=== PATIENT | female | born 1960 | race Asian ===

== ENCOUNTER → 2017-03-06 | Outpatient (CLI) | payer OTHER | END | disposition home or self-care (01) | LOC: C.PAPS 08:42 | PROVIDERS: ATTEND Obstetrics & Gynecology | DX: Z12.4 Encounter for screening for malignant neoplasm of cervix (principal) ==

== ENCOUNTER → 2017-07-27 | Outpatient (CLI) | payer OTHER ==
--- NOTE | 2017-07-27 08:54 | DIAGNOSTIC IMAGING REPORT ---
L-SPINE MIN 4 VIEWS ROUTINE HISTORY: 57 years-old Female J06.9 Acute upper respiratory [id number] acute low back pain on the left side with tingling of the left lower extremity for 2 weeks. COMPARISON: None available TECHNIQUE: 5 views of the lumbar spine FINDINGS: 5 lumbar type vertebral segments are present. Minimal multilevel spondylitic changes. Mild facet arthropathy at L4-L5 and L5-S1. Intervertebral disc spaces are generally well maintained. No acute fracture or subluxation. Mild degenerative changes of the bilateral hips. IMPRESSION: 1. No acute fracture or subluxation. 2. Minimal spondylitic changes of the lumbar spine with mild facet arthropathy at L4-L5 and L5-S1. The above report was generated using voice recognition software. It may contain grammatical, syntax or spelling errors. Electronically signed by: Osmani Perales M.D. 07/27/2017 8:53 AM Dictated Date/Time: 07/27/2017 8:51 AM
== END | disposition home or self-care (01) ==
LOC: C.RAD1850 08:32
PROVIDERS: ATTEND Internal Medicine
DX: J06.9 Acute upper respiratory infection, unspecified (principal)

== ENCOUNTER → 2017-10-16 | Outpatient (CLI) | payer OTHER ==
[2017-10-16 12:15] LABS: BASO % 0.5 %; BASO ABS # 0.04 K/uL (0-0.2); EOS % 1.1 %; EOS ABS # 0.08 K/uL (0-0.5); HEMATOCRIT 41.9 % (37-47); HEMOGLOBIN 14.3 g/dL (12.0-16.0); IG# 0.01 K/uL (0.00-0.02); LYMPH % 40.9 %; LYMPH ABS # 3.09 K/uL (1.2-3.4); MEAN CELL VOLUME 86.2 fL (80-100); MEAN CORPUSCULAR HEMOGLOBIN 29.4 pg (25-34); MEAN CORPUSCULAR HGB CONC 34.1 g/dl (32-36); MONO % 4.5 %; MONO ABS # 0.34 K/uL (0.11-0.59); NEUT % 52.9 %; NEUT ABS # 3.99 K/uL (1.4-6.5); PLATELET COUNT 339 K/uL (130-400); RED CELL DISTRIBUTION WIDTH CV 13.1 % (11.5-14.5); RED CELL DISTRIBUTION WIDTH SD 41.4 fL (36.4-46.3); WHITE BLOOD COUNT 7.55 K/uL (4.8-10.8)
[2017-10-16 12:27] LABS: ALBUMIN 4.2 gm/dl (3.4-5.0); ALT/SGPT 35 U/L (12-78); AST/SGOT 15 U/L (15-37); BLOOD UREA NITROGEN 15 mg/dl (7-18); CALCIUM 9.3 mg/dl (8.5-10.1); CARBON DIOXIDE 25 mmol/L (21-32); CREATININE 0.63 mg/dl (0.60-1.20); GLUCOSE 102 mg/dl (70-99); POTASSIUM 3.7 mmol/L (3.5-5.1); SODIUM 136 mmol/L (136-145)
[2017-10-16 12:30] LABS: ALKALINE PHOSPHATASE 110 U/L (45-117); CHOLESTEROL 251 mg/dl (0-200); LDL CHOLESTEROL CALCULATED 146 mg/dl; TOTAL PROTEIN 7.7 gm/dl (6.4-8.2)
== END | disposition home or self-care (01) ==
LOC: C.LAB1850 10:59
PROVIDERS: ATTEND Internal Medicine
DX: R10.13 Epigastric pain (principal); E78.5 Hyperlipidemia, unspecified; I10 Essential (primary) hypertension

== ENCOUNTER → 2018-01-21 | Outpatient (CLI) | payer OTHER ==
--- NOTE | 2018-01-21 10:10 | DIAGNOSTIC IMAGING REPORT ---
ABDOMINAL ULTRASOUND, RIGHT UPPER QUADRANT HISTORY: EPIGASTRIC PAIN. COMPARISON: None. FINDINGS: Pancreas: The pancreatic tail is obscured by overlying bowel gas. The remaining portions of the pancreas are within normal limits. Liver: The liver is echogenic consistent with fatty change. Gallbladder: No gallbladder wall thickening. No gallstones. CBD: 6 Right kidney: No hydronephrosis. IMPRESSION: 1. Mild hepatic steatosis. 2. Normal gallbladder. No gallstones. Electronically signed by: Steve Sánchez M.D. 01/21/2018 10:08 AM Dictated Date/Time: 01/21/2018 10:07 AM
== END | disposition home or self-care (01) ==
LOC: C.ULTR 09:24
PROVIDERS: ATTEND Internal Medicine
DX: R10.13 Epigastric pain (principal)

== ENCOUNTER → 2018-04-27 | Outpatient (CLI) | payer OTHER | END | disposition home or self-care (01) | LOC: C.LAB1850 11:41 | PROVIDERS: ATTEND Internal Medicine | DX: R39.9 Unspecified symptoms and signs involving the genitourinary system (principal) ==

== ENCOUNTER 2022-10-04 08:41 | Inpatient (IN) ==
[2022-10-04] MEDS ORDERED: NITROGLYCERIN SL 0.4 MG/TAB TAB SL PRN ×2 (08:46→11:18)
[2022-10-04] MEDS ORDERED: ONDANSETRON INJ 2 MG/ML 2 ML VIAL IV STA (08:46)
[2022-10-04] MEDS ORDERED: TICAGRELOR 90 MG TAB PO ONE (08:46)
[2022-10-04] MEDS ORDERED: SODIUM CHLORIDE 0.9% 500 ML IV STA (08:46)
[2022-10-04] MEDS ORDERED: MoRPHine SULFATE 2 MG/ML CARP IV STA (08:46)
--- NOTE | 2022-10-04 08:56 | Emergency Department Note ---
History of Present Illness General Chief complaint: Heart Alert Time Seen by Provider: 10/04/22 08:46 History of Present Illness 62-year-old female presents to the ED with a chief complaint of chest pain. The symptoms started when the patient was shopping at [employer]. She had apparently just arrived there less than an hour ago. EMS was there picking up a fall patient when they were called to evaluate this patient in the lobby. The patient describes pressure in the central area of her chest and retrosternal area. She has associated shortness of breath and some nausea. EMS provided ASA and transported the patient here. The patient has a history of hypertension. She is chronically on amlodipine. She does take a baby aspirin as well as some atorvastatin daily. No other complaints at this time. Home Medications Medication Instructions Recorded Confirmed Type aspirin 81 mg chewable tablet 81 mg PO QAM 11/30/18 10/04/22 History cartilage 40 mg-collagen II 10 1 tab PO QAM 11/30/18 10/04/22 History mg-boron 5 mg-hyaluronate 3.3 mg tablet ([employer]) loratadine 10 mg tablet (Claritin) 10 mg PO DAILY PRN ALLERGY RELIEF 01/29/21 10/04/22 Rx #90 tabs ascorbate calcium (vitamin C) 500 500 mg PO QAM 01/13/22 10/04/22 History mg tablet cholecalciferol (vitamin D3) 50 50 mcg PO QAM 01/14/22 10/04/22 History mcg (2,000 unit) capsule (Vitamin D3) lutein 10 mg tablet 10 mg PO QAM 01/14/22 10/04/22 History amlodipine 5 mg tablet 5 mg PO BID #180 tabs 03/05/22 10/04/22 Rx atorvastatin 10 mg tablet 10 mg PO DAILY #30 tabs 09/05/22 10/04/22 Rx Allergies Allergy/AdvReac Type Severity Reaction Status Date / Time No Known Drug Allergies Allergy Verified 10/04/22 08:50 Past Med/Surg History Medical History Hyperlipidemia Hypertension Kidney stones Seasonal allergies Surgical History H/O colonoscopy with polypectomy History of cataract surgery RT/LEFT History of section x 2 Family History Father Cardiac disorder Myocardial infarction Mother Hypertension Sister Hypertension Brother Skin cancer Grandmother (Paternal) Stomach cancer Other No family history of adverse response to anesthesia Denies family history of Ovarian cancer Prostate cancer Breast cancer Colorectal cancer Social History Smoking Status: Unknown if ever smoked Second Hand Exposure: No; Hx Alcohol Use: No Hx Substance Use: No Preferred Language: Frisian Communication Ability: Effective Visual Impairment: No Limitations Hearing Ability: Normal Piano Player Required: No Beliefs That Will Affect Care: None marital status: Current Living Situation: Spouse current occupational status: employed current occupation: Self-employed Feels Safe at Home: Yes Seatbelt Use: always Assistive Devices: Glasses Review of Systems A total of 10 systems reviewed and were otherwise negative Physical Exam Vital Signs Vital Signs - 24 hr 10/04/22 08:48 10/04/22 08:48 10/04/22 08:54 Temperature 36.7 C Temperature Source Oral Oral Pulse Rate 56 L 76 Pulse Rate from SpO2 Sensor Respiratory Rate 20 Respiratory Effort / Characteristics Non-Labored Spontaneous Respiratory Depth Normal Respiratory Pattern Regular Blood Pressure 120/73 Blood Pressure Mean 88 Blood Pressure Position Lying Pulse Oximetry 98 Oxygen Delivery Method Room Air Room Air Sepsis Recent Fever Within 48 Hours No Sepsis New/Unexplained Change in Mental Status No Sepsis Action Taken by Nursing No Action Required 10/04/22 08:55 10/04/22 08:55 10/04/22 09:00 Temperature Temperature Source Pulse Rate 66 Pulse Rate from SpO2 Sensor Respiratory Rate 23 Respiratory Effort / Characteristics Respiratory Depth Respiratory Pattern Blood Pressure 130/79 147/73 H Blood Pressure Mean 96 97 Blood Pressure Position Pulse Oximetry Oxygen Delivery Method Room Air Room Air Room Air Sepsis Recent Fever Within 48 Hours Sepsis New/Unexplained Change in Mental Status Sepsis Action Taken by Nursing 10/04/22 09:00 Temperature Temperature Source Pulse Rate 57 L Pulse Rate from SpO2 Sensor 58 L Respiratory Rate 15 Respiratory Effort / Characteristics Respiratory Depth Respiratory Pattern Blood Pressure Blood Pressure Mean Blood Pressure Position Pulse Oximetry 100 Oxygen Delivery Method Room Air Sepsis Recent Fever Within 48 Hours Sepsis New/Unexplained Change in Mental Status Sepsis Action Taken by Nursing CONSTITUTIONAL/VITAL SIGNS: Reviewed / noted above. GENERAL: Non-toxic in appearance. INTEGUMENTARY: Warm, dry, and [place]. HEAD: Normocephalic. EYES: without scleral icterus or trauma. ENT/OROPHARYNX: clear and moist. LYMPHADENOPATHY/NECK: Is supple without lymphadenopathy or meningismus. RESPIRATORY: Clear to auscultation bilaterally. No increased work of breathing. CARDIOVASCULAR: Regular rate and rhythm. GI/ABDOMEN: Soft and nontender. No organomegaly or pulsatile mass. EXTREMITIES: Warm and well perfused. BACK: No CVA tenderness. NEUROLOGICAL: Intact without focal deficits. PSYCHIATRIC: normal affect. MUSCULOSKELETAL: Normally developed with good muscle tone. TRIAGE NURSING DOCUMENTATION REVIEWED. Course Administered Medications Nitroglycerin (Nitroglycerin Sl 0.4 Mg/Tab Tab) 0.4 mg SL UD PRN PRN Reason: Chest Pain Stop: 11/03/22 08:45 Last Admin: 10/04/22 09:06 Dose: 0.4 mg Documented By: CHERI Discontinued Medications Heparin Sodium (Porcine) (Heparin Sod (Porcine) 1000 Unit/Ml) 4,000 units IV NOW ONE Stop: 10/04/22 09:05 Last Admin: 10/04/22 09:07 Dose: 4,000 units Documented By: CHERI Co-signed By: BRYAN Sodium Chloride (Nss) 500 mls @ 999 mls/hr IV .Q31M STA Stop: 10/04/22 09:16 Last Admin: 10/04/22 08:59 Dose: 999 mls/hr Documented By: CHERI Morphine Sulfate (Morphine Sulfate 2 Mg/Ml Carp) 2 mg IV NOW STA Stop: 10/04/22 08:47 Last Admin: 10/04/22 08:58 Dose: 2 mg Documented By: CHERI Ondansetron HCl (Ondansetron Inj 2 Mg/Ml 2 Ml Vial) 4 mg IV NOW STA Stop: 10/04/22 08:47 Last Admin: 10/04/22 08:58 Dose: 4 mg Documented By: CHERI Ticagrelor (Ticagrelor 90 Mg Tab) 180 mg PO ONE ONE Stop: 10/04/22 08:47 Last Admin: 10/04/22 08:59 Dose: 180 mg Documented By: CHERI Critical Care Time Critical Care Time: Yes Total Critical Care Time: 30 I have personally spent 30 minutes of critical care time in the direct management of this patient. This includes bedside care, interpretation of diagnostic studies, and testing, discussion with consultants, patient, and family members, and other required patient management activities. This 30 m inutes is in excess of all separately billable procedures. Medical Decision Making Differential Diagnosis The differential that was considered includes acute myocardial infarction, acute coronary syndrome, myocarditis, pericarditis, pericardial effusions /tamponade, esophageal perforation, thoracic aortic dissection, pulmonary embolism, pneumonia, pneumothorax, pancreatitis, shingles, acute cholecystitis, perforated abdominal viscus. Medical Records Attestation: I reviewed the patient's medical records. Home Medications Current Medication List: was personally reviewed by me Laboratory Data Attestation: I reviewed the patient's lab results. Result diagrams: 10/04/22 08:52 10/04/22 08:52 Lab Results 10/04/22 10/04/22 10/04/22 Range/Units 08:52 08:52 08:52 WBC 11.61 H (4.8-10.8) K/ul RBC 4.57 (3.93-5.22) M/uL Hgb 13.3 (12.0-16.0) g/dl POC Hgb (12.0-16.0) g/dl Hct 39.0 (34.1-44.9) % POC Hct (37-47) % MCV 85.3 (80.0-100.0) fL MCH 29.1 (25.0-34.0) pg MCHC 34.1 (32.0-36.0) g/dL RDW Std Deviation 39.3 (36.4-46.3) fL RDW Coeff of Bg 12.7 (11.5-14.5) % Plt Count 412 H (130-400) K/uL MPV 8.8 L (9.4-12.3) fL PT 9.7 (9.0-12.0) Seconds INR 0.9 (0.9-1.1) APTT 21.3 (21.0-31.0) Seconds PTT Ratio 0.8 POC Sodium (135-144) mmol/L Sodium 141 (136-145) mmol/L POC Potassium (3.3-5.0) mmol/L Potassium 3.0 L (3.5-5.1) mmol/L POC Chloride (101-112) mmol/L Chloride 106 (98-107) mmol/L Carbon Dioxide 20 L (21-32) mmol/L POC Total CO2 (24-31) mmol/L Anion Gap 15 H (3-11) POC Anion Gap (16-25) mmol/L POC BUN (7-18) mg/dl BUN 17 (6-23) mg/dl Creatinine 0.68 (0.6-1.2) mg/dl POC Creatinine (0.6-1.3) mg/dl Est Cr Clr Drug Dosing 71.5 ml/min Est GFR ( Amer) 107.1 ml/min Est GFR (Non-Af Amer) 92.4 ml/min BUN/Creatinine Ratio 25.0 H (10-20) Glucose 215 H (70-99(Fasting)) mg/dl POC Glucose (other) (70-99) mg/dl Calcium 9.2 (8.5-10.1) mg/dl POC Ioniz Calcium Guilherme (1.12-1.32) mmol/l Total Bilirubin 0.6 (0.2-1.0) mg/dl AST 21 (13-39) U/L ALT 36 (7-52) U/L Alkaline Phosphatase 108 H (34-104) U/L Troponin I High Sens 4.0 (0-14) pg/ml Total Protein 7.1 (6.0-8.3) gm/dl Albumin 4.5 (3.4-5.0) gm/dl Globulin 2.6 (2.5-4.0) gm/dl Albumin/Globulin Ratio 1.7 (0.9-2) Lipase 19 (11-82) U/L SARS-CoV-2, RNA, NAAT (NEGATIVE) 10/04/22 10/04/22 Range/Units 08:55 08:55 WBC (4.8-10.8) K/ul RBC (3.93-5.22) M/uL Hgb (12.0-16.0) g/dl POC Hgb 13.6 (12.0-16.0) g/dl Hct (34.1-44.9) % POC Hct 40 (37-47) % MCV (80.0-100.0) fL MCH (25.0-34.0) pg MCHC (32.0-36.0) g/dL RDW Std Deviation (36.4-46.3) fL RDW Coeff of Bg (11.5-14.5) % Plt Count (130-400) K/uL MPV (9.4-12.3) fL PT (9.0-12.0) Seconds INR (0.9-1.1) APTT (21.0-31.0) Seconds PTT Ratio POC Sodium 141 (135-144) mmol/L Sodium (136-145) mmol/L POC Potassium 2.9 L (3.3-5.0) mmol/L Potassium (3.5-5.1) mmol/L POC Chloride 105 (101-112) mmol/L Chloride (98-107) mmol/L Carbon Dioxide (21-32) mmol/L POC Total CO2 19 L (24-31) mmol/L Anion Gap (3-11) POC Anion Gap 20.0 (16-25) mmol/L POC BUN 15 (7-18) mg/dl BUN (6-23) mg/dl Creatinine (0.6-1.2) mg/dl POC Creatinine 0.7 (0.6-1.3) mg/dl Est Cr Clr Drug Dosing ml/min Est GFR ( Amer) ml/min Est GFR (Non-Af Amer) ml/min BUN/Creatinine Ratio (10-20) Glucose (70-99(Fasting)) mg/dl POC Glucose (other) 212 H (70-99) mg/dl Calcium (8.5-10.1) mg/dl POC Ioniz Calcium Guilherme 1.08 L (1.12-1.32) mmol/l Total Bilirubin (0.2-1.0) mg/dl AST (13-39) U/L ALT (7-52) U/L Alkaline Phosphatase (34-104) U/L Troponin I High Sens (0-14) pg/ml Total Protein (6.0-8.3) gm/dl Albumin (3.4-5.0) gm/dl Globulin (2.5-4.0) gm/dl Albumin/Globulin Ratio (0.9-2) Lipase (11-82) U/L SARS-CoV-2, RNA, NAAT NEGATIVE (NEGATIVE) Imaging Data My Impression: Chest x-ray: Per my interpretation does not show any acute disease. No pneumonia or pneumothorax. No obvious congestive heart failure. Radiologist's Impression: Chest X-Ray 10/04/22 08:47 XR chest 1V portable CLINICAL HISTORY: Chest pain, nonspecific COMPARISON STUDY: Chest radiograph January 24, 2022. FINDINGS: Lung volumes are normal. Lungs are clear. There is no pneumothorax or pleural effusion. Cardiac size is normal. Mediastinal contours are normal. There is no evidence for pulmonary edema. IMPRESSION: No acute cardiopulmonary findings. ACT 112: Negative or not required by law. Electronically signed by: Scotty Michel M.D. 10/04/2022 9:04 AM ECG Data Attestation: I personally reviewed and interpreted this ECG as follows: Additional Comments: Twelve-lead EKG: Per my interpretation shows a sinus rhythm at a rate of 67 with a first-degree AV block. ST elevations in the inferior leads suggesting acute inferior wall ID. Reciprocal changes anteriorly. MDM Narrative 62-year-old female presents with chest pressure and ST elevations in the inferior leads suggestive of an acute inferior wall ID. The EMS provider called prior to the patient's arrival and a heart alert was called prior to the patient's arrival. She was treated with aspirin p.o. by EMS. 324 mg was given. She was also given a nitroglycerin sublingual which did not seem to help much take your pain from a 10 to a 9. In the emergency department she was treated with some IV fluids 500 cc normal saline bolus. She was also given Brilinta 180 mg p.o., Zofran 4 mg IV and morphine 2 mg IV. She was also given nitroglycerin sublingual here. The patient CBC and chemistry panel was unremarkable. Troponin was negative. Glucose is 215. COVID test was negative. The patient was taken to the [facility] by cardiology services. Impression & Plan Acute ID, inferior wall Discharge Plan Visit Data Chief Complaint: Heart Alert ED Provider: Baljit Tang Discharge Problem: Acute ID, inferior wall Patient Disposition: Admitted As Inpatient Discharge Instructions Interventions: ED Discharge Assessment Last Done: 10/04/22 09:11
[2022-10-04] MEDS ORDERED: niCARdipine HCL INJ 2.5 MG/ML 10 ML AMP ONE (08:57)
[2022-10-04] MEDS ORDERED: HEPARIN (PORCINE) 1000 UNIT/ML 10 ML (CATH LAB USE ONLY) ONE ×2 (08:57→10:30)
[2022-10-04] MEDS ORDERED: MIDAZOLAM HCL 1 MG/ML 2ML VIAL ONE ×2 (08:57→10:09)
[2022-10-04] MEDS ORDERED: fentaNYL citrate 100 MCG/2 ML VIAL ONE ×2 (08:57→10:09)
[2022-10-04] MEDS ORDERED: NITROGLYCERIN/D5W 100MCG/ML 20ML SYR ONE ×2 (08:58→10:11)
[2022-10-04 09:00] LABS: Hemoglobin 13.3 g/dl (12.0-16.0); Mean Corpuscular Hemoglobin 29.1 pg (25.0-34.0); Mean Corpuscular Hgb Conc 34.1 g/dL (32.0-36.0); Mean Corpuscular Volume 85.3 fL (80.0-100.0); Mean Platelet Volume 8.8 fL (9.4-12.3); Platelet Count 412 K/uL (130-400); RDW Coefficient of Variation 12.7 % (11.5-14.5); RDW Standard Deviation 39.3 fL (36.4-46.3); Red Blood Count 4.57 M/uL (3.93-5.22); White Blood Count 11.61 K/ul (4.8-10.8)
[2022-10-04] MEDS ORDERED: LIDOCAINE 1% LOCAL 20 ML VIAL ONE (09:03)
[2022-10-04] MEDS ORDERED: HEPARIN SOD (PORCINE) 1000 UNIT/ML IV ONE (09:04)
--- NOTE | 2022-10-04 09:06 | XRay Report ---
XR chest 1V portable CLINICAL HISTORY: Chest pain, nonspecific COMPARISON STUDY: Chest radiograph January 24, 2022. FINDINGS: Lung volumes are normal. Lungs are clear. There is no pneumothorax or pleural effusion. Car diac size is normal. Mediastinal contours are normal. There is no evidence for pulmonary edema. IMPRESSION: No acute cardiopulmonary findings. ACT 112: Negative or not required by law. Electronically signed by: Scotty Michel M.D. 10/04/2022 9:04 AM
[2022-10-04 09:07] LABS: iSTAT Creatinine 0.7 mg/dl (0.6-1.3); iSTAT Hemoglobin 13.6 g/dl (12.0-16.0); iSTAT Ionized Calcium 1.08 mmol/l (1.12-1.32); iSTAT Potassium 2.9 mmol/L (3.3-5.0)
[2022-10-04 09:18] LABS: INR 0.9 (0.9-1.1); Partial Thromboplastin Ratio 0.8; Partial Thromboplastin Time 21.3 Seconds (21.0-31.0); Prothrombin Time 9.7 Seconds (9.0-12.0)
[2022-10-04 09:36] LABS: Albumin Globulin Ratio 1.7 (0.9-2); Albumin Level 4.5 gm/dl (3.4-5.0); Bilirubin,Total 0.6 mg/dl (0.2-1.0); Calcium 9.2 mg/dl (8.5-10.1); Creatinine Clr Calc Pharmacy 71.5 ml/min; Est GFR (African American) 107.1 ml/min; Est GFR (Non-African American) 92.4 ml/min; Globulin 2.6 gm/dl (2.5-4.0); Total Protein 7.1 gm/dl (6.0-8.3)
[2022-10-04 09:44] LABS: ALC (manual) 6.27 K/uL (1.2-3.4); ANC (manual) 4.88 K/uL (1.4-6.5); Eosinophils # (manual) 0.12 K/uL (0-0.50); Eosinophils % (manual) 1 %; Large Granular Lymph # (manua 3.13 K/uL; Large Granular Lymph % (manual) 27 %; Lymphocytes # (manual) 3.13 K/uL (1.2-3.4); Lymphocytes % (manual) 27 %; Metamyelocytes # (manual) 0.12 K/uL (0-0); Metamyelocytes % (manual) 1 %; Monocytes # (manual) 0.35 K/uL (0.24-0.82); Monocytes % (manual) 3 %; Neutrophils # (manual) 4.88 K/uL (1.4-6.5); Neutrophils % (manual) 42 %
[2022-10-04] MEDS ORDERED: EPTIFIBATIDE 0.75 MG/ML 75MG VIAL (CATH LAB USE ONLY) IV ONE (10:29)
[2022-10-04] MEDS ORDERED: EPTIFIBATIDE 2 MG/ML 10 ML VIAL (CATH LAB USE ONLY) IV ONE ×2 (10:30)
[2022-10-04] MEDS ORDERED: SODIUM CHLORIDE 0.9% 1000ML 1,000 ML IV SCH (11:30)
--- NOTE | 2022-10-04 11:38 | Pre Anesthesia Assessment ---
Date of Service October 04, 2022 Pre Sedation Assessment Vital Signs Temp Pulse Resp BP Pulse Ox O2 Del Method 10/04/22 09:00 57 L 15 100 Room Air 10/04/22 09:00 147/73 H Room Air 10/04/22 08:55 130/79 Room Air 10/04/22 08:55 66 23 Room Air 10/04/22 08:54 76 Room Air 10/04/22 08:48 36.7 C 10/04/22 08:48 56 L 20 120/73 98 Room Air Cardiovascular RRR, no murmur, no edema Respiratory normal respiratory effort, lungs clear to auscultation Pre-Sedation Airway Assessment Smoking Status: Unknown if ever smoked Mallampati 2 ASA for Notes The planned sedation has been discussed with the patient. Informed Consent was obtained. I have identified the patient, determined the appropriateness of sedation and have assessed the patient immediately prior to the procedure. All medicine(s) and interventions are by my order.
--- NOTE | 2022-10-04 11:40 | Post Anesthesia Assessment ---
Date of Service October 04, 2022 Post Sedation Assessment Vital Signs Temp Pulse Resp BP Pulse Ox O2 Del Method 10/04/22 09:00 57 L 15 100 Room Air 10/04/22 09:00 147/73 H Room Air 10/04/22 08:55 130/79 Room Air 10/04/22 08:55 66 23 Room Air 10/04/22 08:54 76 Room Air 10/04/22 08:48 36.7 C 10/04/22 08:48 56 L 20 120/73 98 Room Air Recovery Score Activity: Moves 4 extremities Respiration: Deep Breath/Cough Circulation: +/-20% PreAnes Value Consciousness: Fully Awake Oxygen Saturation: > 92% On Room Air Discharge Sedation Level of Care: Phase I Post Sedation Plan On clinical assessment, the patient appears to have tolerated the sedation without complications. Patient is recovering as anticipated. Patient will continue to be monitored by nursing and may be discharged when sedation discharge criteria are met per below protocol. Upon Completions of procedure up to 15 minutes continue every 5 minute vital signs and the P.A.R. score; then discharge to a Phase I or Fast Track to Phase II per the following guidelines: * Discharge Patient to appropriate Phase II area if PAR is 8 or greater or return to pre- procedure baseline. The post - procedure orders will be as directed. * If PAR score is less than 8 or not return to pre-procedure baseline then patient will follow Phase I monitoring till PAR is reached for Phase II. The Phase I may be done in procedure room or may call to secure a Phase I area. * If naloxone or flumazenil are used for reversal, hold in Phase I for continued monitoring from when last reversal dose was given for a minimum of 60 minutes or longer pending the nurse and/or physician discretion of patient condition before discharge to Phase II. Please call the Sedation Physician to re-evaluate and complete post-note for discharge to Phase II area. Do NOT discharge from procedure sedation or Phase 1 until post- sedation evaluation note is complete by procedure /sedation MD Sedation Discharge Instructions to be given to the patient at discharge to home. [facility] [place]odes (Charges) Indication for Procedure Indication for procedure: Inferior STEMI Sedation/Anesthesia Procedure 1: Sedation/Anesthesia: 85555 Mod Sedation by the same physician;Init15 Min Child Age 5 & Up Total Sedation Time (minutes): 100 Procedure 2: Sedation/Anesthesia: 20299 Mod Sedation by the same physician; Ea [id number] Minutes (Additional 85 minutes) Total Sedation Time (minutes): 100
--- NOTE | 2022-10-04 11:55 | Critical Care Consultation ---
Date of Consultation October 04, 2022 Assessment & Plan (1) Acute [place], inferior wall: Impression: 62-year-old female patient presents to the ICU status post heart catheterization. Neuro - [facility] ICU: Negative Cardiac - S/P Cardiac Cath -Nursing staff reported 2 drug-eluting stents -Dual antiplatelet therapy -Reported requires Integrilin to finish infusing Respiratory - - Continuous monitoring pulse ox GI - Heart healthy diet -Hypertriglyceridemia and hypercholesterolemia -High intensity statin RENAL/LYTES - Monitor routine BMPs -Hypokalemia -40 M EQ twice daily - Strict I's and O's ENDO - - hemoglobin A1c pending HEME - H&H stable, monitor routine CBC ID - No negation for infectious process at this time LINES/IV ACCESS - Peripheral IVs DVT PROPHYLAXIS - SCDs, on heparin drip History of Present Illness Reason for Consultation: Status post PCI for ST elevation [place] Attending Physician: Hardy Muller MD History of Present Illness Patient is a 62-year-old female with crushing retrosternal chest pain that she experienced while shopping at [employer]. She was brought by EMS to the emergency department and was diagnosed with an ST elevation [place]. She went emergently to the [facility] and received what was reported to me as 2 drug-eluting stents, currently documentation confirming this is not in the EMR. She was reported to have significant improvement and then had return of 9 out of 10 chest pain which prompted repeat evaluation and the patient was found to have thrombus performed in the recently placed drug-eluting stents. This was evacuated. Currently the patient has 1 out of 10 chest pain and is significantly improved. Allergies Allergy/AdvReac Type Severity Reaction Status Date / Time No Known Drug Allergies Allergy Verified 10/04/22 08:50 Home Medications Medication Instructions Recorded Confirmed Type aspirin 81 mg chewable tablet 81 mg PO QAM 11/30/18 10/04/22 History cartilage 40 mg-collagen II 10 1 tab PO QAM 11/30/18 10/04/22 History mg-boron 5 mg-hyaluronate 3.3 mg tablet (Trunkbow) loratadine 10 mg tablet (Claritin) 10 mg PO DAILY PRN ALLERGY RELIEF 01/29/21 1 Rx #90 tabs ascorbate calcium (vitamin C) 500 500 mg PO QAM 01/13/22 10/04/22 History mg tablet cholecalciferol (vitamin D3) 50 50 mcg PO QAM 01/14/22 10/04/22 History mcg (2,000 unit) capsule (Vitamin D3) lutein 10 mg tablet 10 mg PO QAM 01/14/22 10/04/22 History amlodipine 5 mg tablet 5 mg PO BID #180 tabs 03/05/22 10/04/22 Rx atorvastatin 10 mg tablet 10 mg PO DAILY #30 tabs 09/05/22 10/04/22 Rx Patient History Medical History Hyperlipidemia Hypertension Kidney stones Seasonal allergies Surgical History H/O colonoscopy with polypectomy History of cataract surgery RT/LEFT History of section x 2 Family History Father Cardiac disorder Myocardial infarction Mother Hypertension Sister Hypertension Brother Skin cancer Grandmother (Paternal) Stomach cancer Other No family history of adverse response to anesthesia Denies family history of Ovarian cancer Prostate cancer Breast cancer Colorectal cancer Social History Smoking Status: Unknown if ever smoked Second Hand Exposure: No; Hx Alcohol Use: No Hx Substance Use: No Preferred Language: Arabic Communication Ability: Effective Visual Impairment: No Limitations Hearing Ability: Normal Solution Director Required: No Beliefs That Will Affect Care: None marital status: Current Living Situation: Spouse current occupational status: employed current occupation: Self-employed Feels Safe at Home: Yes Seatbelt Use: always Assistive Devices: Glasses Review of Systems Review of Systems: 1 out of 10 retrosternal chest pain. Physical Exam Physical Exam: General: Alert. nontoxic. Skin: Warm, dry, Head: Atraumatic Ears, nose, mouth and throat: airway patent Cardiovascular: Normal peripheral perfusion Respiratory: no respiratory distress Gastrointestinal: Non distended Musculoskeletal: No deformity Results & Data Results & Data ([facility]) Vital Signs (Past 12 Hours) Vital Signs Temp Pulse Pulse Resp BP BP Pulse Ox 10/04/22 11:15 36.1 C L 88 20 150/98 H 94 10/04/22 09:00 57 L 15 100 10/04/22 09:00 147/73 H 10/04/22 08:55 130/79 10/04/22 08:55 66 23 10/04/22 08:54 76 10/04/22 08:48 36.7 C 10/04/22 08:48 56 L 20 120/73 98 O2 Del Method 10/04/22 11:15 Room Air 10/04/22 09:00 Room Air 10/04/22 09:00 Room Air 10/04/22 08:55 Room Air 10/04/22 08:55 Room Air 10/04/22 08:54 Room Air 10/04/22 08:48 10/04/22 08:48 Room Air Critical Care Results & Data Vital Signs (Past 12 Hours) Vital Signs Temp Pulse Pulse Resp BP BP Pulse Ox 10/04/22 11:15 36.1 C L 88 20 150/98 H 94 10/04/22 09:00 57 L 15 100 10/04/22 09:00 147/73 H 10/04/22 08:55 130/79 10/04/22 08:55 66 23 10/04/22 08:54 76 10/04/22 08:48 36.7 C 10/04/22 08:48 56 L 20 120/73 98 O2 Del Method 10/04/22 11:15 Room Air 10/04/22 09:00 Room Air 10/04/22 09:00 Room Air 10/04/22 08:55 Room Air 10/04/22 08:55 Room Air 10/04/22 08:54 Room Air 10/04/22 08:48 10/04/22 08:48 Room Air Lab & Micro Results (Past 24 Hours) RBC 4.57 M/uL (3.93-5.22) 10/04/22 WBC 11.61 K/ul (4.8-10.8) H 10/04/22 Hgb 13.3 g/dl (12.0-16.0) 10/04/22 Hct 39.0 % (34.1-44.9) 10/04/22 MCV 85.3 fL (80.0-100.0) 10/04/22 MCH 29.1 pg (25.0-34.0) 10/04/22 MCHC 34.1 g/dL (32.0-36.0) 10/04/22 RDW Standard Deviation 39.3 fL (36.4-46.3) 10/04/22 RDW Coefficient of Variation 12.7 % (11.5-14.5) 10/04/22 Plt Count 412 K/uL (130-400) H 10/04/22 MPV 8.8 fL (9.4-12.3) L 10/04/22 ANC 4.88 K/uL (1.4-6.5) 10/04/22 ALC 6.27 K/uL (1.2-3.4) H 10/04/22 Neutrophils % (Manual) 42 % 10/04/22 Lymphocytes % (Manual) 27 % 10/04/22 Large Granular Lymphocytes 27 % 10/04/22 Monocytes % (Manual) 3 % 10/04/22 Eosinophils % (Manual) 1 % 10/04/22 Metamyelocytes % (manual) 1 % 10/04/22 Neutrophils # (Manual) 4.88 K/uL (1.4-6.5) 10/04/22 Lymphocytes # (Manual) 3.13 K/uL (1.2-3.4) 10/04/22 Absolute Large Granular Lymphocytes 3.13 K/uL 09/06 10/26 Monocytes # (Manual) 0.35 K/uL (0.24-0.82) 10/04/22 Eosinophils # (Manual) 0.12 K/uL (0-0.50) 10/04/22 Metamyelocytes # (Manual) 0.12 K/uL (0-0) H 10/04/22 Na 141 mmol/L (136-145) 10/04/22 K 3.0 mmol/L (3.5-5.1) L 10/04/22 Cl 106 mmol/L (98-107) 10/04/22 CO2 20 mmol/L (21-32) L 10/04/22 Anion Gap 15 (3-11) H 10/04/22 BUN 17 mg/dl (6-23) 10/04/22 Creatinine 0.68 mg/dl (0.6-1.2) 10/04/22 Estimated GFR ( Amer) 107.1 ml/min 10/04/22 Estimated GFR (Non-Af Amer) 92.4 ml/min 10/04/22 BUN/Creatinine Ratio 25.0 (10-20) H 10/04/22 Glu 215 mg/dl (70-99(Fasting)) H 10/04/22 Ca 9.2 mg/dl (8.5-10.1) 10/04/22 Total Bilirubin 0.6 mg/dl (0.2-1.0) 10/04/22 AST 21 U/L (13-39) 10/04/22 ALT 36 U/L (7-52) 10/04/22 Alkaline Phosphatase 108 U/L (34-104) H 10/04/22 TP 7.1 gm/dl (6.0-8.3) 10/04/22 Albumin 4.5 gm/dl (3.4-5.0) 10/04/22 Globulin 2.6 gm/dl (2.5-4.0) 10/04/22 Albumin/Globulin Ratio 1.7 (0.9-2) 10/04/22 Calcium Level 9.2 mg/dl (8.5-10.1) 10/04/22 08:52 Prothromb Time International Ratio 0.9 (0.9-1.1) 10/04/22 08:5 2 Diagnostic Findings (Past 24 Hours) Chest X-Ray 10/04/22 08:47 XR chest 1V portable CLINICAL HISTORY: Chest pain, nonspecific COMPARISON STUDY: Chest radiograph January 24, 2022. FINDINGS: Lung volumes are normal. Lungs are clear. There is no pneumothorax or pleural effusion. Cardiac size is normal. Mediastinal contours are normal. There is no evidence for pulmonary edema. IMPRESSION: No acute cardiopulmonary findings. ACT 112: Negative or not required by law. Electronically signed by: Scotty Michel M.D. 10/04/2022 9:04 AM RT Ventilator Mngmt (Last Documented) Ventilator Ordered Settings Respiratory Rate 20 10/04/22 11:15 Ventilator - PT Measurements Respiratory Rate 20 Coding Level of Care Code 89999 Inpt Consult Level 4 Diagnoses Acute [place], inferior wall I21.19
--- NOTE | 2022-10-04 11:57 | Cardiac Catheterization ---
ACC Data: Benefit Specialist Cardiac Status Clinical evaluation leading to the procedure CAD Presenation: STEMI Anginal Classification: CCS IV Heart Failure: No Cardiogenic Shock within 24 Hours: No Cardiac Arrest within 24 Hours: No Imaging Studies Past 6 Months: No STEMI OR Non-STEMI Symptom Onset Date: 09/11/22 Symptom Onset Time: 08:00 Thrombolytics: No Coronary Anatomy Dominant: Right Left Main (% Stenosis): Distal (20%) LAD (% Stenosis): Normal (Mild) D1 (% Stenosis): Normal Circumflex (% Stenosis): Normal OM1 (% Stenosis): Normal OM2 (% Stenosis): Normal RCA (% Stenosis): Proximal (99% with thrombus) and Distal (Long 70 to 80%) R PDA (% Stenosis): Normal R PL1 (% Stenosis): Normal Left Ventricular Angiography EF (%): 50 Wall Motion: Inferior Mitral Regurgitation: 1+ Diagnostic Physicians Name: Gualberto Avery MD, PhD Closure Device Percutaneous Entry Location: Both radial and femoral Closure Device: Angio-Seal and Radial Band Recommendations: Medical Therapy and/or Counseling and PCI without planned CABG PCI Indication: PCI for STEMI - Stable First Noted: First EKG Lesion Segment Name: Proximal and distal RCA Culprit Artery: Yes Stenosis Prior to Rx (%): 99% and 70 to 80% Chronic Total Occlusion: No Pre-Procedure TAVARES Flow: 1 Previously Treated Lesion: No Lesion Complexity: Non-High/Non-C Lesion Length (mm): Proximal 12 mm, distal 20 mm Thrombus Present: Yes Bifurcation Lesion: No Guidewire Across Lesion: Yes Intraprocedure Events Significant Disection: No Cardiac Cath Procedure Full Procedure Date October 04, 2022 Pre-Procedure Diagnosis Pre-Procedure Diagnosis: STEMI AUC Score AUC Score: 09 Post-Procedure Diagnosis Post-Procedure Diagnosis: Severe CAD Procedure(s) Performed Procedure(s) Performed: Coronary Angiography, Left Heart Cath and Drug Eluting Stent Scientific Informatics Project Leader Gualberto Avery MD, PhD Estimated Blood Loss Estimated Blood Loss: 15 mL Medication(s) Medication(s): Atropine, Fentanyl, Heparin, Integrilin, Lidocaine 1%, Morphine, Nicardipine, Nitroglycerin and Versed Summary of Findings Brief description: Patient was brought emergently to the cardiac catheterization suite where she was shaved and prepped in a sterile fashion. Sedated using IV Versed and fentanyl. Soft tissues of the right wrist were anesthetized using 2 mL of 1% Xylocaine. Right radial artery was accessed using modified Seldinger technique and a 6 Gren[place] radial artery glide sheath was placed. Patient had already been provided IV heparin in the emergency department. We attempted to advance the catheter over the wire but the patient had significant tortuosity in the antecubital fossa and we could not safely advance the catheter. Therefore, we decided to remove the catheter and wire and access via the right femoral artery. Soft tissues of the right groin were anesthetized using 10 mL of 1% Xylocaine. The right femoral artery was accessed using modified Seldinger technique and a 6 Gren[place] sheath was placed. All catheters were advanced and exchanged over a 0.035 J-tip wire. Right coronary angiography was performed in orthogonal views with a 6 Grenadian JR4 guide catheter. ACT was checked and additional heparin was provided. We proceeded immediately to PCI. [place] versa guidewire was advanced through the guide catheter and positioned distally in the RCA. The thrombotic lesion was predilated using a 2.5 x 12 mm balloon inflated initially to 12 elsy and then to 10 elsy. The balloon catheter was then removed. A 2.75 x 18 mm Magdi drug- eluting stent was then implanted at 14 elsy across the lesion. Stent balloon was removed. Angiography was performed and there was a long residual narrowing in the distal RCA which was felt may be vasospasm. However, after 100 mcg of intra coronary nitroglycerin there was not significant improvement in the stenosis. Therefore we decided to implant a stent distally as well. Of note, the patient still had chest pain and ST elevations on the monitor. A 2.5 x 12 mm balloon was therefore reinserted and the distal RCA stenosis was predilated up to 8 elsy. Then, a 2.5 x 26 mm Magdi drug-eluting stent was passed across the lesion and deployed at 17 elsy. Patient's chest pain got somewhat better and her EKG improved. A 2.75 x 12 mm noncompliant balloon was then advanced and the proximal stent was postdilated at 14 elsy distally and 18 elsy proximally. Angiography was performed with the guidewire in place. There was some mild residual thrombus but TAVARES-3 flow. Therefore, final angiographic evaluation was performed with a guidewire removed. The guide catheter was then removed over the J-wire. Left coronary angiography was performed in orthogonal views with a 5 Grenadian JR4 diagnostic catheter. Left heart cath and left ventriculogram were performed with a 5 Grenadian pigtail catheter. Diagnostic catheters were removed. Limited right femoral artery angiography was performed to evaluate for closure. Findings were favorable, therefore, the femoral artery sheath was removed and a 6 Gren[place] Angio-Seal closure device was used for hemostasis. This was deployed in the recommended fashion and we obtained immediate hemostasis. ACT was checked prior to closure and was still below target. Therefore, additional heparin was provided. Patient still had mild chest pain but her ST segments had resolved. I went to speak with the family but was called back in because she suddenly developed much more severe chest pain and had significant ST elevations. She was reprepped and draped in a sterile fashion. Soft tissues of the left groin were anesthetized using 10 mL of 1% Xylocaine. The left femoral artery was accessed using modified Seldinger technique and a 6 Gren[place] femoral artery sheath was placed. A 6 Gren[place] JR4 guide catheter was then advanced over the J-wire and used to engage the right coronary. Lead Neurodiagnostic Technologist angiography performed showing acute thrombosis of the proximal stent. ACT was checked and was lower than previous. This suggested patient was not receiving the heparin IV. Therefore, I gave the patient 5000 units intra-arterially and she was started on Integrilin as a double bolus administration followed by drip via a second IV. A BMW reversal guidewire was then advanced through the guide catheter and positioned distally. A 2.5 x 12 mm balloon was then readvanced and angioplasty to disrupt thrombus was performed within the proximal stent multiple times up to 14 elsy. This was removed and we had significant improvement in flow and resolution of the patient's chest discomfort and EKG changes. There was residual haziness in the proximal stent so decision was made to implant a 3.0 x 8 mm [place] drug-eluting stent and overlapped fashion just proximal to the initial stent. This was then deployed at 14 elsy. The balloon was deflated and advanced to the initial stent where the proximal segment was dilated up to 12 elsy. The balloon was then removed. Final postdilatation in the proximal stent train was performed using a 3.0 x 9 mm noncompliant balloon at 10 elsy in the distal segment, 12 elsy in the midsegment, and 15 elsy proximally to the edge of the 3.0 mm stent. The balloon was then removed and angiography was performed with a guidewire in place. There were good angiographic result and therefore the guidewire was removed and final angiographic evaluation was performed. The guide catheter was then removed. Limited left femoral artery angiography was performed to evaluate for closure. Findings were favorable, therefore, the femoral artery sheath was exchanged for a 6 Grenadian Angio-Seal closure device. This was deployed in the recommended fashion. We obtained immediate hemostasis and the patient remained hemodynamically stable. She was completely asymptomatic at this time. EKG returned to normal. She was then ready for transfer to to the ICU. This ended the case. Angiographic findings and PCI: LMT: Large caliber bifurcating into LAD and circumflex. Distal 20% stenosis. LAD: Large and transapical. Provides a large septal branch and a large branching diagonal. There is mild disease proximally in the remainder of the LAD and its branches have no more than mild luminal irregularities. LCx: This is large caliber and nondominant. Travels in the AV groove giving a medium caliber high arising OM1. Then, it gives a large caliber branching OM 2. The distal AV groove vessel becomes smaller and tapers as it terminates. There is no more than mild luminal irregularities in the circumflex and its branches. RCA: Large caliber and dominant vessel. 99% occluded at the junction of the proximal and mid segments. There is TAVARES I flow beyond this segment. There is a long eccentric stenosis distally of 70 to 80% and then the vessel bifurcates into a large and long PDA and a large and branching posterolateral. These vessels have mild luminal irregularities. No significant improvement in the distal vessel after intracoronary nitroglycerin. PCI: Drug-eluting stent train with 2 overlapped drug-eluting stents in the proximal to mid vessel is reduced to 0% stenosis after stent implantation. Distal lesion long drug-eluting stent implanted with 0% residual stenosis post PCI TAVARES-3 flow post PCI No evidence of dissection or perforation post PCI Good myocardial blush post PCI LVEF: 50%, mild inferior hypokinesis Recommendations: 1. dual antiplatelet therapy with aspirin and Brilinta for at least 1 to 2 years. 2. Guideline directed medical therapy for secondary prevention of coronary disease including low-dose aspirin, high intensity statin therapy, beta-varsha, plus or minus LAKISHA inhibitor/ARB. 3. Because of the stent thrombosis patient will remain on Integrilin for 1 to 2 hours until Brilinta is fully absorbed. Final ACT was therapeutic and there was no residual clot. Hemodynamics Rest Ao:: 136/62 mmHg, mean 90 mmHg Final Ao: 148/83 mmHg, mean 116 mmHg LV: 152/8 mmHg, LVEDP 14 mmHg Recommendations Recommendations: Medical Therapy and/or Counseling and PCI without planned CABG Radiation Exposure (mGy) 2373 mGy, fluoroscopy time 23.6-minute Contrast (mls) 230 mL Anesthesia 2 mg IV Versed, 100 mcg IV fentanyl Procedural Complication(s) Acute stent thrombosis Disposition ICU I attest to the content of the Intraoperative Record and any orders documented therein. Any exceptions are noted below. [facility] Card Cath Procedure Codes Cardiac Catheterization Procedure 1: Cardiovascular Cath Procedures: 57958 Coronaries and LHC (+/-LV) Moderate Sedation Procedure 1: Sedation/Anesthesia: 44186 Mod Sedation by the same physician;Init15 Min Child Age 5 & Up (Initial 15 minutes (total 100 minutes)) Procedure 2: Sedation/Anesthesia: 26500 Mod Sedation by the same physician; Ea [id number] Minutes (Additional 85 minutes (total 100 minutes)) Stenting Procedure 1: Cardiovascular Stent Procedures: 84725 Perc transluminal revascularization of acute sub/total occl, aMI (RCA) PG Care Time/CCT Total # of Minutes Spent Total Time Spent with Patient: Total time spent is greater than 50% in coordination of care (as documented) at patient's floor/unit and/or counseling patient:
[2022-10-04] MEDS: ICU Protocol for HYPERglycemia SCH ×2 (12:57→16:26)
[2022-10-04] MEDS: ATORVASTATIN 40 MG TAB PO SCH (13:30)
[2022-10-04] MEDS: PANTOprazole 40 MG TAB PO SCH (13:31)
[2022-10-04] MEDS: POTASSIUM CHLORIDE CRTAB 20 MEQ TABCR PO SCH ×2 (13:33→19:23)
--- NOTE | 2022-10-04 14:18 | Cardiology Consultation ---
Date of Consultation October 04, 2022 Assessment & Plan (1) Acute SC, inferior wall: Status post PCI with implantation of 2 overlapping drug-eluting stents in the proximal to mid RCA and one long stent in the distal RCA. No significant residual stenosis in the other coronaries. She will remain on dual antiplatelet therapy with aspirin 81 mg daily and Brilinta 90 mg p.o. twice daily. We are also initiating guideline directed medical therapy for secondary prevention of coronary disease including; high intensity statin therapy, beta-varsha, and angiotensin receptor varsha. These will be titrated to clinical targets. She should remain in the ICU for at least 24 hours per standard of care. Patient will undergo echocardiogram to evaluate for additional abnormalities in cardiac structure or function. Further recommendations pending results of the echocardiogram. (2) Impaired fasting glucose: Hemoglobin A1c was 6.3. Internal medicine consultation regarding management. (3) Hypertension: Blood pressure is elevated. She was on amlodipine prior to admission. We will stop that at this time and provide her with beta-varsha and angiotensin receptor varsha given cardiac and diabetes indications. We will titrate up as tolerated. Targeting systolic blood pressure less than 140 and heart rate at rest in the 60s to low 70s. 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 High intensity statin therapy is recommended. Her untreated LDL was 160. This makes target LDL reduction to 80 or less. Beginning a atorvastatin 40 mg daily. If needed, additional medication will be added as an outpatient. Plan Patient will remain in ICU for 24 hours assuming no complications. Then, she will be ready for stepdown unit on telemetry. If she has no further complications at that point and is tolerating her medications she will be ready for discharge after 48 hours. I will continue to follow. History of Present Illness Reason for Consultation: Acute onset chest pain with inferior ST elevation on EKG Attending Physician: Hardy Muller MD History of Present Illness 62-year-old female who presented after developing sudden onset severe 10 out of 10 chest pressure and shortness of breath which began around 8:00 this morning. In the emergency department she was found to have electrocardiographic evidence of acute inferior ST elevation SC. A "heart alert" was called and on my arrival she continued with severe chest pain. EKG consistent with acute inferior ST elevation SC. We briefly discussed recommendation for emergent cardiac catheterization and she agreed. Evidently she had received 4000 units IV heparin, aspirin, and Brilinta in the emergency department. She underwent diagnostic cardiac cath and PCI for occlusion of the right coronary artery. Ultimately received 3 drug-eluting stents to the RCA. She had acute stent thrombosis after the first 2 stents were placed and recurrence of ST elevations and symptoms. Therefore, performed angioplasty and determined that her IV heparin was likely not infusing into the vein. She was given heparin via the artery and her ACT was therapeutic. We added a third stent proximal to the first in an overlapped fashion and then postdilated the entire segment. This gave good angiographic results, resolution of her discomfort as well as her EKG changes. She is now in the intensive care unit. Her is with her. She has no chest pain at this time. Denies any shortness of breath. Is fatigued and has a dry mouth but has no other complaints. She has a limited Uzbek vocabulary but seems to understand Uzbek reasonably well. Her has better Uzbek skills and is helpful in explaining to her clinical events and anticipated course of treatment. She admits that for the past week she has had intermittent episodes of exertional chest tightness which resolved with rest. She tells me she had similar symptoms 10 years ago but work-up at that time was unrevealing for cardiac problems. She also tells me that she has had very high cholesterol. Initially tried to treat this with exercise and diet. However, her cholesterol remained elevated and she was prescribed statin. However, she did not take the statin. Her father had history of myocardial infarction and significant coronary disease. She has had problems with blood pressure. She denies recent history of syncope, near syncope, orthopnea, PND, racing heartbeat, or palpitations. She does have frequent mild lower extremity edema right greater than left. Allergies Allergy/AdvReac Type Severity Reaction Status Date / Time No Known Drug Allergies Allergy Verified 10/04/22 08:50 Home Medications Medication Instructions Recorded Confirmed Type aspirin 81 mg chewable tablet 81 mg PO QAM 11/30/18 10/04/22 History cartilage 40 mg-collagen II 10 1 tab PO QAM 11/30/18 10/04/22 History mg-boron 5 mg-hyaluronate 3.3 mg tablet ([facility]) loratadine 10 mg tablet (Claritin) 10 mg PO DAILY PRN ALLERGY RELIEF 01/29/21 10/04/22 Rx #90 tabs ascorbate calcium (vitamin C) 500 500 mg PO QAM 01/13/22 10/04/22 History mg tablet cholecalciferol (vitamin D3) 50 50 mcg PO QAM 01/14/22 10/04/22 History mcg (2,000 unit) capsule (Vitamin D3) lutein 10 mg tablet 10 mg PO QAM 01/14/22 10/04/22 History amlodipine 5 mg tablet 5 mg PO BID #180 tabs 03/05/22 10/04/22 Rx atorvastatin 10 mg tablet 10 mg PO DAILY #30 tabs 09/05/22 10/04/22 Rx Patient History Medical History Hyperlipidemia Hypertension Kidney stones Seasonal allergies Surgical History H/O colonoscopy with polypectomy History of cataract surgery RT/LEFT History of section x 2 Family History Father Cardiac disorder Myocardial infarction Mother Hypertension Sister Hypertension Brother Skin cancer Grandmother (Paternal) Stomach cancer Other No family history of adverse response to anesthesia Denies family history of Ovarian cancer Prostate cancer Breast cancer Colorectal cancer Social History Smoking Status: Unknown if ever smoked Second Hand Exposure: No; Hx Alcohol Use: No Hx Substance Use: No Preferred Language: Uzbek Communication Ability: Effective Visual Impairment: No Limitations Hearing Ability: Normal Books Binder Required: No Beliefs That Will Affect Care: None marital status: Current Living Situation: Spouse current occupational status: employed current occupation: Self-employed Other Information That Helps Us Care for You: No Feels Safe at Home: Yes Seatbelt Use: always Assistive Devices: Glasses Review of Systems Review of Systems: No fevers, chills, cough, sputum production, abdominal pain, hemoptysis, hematemesis, dysuria, hematuria, or melena. The remainder of her 12 point review systems is negative except as per HPI. Physical Exam Constitutional: WD/WN, vitals as above Eyes: PERRL, conjunctivae normal, anicteric sclerae ENMT: external ear and nose normal, oropharynx normal (Oral mucosa is dry) Neck: No JVD Respiratory: normal respiratory effort, lungs clear to auscultation (No wheezing, rhonchi, or rales.) Cardiovascular: RRR, no murmur, no edema (No rubs. S4 gallop. Only trace right lower extremity edema.) Musculoskeletal: no cyanosis or clubbing, extremities motor strength 5/5 (Good distal perfusion right hand, bilateral lower extremities) Neurologic: Cognition intact. Speech is fluent. No focal deficits. Psychiatric: A+Ox3, euthymic affect Results & Data ([facility]) Vital Signs (Past 12 Hours) Vital Signs Temp Pulse Pulse Resp BP BP Pulse Ox 10/04/22 14:03 36.6 C 10/04/22 13:03 36.8 C 95 10/04/22 12:45 90 17 95 10/04/22 12:45 143/89 H 10/04/22 12:30 88 16 95 10/04/22 12:30 148/86 H 10/04/22 12:15 90 18 95 10/04/22 12:15 138/83 10/04/22 12:00 88 20 92 10/04/22 12:00 137/87 10/04/22 11:45 87 16 94 10/04/22 11:45 143/89 H 10/04/22 11:30 83 22 95 10/04/22 11:30 157/95 H 10/04/22 11:22 150/98 H 10/04/22 11:22 87 18 10/04/22 11:19 84 16 10/04/22 11:29 90 10/04/22 12:03 36.4 C L 10/04/22 11:33 36.4 C L 10/04/22 11:18 36.1 C L 88 20 150/98 H 94 10/04/22 11:15 36.1 C L 88 20 150/98 H 94 10/04/22 09:00 57 L 15 100 10/04/22 09:00 147/73 H 10/04/22 08:55 130/79 10/04/22 08:55 66 23 10/04/22 08:54 76 10/04/22 08:48 36.7 C 10/04/22 08:48 56 L 20 120/73 98 O2 Del Method 10/04/22 14:03 10/04/22 13:03 Room Air 10/04/22 12:45 10/04/22 12:45 10/04/22 12:30 10/04/22 12:30 10/04/22 12:15 10/04/22 12:15 10/04/22 12:00 10/04/22 12:00 10/04/22 11:45 10/04/22 11:45 10/04/22 11:30 10/04/22 11:30 10/04/22 11:22 10/04/22 11:22 10/04/22 11:19 10/04/22 11:29 10/04/22 12:03 10/04/22 11:33 10/04/22 11:18 Room Air 10/04/22 11:15 Room Air 10/04/22 09:00 Room Air 10/04/22 09:00 Room Air 10/04/22 08:55 Room Air 10/04/22 08:55 Room Air 10/04/22 08:54 Room Air 10/04/22 08:48 10/04/22 08:48 Room Air PG Care Time/CCT Total # of Minutes Spent Total Time Spent with Patient: Total time spent is greater than 50% in coordination of care (as documented) at patient's floor/unit and/or counseling patient: Critical Care Time: Yes Total Critical Care Time: 75 I spent a total of 75 minutes in initial evaluation, review of records, examination, discussion with family, other providers, and with patient. Furthermore, this includes time spent in formulation and implementation of a plan of care, further discussion and examination in the ICU after her procedure, and documentation of all of the above. This time is exclusive of the time spent for the procedure. [place] [address] Inpt Consult Level 5 Patient Type New Diagnoses Acute SC, inferior wall I21.19 Impaired fasting glucose R73.01 Hypertension I10 Atherogenic dyslipidemia E78.5 Additional Codes Critical Care Time - Critical Care Time: Yes ([id number]) Time Spent (min) 75
--- NOTE | 2022-10-04 14:54 | Electrocardiogram Report ---
Test Reason : Blood Pressure : / mmHG Vent. Rate : 067 BPM Atrial Rate : 067 BPM P-R Int : 218 ms QRS Dur : 108 ms QT Int : 402 ms P-R-T Axes : 051 067 093 degrees QTc Int : 424 ms Poor data quality, interpretation may be adversely affected Sinus rhythm with sinus arrhythmia with 1st degree A-V block Possible Left atrial enlargement ST elevation consider inferior injury or acute infarct ACUTE MN / STEMI Consider right ventricular involvement in acute inferior infarct Abnormal ECG When compared with ECG of 24-JAN-2022 10:48, ST elevation now present in Inferior leads ST now depressed in Anterolateral leads T wave inversion now evident in Anterolateral leads Confirmed by Say Garcia ([id number]) on 10/04/2022 2:54:19 PM Referred By: REFERRED SELF Confirmed By:Say Garcia
--- NOTE | 2022-10-04 14:55 | Electrocardiogram Report ---
Test Reason : Blood Pressure : / mmHG Vent. Rate : 087 BPM Atrial Rate : 087 BPM P-R Int : 202 ms QRS Dur : 106 ms QT Int : 406 ms P-R-T Axes : 052 020 044 degrees QTc Int : 488 ms Normal sinus rhythm Possible Left atrial enlargement Nonspecific ST abnormality Abnormal ECG When compared with ECG of 04-OCT-2022 08:48, (unconfirmed) Significant changes have occurred Confirmed by Say Garcia ([id number]) on 10/04/2022 2:55:47 PM Referred By: REFERRED SELF Confirmed By:Say Garcia
[2022-10-04] MEDS: LOSARTAN POTASSIUM 25 MG TAB PO SCH (15:26)
--- NOTE | 2022-10-04 17:45 | History & Physical Report ---
Date of Service October 04, 2022 Assessment & Plan (1) Acute GA, inferior wall: Plan: Acute inferior wall GA taken emergently to the [facility] with drug-eluting stents placed in the right coronary artery. Currently on dual antiplatelet therapy continue on high intensity statin therapy increasing her dose of atorvastatin to 40. Cardiology started the patient on Toprol tartrate 25 twice daily plus losartan 25 every morning (2) Hypertension: Plan: Her previous amlodipine is discontinued in favor of metoprolol and losartan as mentioned above (3) Hyperlipidemia: Plan: Patient will have fasting lipids in the morning of the first she is on atorvastatin 40 Admission and Anticipated Discharge Date Admission Date: October 04, 2022 History of Present Illness Primary Care Provider: Argenis Fontaine MD 62-year-old female presented with chest pain in the morning heart alert was called. She described her discomfort as central chest pressure and retrosternal area with associated shortness of breath and nausea. She is given aspirin prehospital, medications include amlodipine aspirin atorvastatin patient was taken to [facility] and had 2 overlapping drug-eluting stents placed in the RCA which was 99% occluded prior to the procedure patient was transferred to the intensive care unit for further evaluation Allergies Allergy/AdvReac Type Severity Reaction Status Date / Time No Known Drug Allergies Allergy Verified 10/04/22 08:50 Home Medications Medication Instructions Recorded Confirmed Type aspirin 81 mg chewable tablet 81 mg PO QAM 11/30/18 10/04/22 History cartilage 40 mg-collagen II 10 1 tab PO QAM 11/30/18 10/04/22 History mg-boron 5 mg-hyaluronate 3.3 mg tablet ([facility]) loratadine 10 mg tablet (Claritin) 10 mg PO DAILY PRN ALLERGY RELIEF 01/29/21 10/04/22 Rx #90 tabs ascorbate calcium (vitamin C) 500 500 mg PO QAM 01/13/22 10/04/22 History mg tablet cholecalciferol (vitamin D3) 50 50 mcg PO QAM 01/14/22 10/04/22 History mcg (2,000 unit) capsule (Vitamin D3) lutein 10 mg tablet 10 mg PO QAM 01/14/22 10/04/22 History amlodipine 5 mg tablet 5 mg PO BID #180 tabs 03/05/22 10/04/22 Rx atorvastatin 10 mg tablet 10 mg PO DAILY #30 tabs 09/05/22 10/04/22 Rx Past Med/Surg History Medical History Hyperlipidemia Hypertension Kidney stones Seasonal allergies Surgical History H/O colonoscopy with polypectomy History of cataract surgery RT/LEFT History of section x 2 Family History Father Cardiac disorder Myocardial infarction Mother Hypertension Sister Hypertension Brother Skin cancer Grandmother (Paternal) Stomach cancer Other No family history of adverse response to anesthesia Denies family history of Ovarian cancer Prostate cancer Breast cancer Colorectal cancer Social History Smoking Status: Unknown if ever smoked Second Hand Exposure: No; Hx Alcohol Use: No Hx Substance Use: No Preferred Language: Vietnamese Communication Ability: Effective Visual Impairment: No Limitations Hearing Ability: Normal Presales Engineer Required: No Beliefs That Will Affect Care: None marital status: Current Living Situation: Spouse current occupational status: employed current occupation: Self-employed Feels Safe at Home: Yes Seatbelt Use: always Assistive Devices: Glasses Review of Systems Review of Systems: Mild distress and fatigue no headache, no visual changes no speech or swallowing issues Prehospital chest pain with associated symptoms now due to 12/12. EKG rechecked with improvement of previous changes Lessening shortness of breath, cough or wheezes no abdominal pain, nausea or vomiting, diarrhea or constipation no dysuria, hematuria or frequency no focal joint pain or swelling no back pain, CVA tenderness or radicular pain no bruising, bleeding or rashes no focal signs of weakness or numbness or altered sensation no complaints of anxiety or depression.. Physical Exam Physical Exam: The patient appeared well nourished and normally developed. Vital signs as documented. Head exam is normocephalic atraumatic Neck is without JVD, thyromegaly, or carotid bruits. Lungs are clear to auscultation, no focal loss of breath sounds Cardiac exam, Rhythm is regular.. No murmurs, rubs or gallops. Abdominal exam reveals normal bowel sounds, soft non tender, no masses Right wrist access site is with bandage in place good distal pulse and capillary refill Neurologic exam is alert and oriented, no focal loss of strength or sensation Skin is without bruises or rashes Psychologically is without concerns for anxiety or depression.. Results & Data Results & Data ([facility]) Vital Signs (Past 12 Hours) Vital Signs Temp Pulse Pulse Resp BP BP Pulse Ox 10/04/22 16:03 97.9 F 85 20 146/86 H 94 10/04/22 16:00 87 10/04/22 15:00 87 30 H 95 10/04/22 15:00 144/83 H 10/04/22 14:30 85 21 96 10/04/22 14:30 150/88 H 10/04/22 14:12 153/89 H 10/04/22 14:12 85 17 96 10/04/22 15:03 98.2 F 89 20 132/58 L 97 10/04/22 14:00 83 14 95 10/04/22 14:00 147/92 H 10/04/22 13:45 94 H 23 95 10/04/22 13:45 149/88 H 10/04/22 13:30 88 20 91 10/04/22 13:30 147/94 H 10/04/22 13:15 83 17 95 10/04/22 13:15 151/89 H 10/04/22 13:00 85 17 93 10/04/22 13:00 136/78 10/04/22 14:03 97.9 F 10/04/22 13:03 98.2 F 95 10/04/22 12:45 90 17 95 10/04/22 12:45 143/89 H 10/04/22 12:30 88 16 95 10/04/22 12:30 148/86 H 10/04/22 12:15 90 18 95 10/04/22 12:15 138/83 10/04/22 12:00 88 20 92 10/04/22 12:00 137/87 10/04/22 11:45 87 16 94 10/04/22 11:45 143/89 H 10/04/22 11:30 83 22 95 10/04/22 11:30 157/95 H 10/04/22 11:22 150/98 H 10/04/22 11:22 87 18 10/04/22 11:19 84 16 10/04/22 11:29 90 10/04/22 12:03 97.5 F L 10/04/22 11:33 97.5 F L 10/04/22 11:18 97.0 F L 88 20 150/98 H 94 10/04/22 11:15 97.0 F L 88 20 150/98 H 94 10/04/22 09:00 57 L 15 100 10/04/22 09:00 147/73 H 10/04/22 08:55 130/79 10/04/22 08:55 66 23 10/04/22 08:54 76 10/04/22 08:48 98.1 F 10/04/22 08:48 56 L 20 120/73 98 O2 Del Method 10/04/22 16:03 Room Air 10/04/22 16:00 10/04/22 15:00 10/04/22 15:00 10/04/22 14:30 10/04/22 14:30 10/04/22 14:12 10/04/22 14:12 10/04/22 15:03 Room Air 10/04/22 14:00 10/04/22 14:00 10/04/22 13:45 10/04/22 13:45 10/04/22 13:30 10/04/22 13:30 10/04/22 13:15 10/04/22 13:15 10/04/22 13:00 10/04/22 13:00 10/04/22 14:03 10/04/22 13:03 Room Air 10/04/22 12:45 10/04/22 12:45 10/04/22 12:30 10/04/22 12:30 10/04/22 12:15 10/04/22 12:15 10/04/22 12:00 10/04/22 12:00 10/04/22 11:45 10/04/22 11:45 10/04/22 11:30 10/04/22 11:30 10/04/22 11:22 10/04/22 11:22 10/04/22 11:19 10/04/22 11:29 10/04/22 12:03 10/04/22 11:33 10/04/22 11:18 Room Air 10/04/22 11:15 Room Air 10/04/22 09:00 Room Air 10/04/22 09:00 Room Air 10/04/22 08:55 Room Air 10/04/22 08:55 Room Air 10/04/22 08:54 Room Air 10/04/22 08:48 10/04/22 08:48 Room Air ECG Additional Comments: EKG around 1800 hrs. with complaints of 3/10 chest pain shows sinus rhythm inferior T wave inversions but improved from where her ST elevations were Code Status & VTE Plan VTE Prophylaxis Plan VTE Prophylaxis will be ordered: Yes PG Care Time/CCT Total # of Minutes Spent Total Time Spent with Patient: Total time spent is greater than 50% in coordination of care (as documented) at patient's floor/unit and/or counseling patient: Coding Level of Care Code 50839 Initial Inpt Care Lvl 2 Diagnoses Acute GA, inferior wall I21.19 Hypertension I10 Hyperlipidemia E78.5
[2022-10-04] MEDS: MoRPHine SULFATE 2 MG/ML CARP IV PRN ×2 (18:10→22:10)
[2022-10-04] MEDS: DOCUSATE SODIUM 100 MG CAP PO SCH (19:21)
[2022-10-04] MEDS: METOPROLOL TARTRATE 25 MG TAB PO SCH (19:22)
[2022-10-04] MEDS: TICAGRELOR 90 MG TAB PO SCH (19:22)
[2022-10-05] MEDS: ICU Protocol for HYPERglycemia SCH ×3 (00:47→13:06)
[2022-10-05 05:59] LABS: Basophils # (auto) 0.04 K/uL (0-0.2); Basophils % (auto) 0.3 %; Eosinophils # (auto) 0.02 K/uL (0-0.50); Eosinophils % (auto) 0.1 %; Hematocrit (blood only) 35.9 % (34.1-44.9); Hemoglobin 12.2 g/dl (12.0-16.0); Immature Granulocytes # (auto) 0.06 K/uL (0.00-0.02); Immature Granulocytes % (auto) 0.4 %; Lymphocytes # (auto) 3.03 K/uL (1.2-3.4); Lymphocytes % (auto) 19.6 %; Mean Corpuscular Hemoglobin 29.3 pg (25.0-34.0); Mean Corpuscular Volume 86.3 fL (80.0-100.0); Mean Platelet Volume 8.7 fL (9.4-12.3); Monocytes # (auto) 0.74 K/uL (0.24-0.82); Monocytes % (auto) 4.8 %; Neutrophils # (auto) 11.59 K/uL (1.4-6.5); Neutrophils % (auto) 74.8 %; Platelet Count 391 K/uL (130-400); RDW Coefficient of Variation 13.1 % (11.5-14.5); RDW Standard Deviation 40.7 fL (36.4-46.3); Red Blood Count 4.16 M/uL (3.93-5.22); White Blood Count 15.48 K/ul (4.8-10.8)
[2022-10-05 06:28] LABS: Chol HDL Ratio 4.7 (0-5)
[2022-10-05 07:37] LABS: BUN Creatinine Ratio 19.4 (10-20); Calcium 9.3 mg/dl (8.5-10.1); Creatinine Clr Calc Pharmacy 75.5 ml/min; Est GFR (African American) 110.4 ml/min; Est GFR (Non-African American) 95.3 ml/min; Potassium 4.8 mmol/L (3.5-5.1)
[2022-10-05] MEDS: ATORVASTATIN 40 MG TAB PO SCH (07:54)
[2022-10-05] MEDS: DOCUSATE SODIUM 100 MG CAP PO SCH ×2 (07:54→20:22)
[2022-10-05] MEDS: METOPROLOL TARTRATE 25 MG TAB PO SCH ×2 (07:54→20:22)
[2022-10-05] MEDS: PANTOprazole 40 MG TAB PO SCH (07:54)
[2022-10-05] MEDS: LOSARTAN POTASSIUM 25 MG TAB PO SCH (07:54)
[2022-10-05] MEDS: ASPIRIN 81 MG ECTAB PO SCH (07:55)
[2022-10-05] MEDS: TICAGRELOR 90 MG TAB PO SCH ×2 (07:55→20:22)
--- NOTE | 2022-10-05 10:05 | Electrocardiogram Report ---
Test Reason : Blood Pressure : / mmHG Vent. Rate : 088 BPM Atrial Rate : 088 BPM P-R Int : 196 ms QRS Dur : 102 ms QT Int : 354 ms P-R-T Axes : 049 -20 009 degrees QTc Int : 428 ms Sinus rhythm Possible Left atrial enlargement Nonspecific T wave abnormality Abnormal ECG When compared with ECG of 04-OCT-2022 11:43, Nonspecific T wave abnormality now evident in Lateral leads QT has shortened Confirmed by Jordon Lobo ([id number]) on 10/05/2022 10:05:37 AM Referred By: REFERRED SELF Confirmed By:Jan Lobo
--- NOTE | 2022-10-05 10:35 | Critical Care Progress Note ---
Date of Service October 05, 2022 Assessment & Plan (1) Acute DE, inferior wall: Plan: Impression: 62-year-old female patient presents to the ICU status post heart catheterization. Neuro - CAM ICU: Negative Cardiac - S/P Cardiac Cath -Nursing staff reported 2 drug-eluting stents -Dual antiplatelet therapy -Awaiting echo Respiratory - - Continuous monitoring pulse ox GI - Heart healthy diet -Hypertriglyceridemia and hypercholesterolemia -High intensity statin RENAL/LYTES - Mild hyponatremia -Hypokalemia: Resolved - Strict I's and O's ENDO - - hemoglobin A1c reviewed from prior admission HEME - H&H stable, monitor routine CBC ID - No negation for infectious process at this time LINES/IV ACCESS - Peripheral IVs DVT PROPHYLAXIS - Ambulatory Stable for downgrade from the ICU, critical care will sign off Admission and Anticipated Discharge Date Admission Date: October 04, 2022 Subjective Chest pain-free. Reports mild difficulty breathing. Patient's children will be coming into town the next couple of days. Physical Exam Physical Exam: General: Alert. nontoxic. Skin: Warm, dry, Head: Atraumatic Ears, nose, mouth and throat: airway patent Cardiovascular: Normal peripheral perfusion Respiratory: no respiratory distress Gastrointestinal: Non distended Musculoskeletal: No deformity Results & Data Results & Data ([facility]) Vital Signs (Past 12 Hours) Vital Signs Temp Pulse Resp BP Pulse Ox O2 Del Method 10/05/22 08:00 73 19 96 10/05/22 08:00 124/78 10/05/22 07:00 75 20 94 10/05/22 07:00 135/82 10/05/22 08:00 Room Air 10/05/22 08:00 74 10/05/22 07:13 37.0 C 10/05/22 05:45 71 21 95 10/05/22 05:30 74 22 94 10/05/22 05:20 74 24 92 10/05/22 05:10 70 18 94 10/05/22 05:00 69 19 92 10/05/22 05:00 120/81 10/05/22 04:50 36.5 C 73 22 93 10/05/22 04:40 73 19 93 10/05/22 04:30 71 16 93 10/05/22 04:20 73 18 93 10/05/22 04:10 75 17 94 10/05/22 04:00 76 16 92 10/05/22 04:00 123/70 10/05/22 03:50 79 21 92 10/05/22 03:40 75 22 95 10/05/22 03:30 79 18 93 10/05/22 03:20 78 17 92 10/05/22 03:10 79 18 93 10/05/22 03:00 75 16 91 10/05/22 03:00 145/86 H 10/05/22 02:50 78 15 92 10/05/22 02:40 78 16 90 10/05/22 02:30 75 39 H 95 10/05/22 02:20 83 25 H 95 10/05/22 02:10 83 31 H 95 10/05/22 02:00 82 34 H 93 10/05/22 02:00 138/88 10/05/22 01:50 82 19 95 10/05/22 01:40 89 22 95 10/05/22 01:30 85 25 H 95 10/05/22 01:20 85 19 95 10/05/22 01:10 82 23 93 10/05/22 01:00 87 15 94 10/05/22 01:00 155/103 H 10/05/22 00:50 86 27 H 90 10/05/22 00:40 88 17 92 10/05/22 00:30 89 20 93 10/05/22 00:20 89 20 93 10/05/22 00:10 90 17 92 10/05/22 00:00 88 18 93 10/05/22 00:00 147/83 H 10/04/22 23:50 86 23 94 10/04/22 23:40 90 17 92 10/04/22 23:30 91 H 17 93 10/04/22 23:20 92 H 19 92 10/04/22 23:10 86 17 93 10/04/22 23:00 91 H 16 92 10/04/22 23:00 140/83 10/04/22 22:50 91 H 18 92 10/04/22 22:40 90 19 90 10/04/22 23:54 89 Critical Care Results & Data Vital Signs (Past 12 Hours) Vital Signs Temp Pulse Resp BP Pulse Ox O2 Del Method 10/05/22 08:00 73 19 96 10/05/22 08:00 124/78 10/05/22 07:00 75 20 94 10/05/22 07:00 135/82 10/05/22 08:00 Room Air 10/05/22 08:00 74 10/05/22 07:13 37.0 C 10/05/22 05:45 71 21 95 10/05/22 05:30 74 22 94 10/05/22 05:20 74 24 92 10/05/22 05:10 70 18 94 10/05/22 05:00 69 19 92 10/05/22 05:00 120/81 10/05/22 04:50 36.5 C 73 22 93 10/05/22 04:40 73 19 93 10/05/22 04:30 71 16 93 10/05/22 04:20 73 18 93 10/05/22 04:10 75 17 94 10/05/22 04:00 76 16 92 10/05/22 04:00 123/70 10/05/22 03:50 79 21 92 10/05/22 03:40 75 22 95 10/05/22 03:30 79 18 93 10/05/22 03:20 78 17 92 10/05/22 03:10 79 18 93 10/05/22 03:00 75 16 91 10/05/22 03:00 145/86 H 10/05/22 02:50 78 15 92 10/05/22 02:40 78 16 90 10/05/22 02:30 75 39 H 95 10/05/22 02:20 83 25 H 95 10/05/22 02:10 83 31 H 95 10/05/22 02:00 82 34 H 93 10/05/22 02:00 138/88 10/05/22 01:50 82 19 95 10/05/22 01:40 89 22 95 10/05/22 01:30 85 25 H 95 10/05/22 01:20 85 19 95 10/05/22 01:10 82 23 93 10/05/22 01:00 87 15 94 10/05/22 01:00 155/103 H 10/05/22 00:50 86 27 H 90 10/05/22 00:40 88 17 92 10/05/22 00:30 89 20 93 10/05/22 00:20 89 20 93 10/05/22 00:10 90 17 92 10/05/22 00:00 88 18 93 10/05/22 00:00 147/83 H 10/04/22 23:50 86 23 94 10/04/22 23:40 90 17 92 10/04/22 23:30 91 H 17 93 10/04/22 23:20 92 H 19 92 10/04/22 23:10 86 17 93 10/04/22 23:00 91 H 16 92 10/04/22 23:00 140/83 10/04/22 22:50 91 H 18 92 10/04/22 22:40 90 19 90 10/04/22 23:54 89 Lab & Micro Results (Past 24 Hours) RBC 4.16 M/uL (3.93-5.22) 10/05/22 WBC 15.48 K/ul (4.8-10.8) H 10/05/22 Hgb 12.2 g/dl (12.0-16.0) 10/05/22 Hct 35.9 % (34.1-44.9) 10/05/22 MCV 86.3 fL (80.0-100.0) 10/05/22 MCH 29.3 pg (25.0-34.0) 10/05/22 MCHC 34.0 g/dL (32.0-36.0) 10/05/22 RDW Standard Deviation 40.7 fL (36.4-46.3) 10/05/22 RDW Coefficient of Variation 13.1 % (11.5-14.5) 10/05/22 Plt Count 391 K/uL (130-400) 10/05/22 MPV 8.7 fL (9.4-12.3) L 10/05/22 Neutrophils (%) (Auto) 74.8 % 10/05/22 Lymphocytes (%) (Auto) 19.6 % 10/05/22 Monocytes # (Auto) 0.74 K/uL (0.24-0.82) 10/05/22 Eosinophils # (Auto) 0.02 K/uL (0-0.50) 10/05/22 Immature Granulocyte % (Auto) 0.4 % 10/05/22 Neutrophils # (Auto) 11.59 K/uL (1.4-6.5) H 10/05/22 Lymphocytes # (Auto) 3.03 K/uL (1.2-3.4) 10/05/22 Monocytes # (Auto) 0.74 K/uL (0.24-0.82) 10/05/22 Eosinophils # (Auto) 0.02 K/uL (0-0.50) 10/05/22 Basophils # (Auto) 0.04 K/uL (0-0.2) 10/05/22 Immature Granulocyte # (Auto) 0.06 K/uL (0.00-0.02) H 10/05 Na 133 mmol/L (136-145) L 10/05/22 K 4.8 mmol/L (3.5-5.1) 10/05/22 Cl 103 mmol/L (98-107) 10/05/22 CO2 22 mmol/L (21-32) 10/05/22 Anion Gap 8 (3-11) 10/05/22 BUN 12 mg/dl (6-23) 10/05/22 Creatinine 0.62 mg/dl (0.6-1.2) 10/05/22 Estimated GFR ( Amer) 110.4 ml/min 10/05/22 Estimated GFR (Non-Af Amer) 95.3 ml/min 10/05/22 BUN/Creatinine Ratio 19.4 (10-20) 10/05/22 Glu 134 mg/dl (70-99(Fasting)) H 10/05/22 Ca 9.3 mg/dl (8.5-10.1) 10/05/22 Mg 2.0 mg/dl (1.7-2.4) 10/05/22 05:48 Calcium Level 9.3 mg/dl (8.5-10.1) 10/05/22 05:48 I & O Totals 24 Hours 10/04/22 10/05/22 10/06/22 06:59 06:59 06:59 Intake Total 963.75 / 963.75 Output Total 1750 / 1750 700 / 700 Balance -786.25 / -786.25 -700 / -700 Cumulative 10/04/22 08:35 thru 10/05/22 08:15 Intake Total 963.75 Output Total 2450 Balance -1486.25 RT Ventilator Mngmt (Last Documented) Ventilator Ordered Settings Respiratory Rate 19 10/05/22 08:00 Ventilator - PT Measurements Respiratory Rate 19 Coding Level of Care Code 02611 Subseq Hosp Care Lvl 1 Diagnoses Acute DE, inferior wall I21.19
--- NOTE | 2022-10-05 10:49 | XCELERA ---
[id number] \\[id number]_[id number]
--- NOTE | 2022-10-05 13:38 | Cardiology Progress Note ---
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 High intensity statin therapy with a atorvastatin 40 mg daily. Untreated LDL was 138. Therefore, target LDL with treatment will be 70. Prior untreated LDL was 160 making target 80. Somewhere between these 2 will be adequate for aggressive LDL reduction as recommended by ACC/AHA. (2) Acute [place], inferior wall: Plan: Echocardiogram demonstrates wall motion abnormalities consistent with RCA occlusion. She is had percutaneous revascularization with good results. Only mildly diminished EF still within the low normal range. Anticipate that she will have full recovery of wall motion and EF with revascularization. Her heart rate and blood pressure are currently at target. She will continue dual antiplatelet therapy with aspirin and Brilinta to complete 1 to 2 years therapy. Guideline directed medical therapy for secondary prevention of coronary disease has been initiated. Metoprolol tartrate 25 mg p.o. twice daily, statin, losartan and low-dose aspirin. No changes at this time. (3) Impaired fasting glucose: Plan: This certainly contributes to her risk factors. Treatment per internal medicine. (4) Hypertension: Plan: Blood pressure is well controlled. Continue metoprolol tartrate 25 mg p.o. twice daily and losartan 25 mg daily. As an outpatient she was also on amlodipine 5 mg p.o. twice daily but this has no cardiac benefit and we will dis continue it at this time in favor of the above medications which provide myocardial and kidney protection. Plan She is appropriate for transfer to stepdown telemetry unit at this time. Assuming she does not develop any further acute issues then she will likely be appropriate for discharge tomorrow afternoon. I will need to see her in the cardiology office for follow-up within 1 to 3 weeks. I am not available tomorrow to see the patient. If there are any questions or concerns the general cardiologists (Dr. Lobo) is familiar with the patient and may be contacted. Admission and Anticipated Discharge Date Admission Date: October 04, 2022 Subjective Patient feeling better today. No chest pain. Mild shortness of breath. No events overnight. Tolerating her medications. Echocardiogram was completed and I have read. This demonstrated low normal EF, inferior/posterior wall motion abnormalities but no significant valvular problems. She has no other complaints today. Review of Systems Review of Systems: Negative except as per HPI Physical Exam Constitutional: WD/WN, vitals as above Neck: No JVD Respiratory: Clear to auscultation bilaterally. No wheezing or rhonchi. Bibasilar crackles. Cardiovascular: Regular rate and rhythm. S4 gallop. No rubs or murmurs appreciated. Musculoskeletal: no cyanosis or clubbing, extremities motor strength 5/5 (No edema. Radial site is clean dry and intact. Normal distal perfusion) Neurologic: Cognition is intact. Speech is fluent. No focal deficits. No tremor. Psychiatric: A+Ox3, euthymic affect Results & Data ([facility]) Vital Signs (Past 12 Hours) Vital Signs Temp Pulse Resp BP Pulse Ox O2 Del Method 10/05/22 13:00 73 21 93 10/05/22 13:00 97/67 L 10/05/22 12:00 73 22 96 10/05/22 12:00 117/73 10/05/22 11:00 71 27 H 94 10/05/22 11:00 118/72 10/05/22 10:00 72 28 H 96 10/05/22 10:00 124/73 10/05/22 09:00 69 18 93 10/05/22 09:00 125/70 10/05/22 08:00 73 19 96 10/05/22 08:00 124/78 10/05/22 07:00 75 20 94 10/05/22 07:00 135/82 10/05/22 08:00 Room Air 10/05/22 08:00 74 10/05/22 07:13 37.0 C 10/05/22 05:45 71 21 95 10/05/22 05:30 74 22 94 10/05/22 05:20 74 24 92 10/05/22 05:10 70 18 94 10/05/22 05:00 69 19 92 10/05/22 05:00 120/81 10/05/22 04:50 36.5 C 73 22 93 10/05/22 04:40 73 19 93 10/05/22 04:30 71 16 93 10/05/22 04:20 73 18 93 10/05/22 04:10 75 17 94 10/05/22 04:00 76 16 92 10/05/22 04:00 123/70 10/05/22 03:50 79 21 92 10/05/22 03:40 75 22 95 10/05/22 03:30 79 18 93 10/05/22 03:20 78 17 92 10/05/22 03:10 79 18 93 10/05/22 03:00 75 16 91 10/05/22 03:00 145/86 H 10/05/22 02:50 78 15 92 10/05/22 02:40 78 16 90 10/05/22 02:30 75 39 H 95 10/05/22 02:20 83 25 H 95 10/05/22 02:10 83 31 H 95 10/05/22 02:00 82 34 H 93 10/05/22 02:00 138/88 10/05/22 01:50 82 19 95 10/05/22 01:40 89 22 95 10/05/22 01:30 85 25 H 95 PG Care Time/CCT Total # of Minutes Spent Total Time Spent with Patient: Total time spent is greater than 50% in coordination of care (as documented) at patient's floor/unit and/or counseling patient: [place] [address] Subseq Hosp Care Lvl 2 Patient Type Established Diagnoses Atherogenic dyslipidemia E78.5 Acute TX, inferior wall I21.19 Impaired fasting glucose R73.01 Hypertension I10
--- NOTE | 2022-10-05 14:58 | Hospitalist Progress Note ---
Date of Service October 05, 2022 Assessment & Plan (1) Acute IN, inferior wall: Plan: Acute inferior wall IN taken emergently to [facility] with drug-eluting stents placed in the right coronary artery , currently on aspirin and Brilinta, increased dose of atorvastatin to 40 mg, patient had LDL of 138, the goal is to have LDL of 70 Continue Toprol tartrate 25 twice daily plus losartan 25 (2) Hypertension: Plan: Currently on Toprol and losartan, blood pressure is fairly controlled, usually in the low side schedule pressure 107 (3) Hyperlipidemia: Plan: The plan as mentioned above Admission and Anticipated Discharge Date Admission Date: October 04, 2022 Subjective Chest pain feels better, echocardiogram showed preserved ejection fraction, echocardiogram also demonstrated inferior/posterior wall motion abnormalities discussed with cardiology, patient can be discharged within the next 24 hours, I will downgrade the patient to [facility] Review of Systems Review of Systems: Mild distress and fatigue no headache, no visual changes no speech or swallowing issues Prehospital chest pain with associated symptoms now due to 12/12. EKG rechecked with improvement of previous changes Lessening shortness of breath, cough or wheezes no abdominal pain, nausea or vomiting, diarrhea or constipation no dysuria, hematuria or frequency no focal joint pain or swelling no back pain, CVA tenderness or radicular pain no bruising, bleeding or rashes no focal signs of weakness or numbness or altered sensation no complaints of anxiety or depression.. Physical Exam Physical Exam: General: Alert. nontoxic. Skin: Warm, dry, Head: Atraumatic Ears, nose, mouth and throat: airway patent Cardiovascular: Normal peripheral perfusion Respiratory: no respiratory distress Gastrointestinal: Non distended Musculoskeletal: No deformity Constitutional: WD/WN, vitals as above Eyes: PERRL, conjunctivae normal, anicteric sclerae ENMT: external ear and nose normal, oropharynx normal (Oral mucosa is dry) Respiratory: normal respiratory effort, lungs clear to auscultation (No wheezing, rhonchi, or rales.) Cardiovascular: RRR, no murmur, no edema (No rubs. S4 gallop. Only trace right lower extremity edema.) Musculoskeletal: no cyanosis or clubbing, extremities motor strength 5/5 (No edema. Radial site is clean dry and intact. Normal distal perfusion) Psychiatric: A+Ox3, euthymic affect Results & Data Results & Data ([facility]) Vital Signs (Past 12 Hours) Vital Signs Temp Pulse Resp BP Pulse Ox O2 Del Method 10/05/22 14:01 107/74 10/05/22 14:01 79 21 95 10/05/22 14:00 75 21 96 10/05/22 13:00 73 21 93 10/05/22 13:00 97/67 L 10/05/22 12:00 73 22 96 10/05/22 12:00 117/73 10/05/22 11:00 71 27 H 94 10/05/22 11:00 118/72 10/05/22 10:00 72 28 H 96 10/05/22 10:00 124/73 10/05/22 09:00 69 18 93 10/05/22 09:00 125/70 10/05/22 08:00 73 19 96 10/05/22 08:00 124/78 10/05/22 07:00 75 20 94 10/05/22 07:00 135/82 10/05/22 08:00 Room Air 10/05/22 08:00 74 10/05/22 07:13 37.0 C 10/05/22 05:45 71 21 95 10/05/22 05:30 74 22 94 10/05/22 05:20 74 24 92 10/05/22 05:10 70 18 94 10/05/22 05:00 69 19 92 10/05/22 05:00 120/81 10/05/22 04:50 36.5 C 73 22 93 10/05/22 04:40 73 19 93 10/05/22 04:30 71 16 93 10/05/22 04:20 73 18 93 10/05/22 04:10 75 17 94 10/05/22 04:00 76 16 92 10/05/22 04:00 123/70 10/05/22 03:50 79 21 92 10/05/22 03:40 75 22 95 10/05/22 03:30 79 18 93 10/05/22 03:20 78 17 92 10/05/22 03:10 79 18 93 10/05/22 03:00 75 16 91 10/05/22 03:00 145/86 H 10/05/22 02:50 78 15 92 PG Care Time/CCT Total # of Minutes Spent Total Time Spent with Patient: Total time spent is greater than 50% in coordination of care (as documented) at patient's floor/unit and/or counseling patient: Coding Level of Care Code 38709 Subseq Hosp Care Lvl 2 Diagnoses Acute IN, inferior wall I21.19 Hypertension I10 Hyperlipidemia E78.5
[2022-10-06 07:03] LABS: Basophils # (auto) 0.05 K/uL (0-0.2); Basophils % (auto) 0.5 %; Eosinophils # (auto) 0.08 K/uL (0-0.50); Eosinophils % (auto) 0.8 %; Hematocrit (blood only) 37.2 % (34.1-44.9); Hemoglobin 12.3 g/dl (12.0-16.0); Immature Granulocytes # (auto) 0.03 K/uL (0.00-0.02); Immature Granulocytes % (auto) 0.3 %; Lymphocytes # (auto) 2.49 K/uL (1.2-3.4); Lymphocytes % (auto) 24.7 %; Mean Corpuscular Hemoglobin 28.9 pg (25.0-34.0); Mean Corpuscular Hgb Conc 33.1 g/dL (32.0-36.0); Mean Corpuscular Volume 87.3 fL (80.0-100.0); Mean Platelet Volume 8.9 fL (9.4-12.3); Monocytes # (auto) 0.78 K/uL (0.24-0.82); Monocytes % (auto) 7.7 %; Neutrophils # (auto) 6.67 K/uL (1.4-6.5); Platelet Count 352 K/uL (130-400); RDW Coefficient of Variation 13.2 % (11.5-14.5); RDW Standard Deviation 41.2 fL (36.4-46.3); Red Blood Count 4.26 M/uL (3.93-5.22)
[2022-10-06] MEDS: ATORVASTATIN 40 MG TAB PO SCH (08:07)
[2022-10-06] MEDS: TICAGRELOR 90 MG TAB PO SCH (08:07)
[2022-10-06] MEDS: LOSARTAN POTASSIUM 25 MG TAB PO SCH (08:07)
[2022-10-06] MEDS: ASPIRIN 81 MG ECTAB PO SCH (08:07)
[2022-10-06] MEDS: METOPROLOL TARTRATE 25 MG TAB PO SCH (08:07)
[2022-10-06] MEDS: PANTOprazole 40 MG TAB PO SCH (08:07)
[2022-10-06] MEDS: DOCUSATE SODIUM 100 MG CAP PO SCH (08:07)
--- NOTE | 2022-10-06 10:09 | Cardiology Progress Note ---
Date of Service October 06, 2022 Assessment & Plan (1) Acute MT, inferior wall: Plan: -- post PPI with 3 JAY to RCA -- minimal non-culprit disease. 2. Preserved LV function - EF 50%, inferior wall motion 3. Dyslipidemia 4. Hypertension Stable from a cardiac standpoint. Ok for discharge later today. -- continue DAPT with ASA/Ticagrelor -- continue current metoprolol 25mg BID, losartan 25mg. Discontinue prior home amlodipine. -- continue current atorvastatin -- home on PPI Follow-up with Dr. Avery in 1-2 weeks. Further discussion cardiac rehab at that time. Admission and Anticipated Discharge Date Admission Date: October 04, 2022 Subjective Feeling well this morning. No further chest pain. Breathing easier, up walking to bathroom. Telemetry unremarkable. Review of Systems Review of Systems: All systems reviewed & are unremarkable except as noted in HPI & below Physical Exam Physical Exam: General: Comfortable HEENT: Sclerae anicteric Lungs: Clear to auscultation bilaterall Cardiac: Regular rate and rhythm, no murmurs. Vascular: 2+ radial, DP pulses. 2+ [employer] pulses, no erythema or hematoma. Abdomen: Soft, nontender Extremities: Well perfused, no peripheral edema Neuro: Nonfocal Psych: Alert orient x3, normal affect and mood Results & Data ([facility]) Vital Signs (Past 12 Hours) Vital Signs Temp Pulse Pulse Pulse Resp BP BP 10/06/22 07:53 71 18 116/72 10/06/22 07:00 10/06/22 06:59 67 10/06/22 03:00 97.9 F 87 16 115/73 10/05/22 22:50 99.1 F 76 16 104/64 10/05/22 22:03 81 10/05/22 22:15 Pulse Ox O2 Del Method 10/06/22 07:53 94 Room Air 10/06/22 07:00 Room Air 10/06/22 06:59 10/06/22 03:00 96 Room Air 10/05/22 22:50 98 Room Air 10/05/22 22:03 10/05/22 22:15 Room Air PG Care Time/CCT Total # of Minutes Spent Total Time Spent with Patient: Total time spent is greater than 50% in coordination of care (as documented) at patient's floor/unit and/or counseling patient: Coding Level of Care Code 24586 Subseq Hosp Care Lvl 3 Diagnoses Acute MT, inferior wall I21.19
--- NOTE | 2022-11-04 18:07 | Discharge Summary ---
Date of Service November 04, 2022 Admission HPI Per Admitting Provider 62-year-old female presented with chest pain in the morning heart alert was called. She described her discomfort as central chest pressure and retrosternal area with associated shortness of breath and nausea. She is given aspirin prehospital, medications include amlodipine aspirin atorvastatin patient was taken to [facility] and had 2 overlapping drug-eluting stents placed in the RCA which was 99% occluded prior to the procedure patient was transferred to the intensive care unit for further evaluation Principal Diagnosis Acute inferior ND, status post cardiac cath status post 2 stent placement in the RCA Discharge Exam General: Alert. nontoxic. Skin: Warm, dry, Head: Atraumatic Ears, nose, mouth and throat: airway patent Cardiovascular: Normal peripheral perfusion Respiratory: no respiratory distress Gastrointestinal: Non distended Musculoskeletal: No deformity Constitutional WD/WN, vitals as above Eyes PERRL, conjunctivae normal, anicteric sclerae ENMT external ear and nose normal, oropharynx normal (Oral mucosa is dry) Respiratory normal respiratory effort, lungs clear to auscultation (No wheezing, rhonchi, or rales.) Cardiovascular RRR, no murmur, no edema (No rubs. S4 gallop. Only trace right lower extremity edema.) Musculoskeletal no cyanosis or clubbing, extremities motor strength 5/5 (No edema. Radial site is clean dry and intact. Normal distal perfusion) Psychiatric A+Ox3, euthymic affect Discharge Data Allergies Allergy/AdvReac Type Severity Reaction Status Date / Time No Known Drug Allergies Allergy Verified 10/22/22 13:39 Consultations 10/04/22 11:18 Consult Internal Medicine Routine 10/04/22 11:29 Consult Christian Science Practitioner Routine 10/06/22 10:09 Consult Cardiac Rehabilitation Routine Procedures Performed Operation Date: 10/04/22 09:00 Actual Procedures p Aspiration/PCI w/JAY for Stemi - Gualberto Avery MD, PhD p Cath, Left with Cors and Vent - Gualberto Avery MD, PhD s Placement Art Occlusive Device - Gualberto Avery MD, PhD s Cineradiography w/Routine Exam - Gualberto Avery MD, PhD p Drug Eluting Stent SGl Vessel - Gualberto Avery MD, PhD Ordered Studies 10/04/22 08:53 CL Cath Imgs for PACS use only Stat Hospital Course (1) Acute ND, inferior wall: Acute inferior wall ND taken emergently to the [facility] with drug-eluting stents placed in the right coronary artery , currently on aspirin and Brilinta, increased dose of atorvastatin to 40 mg, patient had LDL of 138, the goal is to have LDL of 70 Continue Toprol tartrate 25 twice daily plus losartan 25 patient was discharged on dual antiplatelet agent, beta-varsha and statins, to follow-up with cardiology (2) Hypertension: Currently on Toprol and losartan, blood pressure is fairly controlled, usually in the low side schedule pressure 107 (3) Hyperlipidemia: The plan as mentioned above Total Time Total Time Spent Total Time Spent (In Minutes): 45 mins Discharge Plan Discharge Items Patient Disposition: Home - Self-Care Reason For Visit: STEMI Discharge Diagnosis: Inerior wall ND Activity: Per Instructions section Lifting: No more than 10 pounds and Wait until after follow-up appointment Bathing: No limitations Sexual Activity: Wait until after follow-up appointment Exercise/Sports: Wait until after follow-up appointment Driving/Machine Use: Resume 3 days after discharge Weightbearing: Full weightbearing Non-emergency contact: Primary Care Provider and Aerobics Instructor Call non-emergency contact if: you have any medication questions and your symptoms worsen Follow-up/Referrals: Gualberto Avery MD, PhD [Physician] - (f/u one week) Argenis Fontaine MD [Primary Care Provider] - 10/09/22 Diet: Heart Healthy [facility] Attending Provider Instructions: ACTIVITY RECOMMENDATIONS: It is common to feel weak and fatigue for a few days. * Do not drive or operate any motorized equipment for the next 2 days. * Limit stair usage (2 or 3 trips a day only) for the next three days. * Do not lift anything heavier than 10 pounds for the next three days. * Do not engage in vigorous exercise or any sports for the next five days. * You may shower the day after your procedure, but do not immerse the area for three days. Cleanse the site gently with soap and water. SPECIAL CARE INSTRUCTIONS: * You may replace the pressure dressing or band-aid the morning after the procedure. * After your procedure, it is normal to have a small bruise or small lump at the site. Examine your site daily for any change in the bruise or lump, redness, swelling, drainage or numbness. Notify your doctor if any change. BLEEDING: * If there is a small amount of bleeding at the site, lie down and apply firm pressure with a clean cloth for ten minutes. When the bleeding stops, lie quietly keeping the procedure limb straight for six hours. Notify your doctor as soon as possible. * If the bleeding does not stop after ten minutes or if there is a large amount of bleeding or spurting, call 911 immediately. Continue to lie down and hold firm pressure until help arrives. SKIN IRRITATION: * You may experience some redness and/or swelling in the area where radiation was administered. If any skin irritation occurs, please contact your family physician. FOLLOW UP VISIT: Follow-up with Dr. Avery in 1-2 weeks. Pending Studies at Discharge: No Stand-Alone Forms: My [facility] Objective Logistics, Smoking Cessation, Webflow ergency Department, Important Visit Information Medications and DC Order Prescriptions: Continued ascorbate calcium (vitamin C) 500 mg tablet 500 mg PO QAM [employer] 40-10-5-3.3 mg Tablet 1 tab PO QAM cholecalciferol (vitamin D3) [Vitamin D3] 50 mcg (2,000 unit) Capsule 50 mcg PO QAM lutein 10 mg tablet 10 mg PO QAM Rx Instructions: give with meal/snack Discontinued amlodipine 5 mg tablet 5 mg PO BID Qty: 180 3RF loratadine [Claritin] 10 mg tablet 10 mg PO DAILY PRN (Reason: ALLERGY RELIEF) Qty: 90 1RF No Action pantoprazole 40 mg tablet,delayed release (DR/EC) 40 mg PO QAM Qty: 90 1RF atorvastatin 40 mg tablet 40 mg PO QAM 30 Days Qty: 30 11RF aspirin 81 mg tablet,chewable 81 mg PO QAM Qty: 90 3RF losartan 25 mg tablet 25 mg PO QAM Qty: 30 11RF metoprolol tartrate 25 mg tablet 25 mg PO BID Qty: 60 11RF Brilinta 90 mg tablet 90 mg PO BID Qty: 60 11RF Discharge Orders: Discharge Order (Routine); Ordered 10/06/22 Ordered By: Valdemar Guillen/Other Patient Handouts: All About Cholesterol Control, Cholesterol Lifestyle Changes, Cardiac Rehab Getting Started, Medicines for Heart Disease, Heart Attack: Leaving the Hospital, Eating Heart-Healthy Foods Admission Data Admit Date/Time: 10/04/22 11:29 Attending Provider: Khai Rasheed Admit Provider: Gualberto Avery Primary Care Provider: Argenis Fontaine V. Other Providers: Hardy Muller ; Boyd Chacon ; Rohit Glasgow ; Lester Jean-Baptiste ; Eleno Jarrett ; Benito Carranza ; Jude Dixon ; Benoit Rhodes ; Amadou Dumont ; Alee Bennett Other Interventions: Discharge Summary Assessment (RN) Last Done: 10/06/22 12:23 Coding Level of Care Code HOSP INP/OBS DISCH >30 MIN Diagnoses Acute ND, inferior wall I21.19 Hypertension I10 Hyperlipidemia E78.5
== END 2022-10-06 12:48 | disposition home or self-care (01) | DRG 247 ==
LOC: ED 08:41 → CC 09:11 → 1E 09:11 → SUATTDRO 11:29 → 1E 11:29 → 2N 10-05 13:28

== ENCOUNTER 2022-10-07 16:27 | Inpatient (IN) ==
--- NOTE | 2022-10-07 17:18 | Emergency Department Note ---
History of Present Illness General Chief complaint: Arm Pain Stated complaint: NUMBNESS IN LEFT ARM Time Seen by Provider: 10/07/22 17:13 Source: patient, family (Son who is at the bedside), RN notes reviewed and old records reviewed Mode of arrival: ambulatory Limitations: no limitations History of Present Illness Maximum Pain Intensity: 4 This patient comes in complaining of tingling and numbness in her left arm that started about an hour ago. She feels fine otherwise. She was discharged yesterday after having a heart attack and stent she has no chest pain shortness of breath lightheadedness or dizziness nausea vomiting no change in vision no numbness weakness of face or leg. They did cath on her but did not use the left arm. She has had no pain or swelling in the left arm Home Medications Medication Instructions Recorded Confirmed Type aspirin 81 mg chewable tablet 81 mg PO QAM 11/30/18 10/07/22 History cartilage 40 mg-collagen II 10 1 tab PO QAM 11/30/18 10/07/22 History mg-boron 5 mg-hyaluronate 3.3 mg tablet ([email or web address]) ascorbate calcium (vitamin C) 500 500 mg PO QAM 01/13/22 10/07/22 History mg tablet cholecalciferol (vitamin D3) 50 50 mcg PO QAM 01/14/22 10/07/22 History mcg (2,000 unit) capsule (Vitamin D3) lutein 10 mg tablet 10 mg PO QAM 01/14/22 10/07/22 History atorvastatin 10 mg tablet 10 mg PO DAILY #30 tabs 09/05/22 10/07/22 Rx losartan 25 mg tablet 25 mg PO QAM #30 tabs 10/06/22 10/07/22 Rx metoprolol tartrate 25 mg tablet 25 mg PO BID #60 tabs 10/06/22 10/07/22 Rx pantoprazole 40 mg tablet,delayed 40 mg PO QAM #30 tabs 10/06/22 10/07/22 Rx release ticagrelor 90 mg tablet (Brilinta) 90 mg PO BID #60 tabs 10/06/22 10/07/22 Rx Allergies Allergy/AdvReac Type Severity Reaction Status Date / Time No Known Drug Allergies Allergy Verified 10/07/22 12:09 Past Med/Surg History Medical History Hyperlipidemia Hypertension Kidney stones Seasonal allergies Surgical History H/O colonoscopy with polypectomy History of cataract surgery RT/LEFT History of section x 2 Family History Father Cardiac disorder Myocardial infarction Mother Hypertension Sister Hypertension Brother Skin cancer Grandmother (Paternal) Stomach cancer Other No family history of adverse response to anesthesia Denies family history of Ovarian cancer Prostate cancer Breast cancer Colorectal cancer Social History Smoking Status: Never smoker Second Hand Exposure: No; Hx Alcohol Use: No Hx Substance Use: No Preferred Language: Tajik Communication Ability: Effective Visual Impairment: No Limitations Hearing Ability: Normal Homemaker Companion Required: No Beliefs That Will Affect Care: None marital status: Current Living Situation: Spouse current occupational status: employed current occupation: Self-employed Feels Safe at Home: Yes Seatbelt Use: always Assistive Devices: None Review of Systems A total of 10 systems reviewed and were otherwise negative Physical Exam Vital Signs Vital Signs - 24 hr 10/07/22 16:55 10/07/22 17:07 10/07/22 20:42 Temperature 36.9 C Temperature Source Oral Pulse Rate 79 Pulse Rate [Finger] 79 Pulse Rhythm [Finger] Regular Pulse Strength [Finger] Normal Respiratory Rate 16 18 Respiratory Effort / Characteristics Non-Labored Spontaneous Respiratory Depth Normal Respiratory Pattern Regular Blood Pressure 143/90 H Blood Pressure [Right Arm] 164/76 H Blood Pressure Mean 107 Blood Pressure Mean [Right Arm] 105 Pulse Oximetry 97 97 96 Oxygen Delivery Method Room Air Room Air Room Air Sepsis Recent Fever Within 48 Hours No Sepsis New/Unexplained Change in Mental Status No Sepsis Action Taken by Nursing No Action Required 10/07/22 20:42 Temperature Temperature Source Pulse Rate Pulse Rate [Finger] 69 Pulse Rhythm [Finger] Pulse Strength [Finger] Respiratory Rate 18 Respiratory Effort / Characteristics Non-Labored Respiratory Depth Normal Respiratory Pattern Blood Pressure Blood Pressure [Right Arm] 135/87 Blood Pressure Mean Blood Pressure Mean [Right Arm] 103 Pulse Oximetry 96 Oxygen Delivery Method Room Air Sepsis Recent Fever Within 48 Hours Sepsis New/Unexplained Change in Mental Status Sepsis Action Taken by Nursing General: Well developed well nourished older female who in no acute distress, breathing comfortably on room air. Normal speech HEENT: Normal cephalic atraumatic. Pupils are equal round and reactive to light. Extraocular movements are intact. Oropharynx is pink with moist mucous membranes. No swelling of the mouth lips or tongue. Neck: Supple with a midline trachea. No meningeal signs or stiffness, no JVD or bruits. No Stridor. Chest: Clear to auscultation bilaterally. No wheezes or rhonchi. No increased work of breathing. Heart: Regular rate and rhythm without murmurs or gallops. Abdomen: Soft nontender, nondistended without rebound guarding or rigidity. Extremities: No cyanosis clubbing or edema. No calf tenderness or assymetry normal pulse in the left wrist. The left hand is pink and well-perfused appearing normal motor and sensation Spine/Back. Non tender to palpation. No CVA tenderness Skin: Good turgor without rashes. Neurologic exam: Cranial nerves two through 12 are intact. Motor and sensation are intact and symmetrical throughout. Procedures Free Text Procedures Start Time: 17:13 10/07/2022 Reason: Patient with PMHx of recent and and stent underwent ED Observation for possible acute coronary syndrome. Fam Hx: Cardiac disease-Father SocHx: See Below Assessment(s): [Consider Times] Summary: This patient comes in with tingling her left arm she had a cardiac stent x3 placed couple days ago after having an MS. She left yesterday she has no chest pain or shortness of breath however she has some tingling in the arm. on exam she has no neurologic deficits. This arm was not used for cath procedure. Her initial troponin was elevated however down from when she last had a check her initial EKG shows T wave inversions inferiorly and laterally which look progressed compared to the most recent one while she was in the hospital however they are most most likely evolutionary. I did a second and third EKG and there is no change compared to the first. She had an second troponin done and it was mildly elevated compared to the first so she will need to come in the hospital for further treatment and evaluation Disposition: Admission due to rising troponin . 21:07 10/07/2022 . Total Time: 3 hours and 54-minute Medical Decision Making Differential Diagnosis Acute coronary syndrome, arrhythmia, neurologic disease, vascular disease, infection Medical Records Attestation: I reviewed the patient's medical records. Home Medications Current Medication List: was personally reviewed by me Laboratory Data Attestation: I reviewed the patient's lab results. Result diagrams: 10/07/22 17:13 10/07/22 17:13 Lab Results 10/07/22 10/07/22 10/07/22 Range/Units 17:13 17:13 17:13 WBC 9.37 (4.8-10.8) K/ul RBC 4.14 (3.93-5.22) M/uL Hgb 12.2 (12.0-16.0) g/dl Hct 36.1 (34.1-44.9) % MCV 87.2 (80.0-100.0) fL MCH 29.5 (25.0-34.0) pg MCHC 33.8 (32.0-36.0) g/dL RDW Std Deviation 41.0 (36.4-46.3) fL RDW Coeff of Bg 13.0 (11.5-14.5) % Plt Count 372 (130-400) K/uL MPV 9.2 L (9.4-12.3) fL Immature Gran % (Auto) 0.4 % Neut % (Auto) 61.1 % Lymph % (Auto) 29.0 % Wilkes % (Auto) 7.4 % Eos % (Auto) 1.4 % Baso % (Auto) 0.7 % Neut # (Auto) 5.72 (1.4-6.5) K/uL Lymph # (Auto) 2.72 (1.2-3.4) K/uL Wilkes # (Auto) 0.69 (0.24-0.82) K/uL Eos # (Auto) 0.13 (0-0.50) K/uL Baso # (Auto) 0.07 (0-0.2) K/uL Immature Gran # (Auto) 0.04 H (0.00-0.02) K/uL PT Cancelled INR Cancelled APTT Cancelled PTT Ratio Cancelled Sodium 140 (136-145) mmol/L Potassium 4.2 (3.5-5.1) mmol/L Chloride 109 H (98-107) mmol/L Carbon Dioxide 22 (21-32) mmol/L Anion Gap 9 (3-11) BUN 21 (6-23) mg/dl Creatinine 0.66 (0.6-1.2) mg/dl Est Cr Clr Drug Dosing 65.0 ml/min Est GFR ( Amer) 108.2 ml/min Est GFR (Non-Af Amer) 93.4 ml/min BUN/Creatinine Ratio 31.8 H (10-20) Glucose 170 H (70-99(Fasting)) mg/dl Calcium 9.1 (8.5-10.1) mg/dl Total Bilirubin 0.6 (0.2-1.0) mg/dl AST 27 (13-39) U/L ALT 34 (7-52) U/L Alkaline Phosphatase 100 (34-104) U/L Troponin I High Sens 2668.4 H* (0-14) pg/ml Total Protein 7.1 (6.0-8.3) gm/dl Albumin 4.4 (3.4-5.0) gm/dl Globulin 2.7 (2.5-4.0) gm/dl Albumin/Globulin Ratio 1.6 (0.9-2) Lipase 33 (11-82) U/L SARS-CoV-2, RNA, NAAT (NEGATIVE) 10/07/22 10/07/22 10/07/22 Range/Units 19:11 19:11 21:14 WBC (4.8-10.8) K/ul RBC (3.93-5.22) M/uL Hgb (12.0-16.0) g/dl Hct (34.1-44.9) % MCV (80.0-100.0) fL MCH (25.0-34.0) pg MCHC (32.0-36.0) g/dL RDW Std Deviation (36.4-46.3) fL RDW Coeff of Bg (11.5-14.5) % Plt Count (130-400) K/uL MPV (9.4-12.3) fL Immature Gran % (Auto) % Neut % (Auto) % Lymph % (Auto) % Wilkes % (Auto) % Eos % (Auto) % Baso % (Auto) % Neut # (Auto) (1.4-6.5) K/uL Lymph # (Auto) (1.2-3.4) K/uL Wilkes # (Auto) (0.24-0.82) K/uL Eos # (Auto) (0-0.50) K/uL Baso # (Auto) (0-0.2) K/uL Immature Gran # (Auto) (0.00-0.02) K/uL PT 9.9 INR 0.9 APTT 24.8 PTT Ratio 0.9 Sodium (136-145) mmol/L Potassium (3.5-5.1) mmol/L Chloride (98-107) mmol/L Carbon Dioxide (21-32) mmol/L Anion Gap (3-11) BUN (6-23) mg/dl Creatinine (0.6-1.2) mg/dl Est Cr Clr Drug Dosing ml/min Est GFR ( Amer) ml/min Est GFR (Non-Af Amer) ml/min BUN/Creatinine Ratio (10-20) Glucose (70-99(Fasting)) mg/dl Calcium (8.5-10.1) mg/dl Total Bilirubin (0.2-1.0) mg/dl AST (13-39) U/L ALT (7-52) U/L Alkaline Phosphatase (34-104) U/L Troponin I High Sens 3109.4 H* (0-14) pg/ml Total Protein (6.0-8.3) gm/dl Albumin (3.4-5.0) gm/dl Globulin (2.5-4.0) gm/dl Albumin/Globulin Ratio (0.9-2) Lipase (11-82) U/L SARS-CoV-2, RNA, NAAT NEGATIVE (NEGATIVE) Imaging Data Attestation: I personally reviewed and interpreted this imaging study as follows: My Impression: Chest x-ray did Radiologist's Impression: Chest X-Ray 10/07/22 17:14 SINGLE VIEW CHEST CLINICAL HISTORY: Atypical chest pain FINDINGS: An AP, portable, upright chest radiograph is compared to study dated 10/04/2022. The heart is mildly enlarged. The pulmonary vasculature is noncongested. The lungs and pleural spaces are clear noting mild bibasilar atelectasis. No pneumothorax is seen. The skeletal structures are osteopenic. The bony thorax is grossly intact. IMPRESSION: No acute cardiopulmonary abnormality. ACT 112: Negative or not required by law. Electronically signed by: Boyd Chery M.D. 10/07/2022 5:[address] 10/07/22 19:14 CT OF THE HEAD WITHOUT CONTRAST CLINICAL HISTORY: Tingling in left hand. COMPARISON STUDY: No previous studies for comparison. CT DOSE: 537.48 mGy.cm TECHNIQUE: Helical axial images of the head were obtained without IV contrast. Automated exposure control was utilized for the study. A dose lowering technique was utilized adhering to the principles of ALARA. FINDINGS: No acute intracranial hemorrhage, midline shift or mass effect is present. White matter hypodensity suggests small vessel disease. The ventricular system is unremarkable. The basal cisterns are patent. No extra-axial collections are present. There are no findings to suggest acute dural sinus thrombosis or acute territorial infarct. No significant calvarial abnormalities are present. Visualized portions of the sinuses and mastoid air cells are clear. Left mastoidectomy is noted. IMPRESSION: No acute intracranial findings. ACT 112: Negative or not required by law. Electronically signed by: Scotty Michel M.D. 10/07/2022 7:41 PM ECG Data Indication: + other (Left arm tingling) Rate (beats per minute): 72 Rhythm: + normal sinus ECG Intervals/blocks: + Normal QRS, + Normal QT and + Normal MO ECG [place]: + Left axis deviation ECG ST segments: + Normal ST segments and + T-wave inversions (Inferiorly and laterally) ECG Findings: no PACs or no PVCs Comparison ECG Date: from (10/04/22) Change: the following changes noted (The T wave inversions inferiorly are much more prominent.) Additional Comments: EKG #2normal sinus rhythm with T wave inversions inferiorly and laterally unchanged from EKG #1 EKG #3 normal sinus and with T wave inversions inferiorly laterally unchanged from EKG #2 MDM Narrative This patient comes in as described above she has recent cardiac disease/MS with a stent placed. she now comes in with tingling in her left arm the nurses asked me to see her I saw her out in triage and she looks well has stable vital signs. She has had no chest pain or shortness of breath. EKG does have some T wave inversions inferiorly. I did pull her old EKG for comparison. These T wave inversions are new however they be evolutionary as she had a recent MRI, I did order multiple blood testing as well as a chest x-ray and cardiac enzymes. She was reassessed frequently. She was placed in ED observation. Second and third EKG shows no significant change of her to the first. Her troponin came back elevated however less than when she left I did a second troponin and it was more elevated in the first I did discuss the care with her with Dr. Heri Brown twice and he does feel she should be observed in the hospital. I have consulted the medical team for this he did not recommend any anticoagulation at this point. I did a CAT scan of her head as well and there is no acute hemorrhage or abnormality seen. Continuous cardiac monitoring: Orders placed in EMR for continuous cardiac monitoring. Upon my interpretation the patient was noted to be in normal sinus rhythm rate of 60 Impression & Plan Elevated troponin, Acute electrocardiogram changes, Numbness and tingling in left arm, Lab test negative for COVID-19 virus Discharge Plan Visit Data Chief Complaint: Arm Pain Stated Complaint: NUMBNESS IN LEFT ARM ED Provider: Rohit Alba Discharge Problem: Elevated troponin, Acute electrocardiogram changes, Numbness and tingling in left arm, Lab test negative for COVID-19 virus Forms Stand Alone Forms: My [facility] Prescriptions Prescriptions: No Action ascorbate calcium (vitamin C) 500 mg tablet 500 mg PO QAM atorvastatin 10 mg tablet 10 mg PO DAILY Qty: 30 5RF aspirin 81 mg Tablet,Chewable 81 mg PO QAM Label Comments: bertin on hold for surgery [facility] 40-10-5-3.3 mg Tablet 1 tab PO QAM cholecalciferol (vitamin D3) [Vitamin D3] 50 mcg (2,000 unit) Capsule 50 mcg PO QAM lutein 10 mg tablet 10 mg PO QAM Rx Instructions: give with meal/snack Brilinta 90 mg Tablet 90 mg PO BID Qty: 60 0RF losartan 25 mg Tablet 25 mg PO QAM Qty: 30 0RF metoprolol tartrate 25 mg Tablet 25 mg PO BID Qty: 60 0RF pantoprazole 40 mg Tablet,Delayed Release (Dr/Ec) 40 mg PO QAM Qty: 30 0RF Referrals Referrals: Argenis Fontaine MD [Primary Care Provider] -
[2022-10-07 17:49] LABS: Basophils # (auto) 0.07 K/uL (0-0.2); Basophils % (auto) 0.7 %; Eosinophils # (auto) 0.13 K/uL (0-0.50); Eosinophils % (auto) 1.4 %; Hematocrit (blood only) 36.1 % (34.1-44.9); Hemoglobin 12.2 g/dl (12.0-16.0); Immature Granulocytes # (auto) 0.04 K/uL (0.00-0.02); Immature Granulocytes % (auto) 0.4 %; Lymphocytes # (auto) 2.72 K/uL (1.2-3.4); Mean Corpuscular Hemoglobin 29.5 pg (25.0-34.0); Mean Corpuscular Hgb Conc 33.8 g/dL (32.0-36.0); Mean Corpuscular Volume 87.2 fL (80.0-100.0); Mean Platelet Volume 9.2 fL (9.4-12.3); Monocytes # (auto) 0.69 K/uL (0.24-0.82); Monocytes % (auto) 7.4 %; Neutrophils # (auto) 5.72 K/uL (1.4-6.5); Neutrophils % (auto) 61.1 %; Platelet Count 372 K/uL (130-400); Red Blood Count 4.14 M/uL (3.93-5.22); White Blood Count 9.37 K/ul (4.8-10.8)
--- NOTE | 2022-10-07 17:52 | XRay Report ---
SINGLE VIEW CHEST CLINICAL HISTORY: Atypical chest pain FINDINGS: An AP, portable, upright chest radiograph is compared to study dated 10/04/2022. The heart is mildly enlarged. The pulmonary vasculature is noncongested. The lungs and pleural spaces are clear noting mild bibasilar atelectasis. No pneumothorax is seen. The skeletal structures are osteopenic. The bony thorax is grossly intact. IMPRESSION: No acute cardiopulmonary abnormality. ACT 112: Negative or not required by law. Electronically signed by: Boyd Chery M.D. 10/07/2022 5:51 PM
[2022-10-07 18:03] LABS: Albumin Globulin Ratio 1.6 (0.9-2); Albumin Level 4.4 gm/dl (3.4-5.0); BUN Creatinine Ratio 31.8 (10-20); Bilirubin,Total 0.6 mg/dl (0.2-1.0); Calcium 9.1 mg/dl (8.5-10.1); Est GFR (African American) 108.2 ml/min; Est GFR (Non-African American) 93.4 ml/min; Globulin 2.7 gm/dl (2.5-4.0); Potassium 4.2 mmol/L (3.5-5.1); Total Protein 7.1 gm/dl (6.0-8.3)
[2022-10-07 18:10] LABS: Troponin I High Sensitivity 2668.4 pg/ml (0-14)
--- NOTE | 2022-10-07 19:42 | CT Scan Report ---
CT OF THE HEAD WITHOUT CONTRAST CLINICAL HISTORY: Tingling in left hand. COMPARISON STUDY: No previous studies for comparison. CT DOSE: 537.48 mGy.cm TECHNIQUE: Helical axial images of the head were obtained without IV contrast. Automated exposure con trol was utilized for the study. A dose lowering technique was utilized adhering to the principles o f ALARA. FINDINGS: No acute intracranial hemorrhage, midline shift or mass effect is present. White matter hyp odensity suggests small vessel disease. The ventricular system is unremarkable. The basal cisterns ar e patent. No extra-axial collections are present. There are no findings to suggest acute dural sinus thrombosis or acute territorial infarct. No significant calvarial abnormalities are present. Visualiz ed portions of the sinuses and mastoid air cells are clear. Left mastoidectomy is noted. IMPRESSION: No acute intracranial findings. ACT 112: Negative or not required by law. Electronically signed by: Scotty Michel M.D. 10/07/2022 7:41 PM
[2022-10-07 20:41] LABS: INR 0.9 (0.9-1.1); Partial Thromboplastin Ratio 0.9; Partial Thromboplastin Time 24.8 Seconds (21.0-31.0); Prothrombin Time 9.9 Seconds (9.0-12.0)
--- NOTE | 2022-10-07 21:48 | History & Physical Report ---
Date of Service October 07, 2022 Assessment & Plan (1) Elevated troponin: Plan: hsTroponin 2668.4 --> 3109.4 (down from 78023 on 10/05). EKG x3 showed non- specific ST abnormality in inferior leads and inferior T-wave inversions more prominent in comparison to prior hospitalization. Unclear if EKG changes represent EKG progression s/p MN or new ACS. - admit for telemetry monitoring - trend hsTroponin Q6H until peak - check TTE - continue ASA/Brilinta - hold on Heparin gtt for now, per Cardiology recommendations - Cardiology consulted - appreciate recs - NPO pending consultation - PRN SL Nitro/EKG for chest pain (2) Numbness and tingling in left arm: Plan: Neurovascularly intact and strength/reflexes intact. ?Cardiac etiology. - trend clinically for changes - otherwise plan as above (3) Acute MN, inferior wall: Plan: History of on 10/04. S/p JAY x3 to RCA. - continue ASA/Brilinta as stated above - continue home Losartan, Metoprolol and Atorvastatin (4) Hypertension: Plan: Continue home LAKISHA-I/BB as stated above (5) Hyperlipidemia: Plan: LDL 138. Continue home Atorvastatin 40mg daily Plan FEN/GI: NPO DVT Prophylaxis: Lovenox SQ Code Status: full code Disposition: med/tele History of Present Illness Chief Complaint: left arm numbness Primary Care Provider: Argenis Fontaine MD Yumiko Serrato is a 62yo female with PMHx significant for HTN who presented to [facility] ED on 10/07 for acute-onset mild left arm numbness which started at 15:00, without chest pain, palpitations, diaphoresis, syncope/near-syncope, or N/V. Of note patient was recently admitted here from 10/04 to 10/06 for acute inferior STEMI that required JAY x3 to RCA (with minimal non-culprit disesae). Had TTE showing EF 50% and inferior wall motion abnormalities. Patient was discharged on 10/06 wi th ASA/Brilinta, Metoprolol, Losartan and Atorvastatin. Patient denies previous MN although did have episode of chest pain "years ago" that resolved without intervention. Denies family h/o heart disease/MN. She is a never smoker and denies alcohol/drug use. Proficient in ADLs/iADLs. In the ED the patient was afebrile/hemodynamically stable on room air. EKG x3 showed non-specific ST abnormality in inferior leads and inferior T-wave inversions more prominent in comparison to prior hospitalization. hsTroponin 2668.4 --> 3109.4 (down from 22394 on 10/05). CBC/CMP/PT/PTT/INR WNL. ED Provider spoke with Dr. Brown who recommended admission, trended hsTroponin, and no Heparin gtt for now. Allergies Allergy/AdvReac Type Severity Reaction Status Date / Time No Known Drug Allergies Allergy Verified 10/09/22 14:14 Home Medications Medication Instructions Recorded Confirmed Type aspirin 81 mg chewable tablet 81 mg PO QAM 11/30/18 10/09/22 History cartilage 40 mg-collagen II 10 1 tab PO QAM 11/30/18 10/09/22 History mg-boron 5 mg-hyaluronate 3.3 mg tablet (B[employer]) ascorbate calcium (vitamin C) 500 500 mg PO QAM 01/13/22 10/09/22 History mg tablet cholecalciferol (vitamin D3) 50 50 mcg PO QAM 01/14/22 10/09/22 History mcg (2,000 unit) capsule (Vitamin D3) lutein 10 mg tablet 10 mg PO QAM 01/14/22 10/09/22 History losartan 25 mg tablet 25 mg PO QAM #30 tabs 10/06/22 10/09/22 Rx metoprolol tartrate 25 mg tablet 25 mg PO BID #60 tabs 10/06/22 10/09/22 Rx pantoprazole 40 mg tablet,delayed 40 mg PO QAM #30 tabs 10/06/22 10/09/22 Rx release ticagrelor 90 mg tablet (Brilinta) 90 mg PO BID #60 tabs 10/06/22 10/09/22 Rx atorvastatin 40 mg tablet 40 mg PO QAM 30 days #30 tabs 10/08/22 10/09/22 Rx Past Med/Surg History Medical History Hyperlipidemia Hypertension Kidney stones Seasonal allergies Surgical History H/O colonoscopy with polypectomy History of cataract surgery RT/LEFT History of section x 2 Family History Father Cardiac disorder Myocardial infarction Mother Hypertension Sister Hypertension Brother Skin cancer Grandmother (Paternal) Stomach cancer Other No family history of adverse response to anesthesia Denies family history of Ovarian cancer Prostate cancer Breast cancer Colorectal cancer Social History Smoking Status: Never smoker Second Hand Exposure: No; Hx Alcohol Use: No Hx Substance Use: No Preferred Language: Danish Communication Ability: Effective Visual Impairment: No Limitations Hearing Ability: Normal Foreign Exchange Services Manager Required: No Beliefs That Will Affect Care: Episcopalian marital status: Current Living Situation: Spouse current occupational status: employed current occupation: Self-employed Feels Safe at Home: Yes Seatbelt Use: always Assistive Devices: None Review of Systems Review of Systems: All systems reviewed & are unremarkable except as noted in HPI & below Physical Exam Physical Exam: General: A&Ox3. NAD. Cooperative. HEENT: Atraumatic, normocephalic. Pulm: CTAB A&P. -wheezes, -rales, -rhonchi. Symmetrical chest rise. No increase work of breathing. No respiratory distress. Cardiac: RRR, -mrg. Radial pulses intact and symmetrical. No LE edema. Abdominal: soft, non-tender, non-distended, BS x 4 Left arm: neurovascularly intact, 5/5 strength throughout, 2+ reflexes Skin: warm, dry, no rash Results & Data Results & Data ([facility]) Vital Signs (Past 12 Hours) Vital Signs Temp Pulse Pulse Resp BP BP Pulse Ox 10/07/22 20:42 69 18 135/87 96 10/07/22 20:42 96 10/07/22 17:07 79 18 164/76 H 97 10/07/22 16:55 36.9 C 79 16 143/90 H 97 O2 Del Method 10/07/22 20:42 Room Air 10/07/22 20:42 Room Air 10/07/22 17:07 Room Air 10/07/22 16:55 Room Air Supervising Physician Co-Signing Physician Notes Attending addendum: I have physically seen this patient, have supervised the medical residents activities, and agree with the H&P unless as otherwise noted. Assessment and Plan: Elevated troponin/history of MN inferior wall/status post JAY x3 to RCA/hypertension- The patient will be admitted to telemetry for serial cardiac enzymes, serial E KG's, cardiac rhythm monitoring Troponin 2668.4 with increased to 3109.4. Previous troponin 11,145 on 10/05 Continue aspirin 81 mg daily and Brilinta 90 mg p.o. twice daily Continue losartan and metoprolol Consult cardiology, no heparin drip per cardiology recommendations at this time Hyperlipidemia- Continue atorvastatin Remaining orders and notations as noted Resident Activity Tracking Resident Involvement: Resident Care Provided Care Provided: Adult Hospital Medicine
[2022-10-07] MEDS ORDERED: METOPROLOL TARTRATE 25 MG TAB PO STA (23:19)
[2022-10-07] MEDS ORDERED: TICAGRELOR 90 MG TAB PO STA (23:20)
[2022-10-07] MEDS ORDERED: NITROGLYCERIN SL 0.4 MG/TAB TAB SL STA (23:46)
[2022-10-07] MEDS ORDERED: NITROGLYCERIN SL 0.4 MG/TAB TAB ONE (23:49)
[2022-10-08] MEDS ORDERED: ENOXAPARIN INJ 40 MG/0.4 ML SYR SQ SCH (00:20)
[2022-10-08] MEDS ORDERED: NITROGLYCERIN SL 0.4 MG/TAB TAB SL PRN (00:20)
[2022-10-08] MEDS ORDERED: ACETAMINOPHEN 500 MG TAB PO PRN (00:20)
[2022-10-08] MEDS ORDERED: HEPARIN SOD (PORCINE) 1000 UNIT/ML IV ONE ×2 (00:45→08:43)
[2022-10-08] MEDS ORDERED: HEPARIN SODIUM/DEXTROSE 25,000 UNITS/500 ML BAG IV SCH (00:45)
[2022-10-08] MEDS: Heparin IV Adult Wt-Based Low-Dose WITH Bolus Protocol IV SCH (00:45)
[2022-10-08 05:52] LABS: BUN Creatinine Ratio 28.1 (10-20); Calcium 8.9 mg/dl (8.5-10.1); Creatinine Clr Calc Pharmacy 75.2 ml/min; Est GFR (African American) 113.5 ml/min
[2022-10-08 08:16] LABS: Partial Thromboplastin Ratio 1.1; Partial Thromboplastin Time 29.3 Seconds (21.0-31.0)
[2022-10-08] MEDS ORDERED: HEPARIN IV BOLUS 4,000 UNITS in SYRINGE 0 ML IV ONE (09:00)
[2022-10-08] MEDS ORDERED: METOPROLOL TARTRATE 25 MG TAB PO SCH (09:00)
[2022-10-08] MEDS ORDERED: ATORVASTATIN 40 MG TAB PO SCH (09:00)
[2022-10-08] MEDS ORDERED: LOSARTAN POTASSIUM 25 MG TAB PO SCH (09:00)
[2022-10-08] MEDS ORDERED: ASPIRIN 81 MG ECTAB PO SCH (09:00)
[2022-10-08] MEDS ORDERED: PANTOprazole 40 MG TAB PO SCH (09:00)
[2022-10-08] MEDS ORDERED: TICAGRELOR 90 MG TAB PO SCH (09:00)
--- NOTE | 2022-10-08 09:51 | Hospitalist Progress Note ---
Date of Service October 08, 2022 Assessment & Plan (1) Elevated troponin: Plan: hsTroponin 2668.4 --> 3109.4 (down from 56000 on 10/05). EKG x3 showed non- specific ST abnormality in inferior leads and inferior T-wave inversions more prominent in comparison to prior hospitalization. Unclear if EKG changes represent EKG progression s/p NC or new ACS. - admit for telemetry monitoring - trend hsTroponin Q6H until peak - check TTE - continue ASA/Brilinta - hold on Heparin gtt for now, per Cardiology recommendations - Cardiology consulted - appreciate recs - NPO pending consultation - PRN SL Nitro/EKG for chest pain (2) Numbness and tingling in left arm: Plan: Neurovascularly intact and strength/reflexes intact. ?Cardiac etiology. - trend clinically for changes - otherwise plan as above (3) Acute NC, inferior wall: Plan: History of on 10/04. S/p JAY x3 to RCA. - continue ASA/Brilinta as stated above - continue home Losartan, Metoprolol and Atorvastatin (4) Hypertension: Plan: Continue home LAKISHA-I/BB as stated above (5) Hyperlipidemia: Plan: LDL 138. Continue home Atorvastatin 40mg daily Plan FEN/GI: NPO DVT Prophylaxis: Lovenox SQ Code Status: full code Disposition: med/tele Admission and Anticipated Discharge Date Admission Date: October 07, 2022 Results & Data Results & Data ([facility]) Vital Signs (Past 12 Hours) Vital Signs Pulse Pulse Resp BP BP Pulse Ox Pulse Ox 10/08/22 08:00 73 20 141/85 H 95 10/08/22 05:00 63 16 119/73 96 10/08/22 04:00 65 18 121/71 96 10/08/22 03:30 63 20 121/71 94 10/08/22 02:06 68 16 128/80 96 10/08/22 00:20 93 10/08/22 00:50 72 16 98/65 L 93 10/08/22 00:30 75 16 122/78 93 10/07/22 22:55 69 22 153/91 H 97 O2 Del Method O2 Del Method 10/08/22 08:00 10/08/22 05:00 10/08/22 04:00 10/08/22 03:30 10/08/22 02:06 Room Air 10/08/22 00:20 Room Air 10/08/22 00:50 Room Air 10/08/22 00:30 Room Air 10/07/22 22:55 Room Air
[2022-10-08] MEDS ORDERED: amLODIPine BESYLATE 5 MG TAB PO ONE ×2 (09:53→10:49)
--- NOTE | 2022-10-08 13:41 | Medical Student Progress Note ---
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 Less likely cardiac cause for this symptom due to location mainly at the forearm. Elevated troponins likely from prior mi 10/04. EKG showed non-specific ST abnormality in inferior leads and inferior T-wave inversions. Unclear if EKG changes represent EKG progression s/p CO or new ACS. Troponin downtrending consistently. -follow up with primary care if numbness gets worse or persists (2) Post CO Management -continue duel platelet -Brilinta 90mg bid po -ASA 81 mg po -atorv 40 mg daily -losartan 25 mg daily -metoprolol 25 mg bid -nitro prn -heparin while inpatient -follow up with [employer] Dr. Avery (3) Hypertension: -Continue losartan/BB as stated above (4) Hyperlipidemia: -LDL 138. Continue home Atorvastatin 40mg daily Plan FEN/GI: regular DVT Prophylaxis: Lovenox SQ Code Status: full code Disposition: med/tele Admission and Anticipated Discharge Date Admission Date: October 07, 2022 Physical Exam Constitutional: well appearing, no acute distress Respiratory: CTA b/l Cardiovascular: rrr no mrg, no carotid bruits. symmetric radial and pedal pulses, no lower ext edema. Musculoskeletal: left and right blue leather sorter strength 5/5. Results & Data ([facility]) Vital Signs (Past 12 Hours) Vital Signs Pulse Pulse Resp BP BP Pulse Ox O2 Del Method 10/08/22 08:00 73 20 141/85 H 95 10/08/22 05:00 63 16 119/73 96 10/08/22 04:00 65 18 121/71 96 10/08/22 03:30 63 20 121/71 94 10/08/22 02:06 68 16 128/80 96 Room Air
--- NOTE | 2022-10-08 14:49 | Electrocardiogram Report ---
Test Reason : Blood Pressure : / mmHG Vent. Rate : 072 BPM Atrial Rate : 072 BPM P-R Int : 186 ms QRS Dur : 098 ms QT Int : 386 ms P-R-T Axes : 047 -47 -45 degrees QTc Int : 422 ms Normal sinus rhythm Possible Left atrial enlargement Left axis deviation T wave abnormality, consider inferior ischemia Abnormal ECG When compared with ECG of 04-OCT-2022 18:01, Non-specific change in ST segment in Inferior leads T wave inversion more evident in Inferior leads Nonspecific T wave abnormality now evident in Anterior leads Confirmed by Say Garcia ([id number]) on 10/08/2022 2:49:22 PM Referred By: REFERRED SELF Confirmed By:Say Garcia
--- NOTE | 2022-10-08 14:50 | Electrocardiogram Report ---
Test Reason : Blood Pressure : / mmHG Vent. Rate : 069 BPM Atrial Rate : 069 BPM P-R Int : 192 ms QRS Dur : 088 ms QT Int : 380 ms P-R-T Axes : 049 -37 -45 degrees QTc Int : 407 ms Poor data quality, interpretation may be adversely affected Normal sinus rhythm Possible Left atrial enlargement Left axis deviation Inferior infarct , age undetermined Abnormal ECG When compared with ECG of 07-OCT-2022 17:06, (unconfirmed) No significant change was found Confirmed by Say Garcia ([id number]) on 10/08/2022 2:50:00 PM Referred By: REFERRED SELF Confirmed By:Say Garcia
--- NOTE | 2022-10-08 14:50 | Electrocardiogram Report ---
Test Reason : Blood Pressure : / mmHG Vent. Rate : 067 BPM Atrial Rate : 067 BPM P-R Int : 194 ms QRS Dur : 094 ms QT Int : 394 ms P-R-T Axes : 047 -34 -45 degrees QTc Int : 416 ms Normal sinus rhythm Possible Left atrial enlargement Left axis deviation Inferior infarct (cited on or before 07-OCT-2022) Abnormal ECG When compared with ECG of 07-OCT-2022 17:44, (unconfirmed) No significant change was found Confirmed by Say Garcia ([id number]) on 10/08/2022 2:50:15 PM Referred By: REFERRED SELF Confirmed By:Say Garcia
--- NOTE | 2022-10-08 14:58 | Electrocardiogram Report ---
Test Reason : Blood Pressure : / mmHG Vent. Rate : 069 BPM Atrial Rate : 069 BPM P-R Int : 196 ms QRS Dur : 102 ms QT Int : 392 ms P-R-T Axes : 045 -33 -43 degrees QTc Int : 420 ms Normal sinus rhythm Possible Left atrial enlargement Left axis deviation Inferior infarct (cited on or before 07-OCT-2022) Abnormal ECG When compared with ECG of 07-OCT-2022 18:07, (unconfirmed) No significant change was found Confirmed by Say Garcia ([id number]) on 10/08/2022 2:57:57 PM Referred By: REFERRED SELF Confirmed By:Say Garcia
--- NOTE | 2022-10-08 16:17 | Cardiology Consultation ---
Date of Consultation October 08, 2022 Assessment & Plan (1) Elevated troponin: Very recent inferior ST elevation AL treated with implantation of 3 drug-eluting stents in the RCA. No residual coronary disease in the RCA and none in the left coronary system. Her presentation is not consistent with acute AL. Currently not consistent with acute stent thrombosis as that presents typically with ST elevations and her symptoms would not be subtle. In fact, her current symptoms are not at all like her recent AL. I wonder if the left hand numbness is associated with her malfunctioning IV on last admission and medication infiltrated at that time. Could also be related to ulnar nerve injury/entrapment since she has had longstanding issues with intermittent hand numbness. Her troponins are significantly less then her peak of over 13,000 and are fluctuating between 2 and 3000 which is more consistent with clearing of the troponin post AL. Certainly, she could have some mild extension of her prior AL as often occurs post PCI. In any case, we are treating her appropriately by maintaining dual antiplatelet therapy and using guideline directed medical therapy with high intensity statin, beta-varsha, etc. Probably unnecessary to continue heparin at this point. I believe an echocardiogram was ordered and I am awaiting results. (2) Hypertension: Patient has had a longstanding problem with hypertension. She has significant spikes in her blood pressure which we have mostly controlled during her recent admission. However, it sounds like she had a blood pressure spike while at home which may be secondary to the changes in her usual regimen. If her blood pressure remains elevated then I would recommend resuming amlodipine but at 2.5 mg daily to begin with. (3) Hyperlipidemia: High risk. High intensity statin therapy recommended. Continue current statin dose. (4) Numbness and tingling in left arm: Could be ulnar nerve entrapment or C8 radiculopathy. It is concerning that it was worse with hypertension. I would be concerned about neurovascular disease given her cardiovascular disease. At some point, may be reasonable for her to undergo neuro imaging of her head to exclude CVA/lacunar infarcts. Could also consider carotid ultrasounds. Plan We will titrate her medications further. If she has no further symptoms and no further spikes in her blood pressure then she will likely be ready for discharge this evening or tomorrow morning. She will follow-up with me in the cardiology office within 1 week. History of Present Illness Reason for Consultation: Left arm numbness, elevated troponin Attending Physician: Lencho Rodriguez DO History of Present Illness This is a pleasant 62-year-old [place] female who is well-known to me from recent admission. At that time, she presented with severe crushing chest pain, bilateral arm ache and hand tingling. This was associated with shortness of breath. EKG demonstrated acute inferior ST elevation AL and I took her immediately to the cardiac catheterization suite where she underwent PCI of the RCA. She had implantation of 2 overlapping drug-eluting stents in the proximal to mid RCA as well as 1 long drug-eluting stent in the distal RCA prior to the bifurcation. The case was complicated by acute stent thrombosis and it was apparent that the left IV site was not working properly. It was also painful to her at that time. Resolution of this issue by injecting the heparin directly through the cath and PTCA completely cleared the issue. She had complete resolution of her symptoms and EKG changes. She remained hospitalized for 48 hours during which time she continued to improve. She was started on appropriate medical therapy and was evidently doing well at home until yesterday afternoon. She had taken her usual medications in the morning and did well but in the evening developed a headache, very elevated blood pressure, and she noted left arm tingling. She denied any chest pain, aching in either of her arms, or radiation of the discomfort elsewhere. She states this was not at all like her myocardial infarction. She came to the emergency department where troponin was checked and found to be elevated. However, it was much lower than her peak during her recent AL. A second troponin was checked and was modestly elevated compared to the prior level. She was started on heparin drip. An echocardiogram was ordered. I was asked to see her regarding this presentation. Patient is interviewed with her son at the bedside. He speaks excellent Malian and also speaks in Setswana with her when she has difficulty expressing her ideas in Malian. She is mostly able to answer and communicate in Malian though. She states she has no chest discomfort whatsoever. She states she did have brief left costal margin chest discomfort overnight but after she received her medications this resolved. She tells me that her blood pressure was over 180 during the time that her arm was numb. She currently has mild tingling in only her left fifth digit. She also tells me that she has for years experience numbness and tingling in her hands and some weakness typically when she is active with her arms. She had some of this with her myocardial infarction as well but there was more cramping and her fingers became locked (trigger finger?) Bilaterally for a brief time during her AL. Her presenting symptoms at this time are only tingling and numbness in the left arm without pain. She denies syncope, near syncope, orthopnea, PND, racing heartbeat, palpitations, or edema. Allergies Allergy/AdvReac Type Severity Reaction Status Date / Time No Known Drug Allergies Allergy Verified 10/07/22 12:09 Home Medications Medication Instructions Recorded Confirmed Type aspirin 81 mg chewable tablet 81 mg PO QAM 11/30/18 10/07/22 History cartilage 40 mg-collagen II 10 1 tab PO QAM 11/30/18 10/07/22 History mg-boron 5 mg-hyaluronate 3.3 mg tablet (Nexsan) ascorbate calcium (vitamin C) 500 500 mg PO QAM 01/13/22 10/07/22 History mg tablet cholecalciferol (vitamin D3) 50 50 mcg PO QAM 01/14/22 10/07/22 History mcg (2,000 unit) capsule (Vitamin D3) lutein 10 mg tablet 10 mg PO QAM 01/14/22 10/07/22 History atorvastatin 10 mg tablet 10 mg PO DAILY #30 tabs 09/05/22 10/07/22 Rx losartan 25 mg tablet 25 mg PO QAM #30 tabs 10/06/22 10/07/22 Rx metoprolol tartrate 25 mg tablet 25 mg PO BID #60 tabs 10/06/22 10/07/22 Rx pantoprazole 40 mg tablet,delayed 40 mg PO QAM #30 tabs 10/06/22 10/07/22 Rx release ticagrelor 90 mg tablet (Brilinta) 90 mg PO BID #60 tabs 10/06/22 10/07/22 Rx Patient History Medical History Hyperlipidemia Hypertension Kidney stones Seasonal allergies Surgical History H/O colonoscopy with polypectomy History of cataract surgery RT/LEFT History of section x 2 Family History Father Cardiac disorder Myocardial infarction Mother Hypertension Sister Hypertension Brother Skin cancer Grandmother (Paternal) Stomach cancer Other No family history of adverse response to anesthesia Denies family history of Ovarian cancer Prostate cancer Breast cancer Colorectal cancer Social History Smoking Status: Never smoker Second Hand Exposure: No; Do You Dip or Chew Tobacco: No; Tobacco Cessation Education Requested by Patient: No Hx Alcohol Use: No Hx Substance Use: No Preferred Language: Malian Communication Ability: Effective Visual Impairment: No Limitations Hearing Ability: Normal Paper Cone Grader Required: No Beliefs That Will Affect Care: Tenriism marital status: Current Living Situation: Spouse current occupational status: employed current occupation: Self-employed Other Information That Helps Us Care for You: No Feels Safe at Home: Yes Seatbelt Use: always Assistive Devices: None Review of Systems Review of Systems: Negative x12 point review except as per HPI Physical Exam Constitutional: WD/WN, vitals as above Eyes: Extraocular muscles intact. Sclera are anicteric. ENMT: Oral mucosa is pink, moist, and intact. Good dentition. Neck: No JVD or bruits Respiratory: Clear to auscultation bilaterally. No wheezing, rhonchi, or rales. Cardiovascular: Regular rate and rhythm. S4 gallop. Chest (Breasts): Additional Comments: Mild tenderness to palpation left costal margin. Gastrointestinal (Abdomen): Normal active bowel sounds. Musculoskeletal: no cyanosis or clubbing, extremities motor strength 5/5 Neurologic: Cognition is intact. Speech is fluent. No focal deficits. Mild numbness limited to the left digit part of the fourth digit (ulnar nerve versus C8 dermatome) Psychiatric: A+Ox3, euthymic affect Results & Data ([facility]) Vital Signs (Past 12 Hours) Vital Signs Pulse Resp BP Pulse Ox 10/08/22 08:00 73 20 141/85 H 95 10/08/22 05:00 63 16 119/73 96 PG Care Time/CCT Total # of Minutes Spent Total Time Spent with Patient: Total time spent is greater than 50% in coordination of care (as documented) at patient's floor/unit and/or counseling patient: Coding Level of Care Code New Pt INP/OBS CONSULT LVL 4, 60 MIN Patient Type New Diagnoses Elevated troponin R77.8 Hypertension I10 Hyperlipidemia E78.5 Numbness and tingling in left arm R20.0; R20.2
[2022-10-08 16:21] LABS: Partial Thromboplastin Ratio 1.5; Partial Thromboplastin Time 41.9 Seconds (21.0-31.0)
--- NOTE | 2022-10-08 17:27 | Discharge Summary ---
Discharge Summary Date of Service October 08, 2022 Notes For Next Care Provider Medication Changes From Visit see attending attestation Admission HPI Per Admitting Provider Yumiko Serrato is a 62yo female with PMHx significant for HTN who presented to [facility] ED on 10/07 for acute-onset mild left arm numbness which started at 15:00, without chest pain, palpitations, diaphoresis, syncope/near-syncope, or N/V. Of note patient was recently admitted here from 10/04 to 10/06 for acute inferior STEMI that required JAY x3 to RCA (with minimal non-culprit disesae). Had TTE showing EF 50% and inferior wall motion abnormalities. Patient was discharged on 10/06 with ASA/Brilinta, Metoprolol, Losartan and Atorvastatin. Patient denies previous UT although did have episode of chest pain "years ago" that resolved without intervention. Denies family h/o heart disease/UT. She is a never smoker and denies alcohol/drug use. Proficient in ADLs/iADLs. In the ED the patient was afebrile/hemodynamically stable on room air. EKG x3 showed non-specific ST abnormality in inferior leads and inferior T-wave inversions more prominent in comparison to prior hospitalization. hsTroponin 2668.4 --> 3109.4 (down from 21289 on 10/05). CBC/CMP/PT/PTT/INR WNL. ED Provider spoke with Dr. Brown who recommended admission, trended hsTroponin, and no Heparin gtt for now. Admission Exam Per Admitting Provider General: Well developed well nourished older female who in no acute distress, breathing comfortably on room air. Normal speech HEENT: Normal cephalic atraumatic. Pupils are equal round and reactive to light. Extraocular movements are intact. Oropharynx is pink with moist mucous membranes. No swelling of the mouth lips or tongue. Neck: Supple with a midline trachea. No meningeal signs or stiffness, no JVD or bruits. No Stridor. Chest: Clear to auscultation bilaterally. No wheezes or rhonchi. No increased work of breathing. Heart: Regular rate and rhythm without murmurs or gallops. Abdomen: Soft nontender, nondistended without rebound guarding or rigidity. Extremities: No cyanosis clubbing or edema. No calf tenderness or assymetry normal pulse in the left wrist. The left hand is pink and well-perfused appearing normal motor and sensation Spine/Back. Non tender to palpation. No CVA tenderness Skin: Good turgor without rashes. Neurologic exam: Cranial nerves two through 12 are intact. Motor and sensation are intact and symmetrical throughout. Principal Dx & Hospital Course #1 = Principal Diagnosis (1) Elevated troponin: (2) Hypertension: (3) Hyperlipidemia: (4) Numbness and tingling in left arm: Plan 62 yo female with hx of acute RCA STEMI sp 3 drug eluting stents, HTN, HLD presents 1/3 for parasthesias in the left forearm/hand. When pts blood pressure began to climb while in hospital while hypertensive medications were on hold, pt began having a headache and ear pain as well as left lower quadrant pressure like pain, however resolved shortly after resuming patients antihypertensives.Pt also concerned about described apneic event that occurred while falling asleep in the hospital. Pt received heparin while inpatient. 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 Less likely cardiac cause for this symptom due to location mainly at the forearm. Elevated troponins likely from prior mi 10/04. EKGshowed non-specific ST abnormality in inferior leads and inferior T-wave inversions. Troponin downtrending consistently. -follow up with primary care if numbness gets worse or persists (2) Post UT Management Troponins continue to downtrend since last admission with peak at 13k and last troponin at 2k -continue duel platelet -Brilinta 90mg bid po -ASA 81 mg po -atorv 40 mg daily -losartan 25 mg daily -metoprolol 25 mg bid -nitro prn -heparin while inpatient, discontinue -follow up with Graphics Edit Technician Dr. Avery (3) Hypertension: -Continue losartan/BB as stated above -cardiology recs -consider amlodipine restart 2.5mg daily PO if they remain elevated on current regimen -follow up [address] Avery (4) Hyperlipidemia: -LDL 138. Continue home Atorvastatin 40mg daily (5) Apneic event Likely related to abnormal sleeping conditions while inpatient due to home sleeping position being different and occurrence only at the hospital. -follow up with primary care if continues Discharge Exam Constitutional WD/WN, vitals as above Respiratory normal respiratory effort, lungs clear to auscultation Cardiovascular RRR, no murmur, no edema symmetric radial/pedal pulses Musculoskeletal hand rn telemetry strength 5/5; no lower ext edema Psychiatric A+Ox3, euthymic affect Updated Medication List Medication Instructions Recorded Confirmed Type aspirin 81 mg chewable tablet 81 mg PO QAM 11/30/18 10/07/22 History cartilage 40 mg-collagen II 10 1 tab PO QAM 11/30/18 10/07/22 History mg-boron 5 mg-hyaluronate 3.3 mg tablet ([employer]) ascorbate calcium (vitamin C) 500 500 mg PO QAM 01/13/22 10/07/22 History mg tablet cholecalciferol (vitamin D3) 50 50 mcg PO QAM 01/14/22 10/07/22 History mcg (2,000 unit) capsule (Vitamin D3) lutein 10 mg tablet 10 mg PO QAM 01/14/22 10/07/22 History losartan 25 mg tablet 25 mg PO QAM #30 tabs 10/06/22 10/07/22 Rx metoprolol tartrate 25 mg tablet 25 mg PO BID #60 tabs 10/06/22 10/07/22 Rx pantoprazole 40 mg tablet,delayed 40 mg PO QAM #30 tabs 10/06/22 10/07/22 Rx release ticagrelor 90 mg tablet (Brilinta) 90 mg PO BID #60 tabs 10/06/22 10/07/22 Rx atorvastatin 40 mg tablet 40 mg PO QAM 30 days #30 tabs 10/08/22 Rx Hospital Stay Data Consultations 10/07/22 21:07 ED Decision to Admit Stat 10/08/22 00:20 Consult Cardiology Routine Diagnostic Imagining Performed 10/07/22 19:14 CT head/brain wo con Stat Pending Results Patient Have Any Pending Studies at Discharge: No Discharge Instructions Given to Patient (Per Discharging Provider) You were admitted to the hospital for concern regarding your heart enzymes. We observed you in the hospital, and your heart enzymes gradually began trending downwards. The numbness in your hand has resolved as well. It will take a few more weeks before your heart fully recovers from your heart attack and your enzymes return to normal levels. Your heart vessels, aside from the one that was stented, are fairly clear. In the very low chance that you have another heart attack, it will feel exactly like the one you had before. You do not need supervision while sleeping at this time. Your current change in breathing in the hospital is likely due to a combination of poor sleep/posture while in a hospital bed combined with stress of being in the hospital while feeling unwell. This should return to normal after returning home. If you continue to have pauses or shortness of breath while sleeping at home for several days, contact your PCP for a sleep study. A discharge summary will be sent to your primary care physician to ensure continuity of care. Please bring this discharge summary with you to your next office appointment so that your provider can review it at that time. Follow-up appointments: Make a follow-up appointment with your PCP within the next week. It is very important that you follow up with them shortly after discharge from the hospital. Keep all your follow-up appointments as already scheduled. If you cannot make an appointment, notify your provider. Medications: Your medication list has been reviewed and reconciled upon discharge to ensure accuracy and continuity of care. An updated list of all your medications is included with your hospital discharge paperwork. Please review this list closely, and make note of any changes. * Please continue taking Aspirin 81mg daily * Please continue taking Atorvastatin 40mg daily * Please continue taking Losartan 25mg daily * Please continue taking Metoprolol Tartrate 25mg daily * Please continue taking Brillinta 90mg twice a day * Please continue taking Pantoprazole 40mg daily * You may continue other vitamins and supplements as tolerated Take your medications as instructed; do not skip a dose of your medicines. Make sure all of your doctors know every medicine you are taking (including o jra-bmi-[id number] medicines, vitamins, and supplements). Call your primary care provider before taking any new medicines (including auwp-xfh-qhcchro medicines, vitamins, and supplements), because some of these may interact with your current medications, or may make your symptoms worse. Tell your primary care provider if you cannot afford your medications. CONTACT YOUR PRIMARY CARE PROVIDER if you experience any of the following: Difficulty breathing that persists after taking several deep breaths Feelings of choking or stopping breathing despite several nights of sleeping in your preferred position Difficulty following your treatment plan, or difficulty taking medications CALL 911 OR GO TO THE EMERGENCY DEPARTMENT if you experience any of the following: Sudden, severe abdominal pain or nausea/vomiting Severe chest pain, or chest pain that radiates (moves) to your jaw or arm Sudden, severe shortness of breath or difficulty breathing Thank you for allowing us to participate in your care. Total Time Total Time Spent Total Time Spent (In Minutes): >30 Supervising Physician Co-Signing Physician Notes I personally examined the patient and verified all lisa points of history and exam, discussed case, and agree with decision making with A Sharath MS3. Feeling okay. No chest pain or pressure like when she had her UT. Left arm numbness was not present when she was having angina. Does have short bouts of shortness of breathbut it is really just as she is falling asleep she notices a feeling of gasping and then wakes up. It is absolutely not a consistent or present feature, and is only been happening since about 3 in the morning, only here in the hospital, not prior to admission. She normally sleeps on her side. Left-sided neck pain. Vitals noted, in general she is awake and alert pleasant no distress. HEENT normocephalic atraumatic mucous membranes moist. Musculoskeletal shows left- sided paraspinals and suboccipitals to be high tone, tender, decreased range of motioninhibitory pressure as well as counterstrain and unwindingimproved, patient tolerated well. Breathing unlabored no accessory muscle use good effort. Skin shows no rashes no pallor or icterus. Recent MIcoronary disease appears to be stable, troponins are trending down, her symptoms are completely different than when she had her UT last weekI do not believe any ACS is at play at all, no that is cardiology. Safe for home. Headache/cervical somatic dysfunctionI really do not think it was a hypertensive urgency, she did not have blurred vision or confusionjust a neck pain mediated headache with corresponding somatic dysfunction. OMT as above Left arm numbnessulnarimproving, suspect related to IV infiltration and compression Gasping when falling asleepnothing pathologic concerning acutelyshe normally sleeps on her side, and has been on her back here and in a strange bed, I really suspect its more just her muscles relaxing as she is falling off to sleep. Did discuss if it were to persist, a formal evaluation for sleep apnea such as a sleep study would be reasonable, but does not appear to be necessary with what were saying at this time. Safe/stable for home, otherwise as above
--- NOTE | 2022-10-08 21:32 | Billing Data ---
Date of Service October 08, 2022 Coding Level of Care Code HOSP INP/OBS DISCH >30 MIN
--- NOTE | 2022-10-09 18:48 | XCELERA ---
[id number]
--- NOTE | 2022-10-09 22:44 | Billing Data ---
Date of Service October 09, 2022 Coding Level of Care Code 34922 INT INP/OBS CARE
== END 2022-10-08 19:01 | disposition home or self-care (01) | DRG 282 ==
LOC: ED 16:27 → EDINP 22:02 → SUATTDRO 22:02 → EDINP 10-08 00:21

== ENCOUNTER 2024-05-04 15:53 | Observation (INO) ==
--- NOTE | 2024-05-04 16:19 | Emergency Department Note ---
Impression & Plan Chest pain ADMIT ED Provider Note HPI: History obtained from patient. The patient is a 64-year-old female with history of coronary artery disease, status post drug eluting stent placement x 3 to the RCA in 2021, presents the emergency department with a chief complaint of chest pain. Patient states that she has had chest pain for about the past 36 hours. Patient states the pain has been relatively constant. Patient states she was seen today in the cardiology office of Dr. Avery by the midlevel provider and was recommended to come to the ER to be assessed for chest pain. On arrival here to the ED the patient is mildly hypertensive but otherwise hemodynamically stable, she is in no apparent distress. Patient states she does have some mild chest discomfort that is substernal in nature. She does confirm that this pain has been constant for the past 36 hours. Patient denies any shortness of breath. Patient states she did take her aspirin and Brilinta this morning as prescribed. ROS: - Per HPI Differential Diagnosis: Acute coronary syndrome/ST elevation [place], unstable angina, esophagitis, pneumothorax, pulmonary embolism, aortic dissection, amongst other potential pathologies. *Outpatient medications and allergy history reviewed. PE: General: Alert HEENT: Normocephalic, trachea midline Eyes: Extraocular eye movement is intact, no scleral erythema Pulmonary: Clear to auscultation bilaterally, no wheezing Cardio: Regular rate and rhythm GI: Abdomen is soft to palpation : No suprapubic tenderness MSK: No evidence of trauma or malformation of the extremities, no edema Skin: No evidence of rash Neuro: Alert, no focal deficits Psychiatric: Cooperative INDEPENDENT INTERPRETATIONS: facilities clerk: (As interpreted by myself): - An order was placed for continuous cardiac monitoring - Patient was noted to be in sinus rhythm with a rate of 68 EKG: (As interpreted by myself): Rate: 60 Rhythm: Normal sinus rhythm Intervals: NM interval prolonged at 208 ms, otherwise within normal limits ST changes: No ST elevation Time: 1609 Chest x-ray: (As interpreted by myself): No acute disease Interventions provided in ED: -Aspirin Medical Decision Making: IV was established and lab work obtained, patient was placed on equip tech. Lab work shows no leukocytosis, hemoglobin is normal, platelet count is normal, CMP does not show any evidence of any critical findings. Initial troponin is negative. EKG does not show any acute ischemic changes per my interpretation. Chest x-ray per my interpretation does not show any evidence of acute disease. On my reassessment the patient is resting comfortably in bed, still does have some mild chest discomfort, this does not sound consistent with acute coronary syndrome however given the patient's history I do think she should be admitted for overnight observation and cardiology consultation. She will likely require further testing and potentially diagnostic catheterization if her chest pain does not improve. I discussed the patient's presentation with the on-call hospitalist, Dr. Mora, and the patient was placed for admission in stable condition. Patient was ordered aspirin here in the ED pending admission. Consultants/Discussions held with other healthcare providers: -Hospitalist, Dr. Mora Disposition discussion held by myself with: -Patient Diagnosis: 1. Chest pain, acute, nonspecific 2. History of coronary artery disease status post multiple drug-eluting stents Disposition: Admission Mick Mohan DO Emergency Medicine Past Med/Surg History Problem List (Updated 05/04/24 @ 17:28 by Mick Mohan DO) Chest pain (Acute) Uterine mass Postmenopausal bleeding Osteoporosis Pain of left heel Diabetes mellitus Asymptomatic postmenopausal state Mixed conductive and sensorineural hearing loss of left ear with restricted hearing of right ear Exertional shortness of breath Mitral regurgitation, acute Coronary artery disease without angina pectoris Numbness and tingling in left arm (Acute) Hearing decreased History of kidney stones Thrombocytosis Pain in both feet Health care maintenance Vitamin D deficiency disease Uterine leiomyoma (Acute) Allergy (Acute) Colon polyp (Acute) Encounter for routine gynecological examination Low back pain (Acute) Spondylosis of lumbar spine (Acute) History of colon polyps Kidney stones Hypertension Atherogenic dyslipidemia Medical History Osteoporosis Diabetes mellitus, type 2 NIDDM Benign essential hypertension Acute electrocardiogram changes Elevated troponin Atherogenic dyslipidemia Acute [place], inferior wall hx 10/04/22, taken to [place], cardiac cath w/3 stents Kidney stones Synovial cyst of popliteal space [Weber], right knee Hyperlipidemia Hypertension Seasonal allergies Surgical History S/P cystoscopy with ureteral stent placement History of heart artery stent History of cardiac cath History of ear surgery H/O colonoscopy with polypectomy History of section History of cataract surgery Family History Father Cardiac disorder Myocardial infarction Mother Hypertension Asthma Sister Hypertension Brother Skin cancer Grandmother (Paternal) Stomach cancer Other No family history of adverse response to anesthesia No family history of bleeding disorder Denies family history of Ovarian cancer Prostate cancer Breast cancer Colorectal cancer Social History (Updated 02/02/24 @ 09:48 by WILMA Metzger) Smoking Status: Never smoker Second Hand Exposure: No; Do You Dip or Chew Tobacco: No; Hx Alcohol Use: No Hx Substance Use: No Preferred Language: Vietnamese Communication Ability: Effective Visual Impairment: No Limitations Hearing Ability: Normal Line Maintenance Supervisor Required: No Beliefs That Will Affect Care: None marital status: Current Living Situation: Spouse current occupational status: retired current occupation: Self-employed Feels Safe at Home: Yes Childhood Exposure to Second-Hand Smoke: Yes Dental Care, Regularly: Yes Physical Activity Frequency: Daily Seatbelt Use: always Sunscreen Use: Yes Assistive Devices: Glasses Allergies Allergies Allergy/AdvReac Type Severity Reaction Status Date / Time No Known Drug Allergies Allergy Verified 05/04/24 14:53 pollen extracts Allergy Verified 05/04/24 14:53 Home Meds Home Medications Medication Instructions Recorded Confirmed cartilage 40 mg-collagen II 10 1 tab PO QPM 11/30/18 05/04/24 mg-boron 5 mg-hyaluronate 3.3 mg tablet ([id number]) cholecalciferol (vitamin D3) 50 50 mcg PO QAM 01/14/22 05/04/24 mcg (2,000 unit) capsule (Vitamin D3) Previous Rx's Medication Instructions Recorded aspirin 81 mg chewable tablet 81 mg PO QAM #90 tabs 10/22/22 atorvastatin 40 mg tablet 40 mg PO QAM 90 days #90 tabs 04/16/23 metoprolol tartrate 25 mg tablet 25 mg PO BID #180 tabs 04/16/23 blood-glucose meter #1 ea 07/20/23 ticagrelor 60 mg tablet (Brilinta) 60 mg PO BID #180 tabs 09/07/23 pantoprazole 40 mg tablet,delayed 40 mg PO QAM #90 tabs 09/15/23 release losartan 25 mg tablet 12.5 mg (1/2 x 25 mg) PO BID #90 01/06/24 tabs empagliflozin 25 mg tablet 25 mg PO QAM #90 tabs 01/19/24 ibandronate 150 mg tablet 150 mg PO Q30D #3 tabs 03/28/24 blood sugar diagnostic (Laurouch #100 ea 05/02/24 Verio test strips) lancets 30 gauge (Nikita Vera #100 ea 05/02/24 Plus Lancet) Results & Data (ED) Vital Signs Vital Signs - 24 hr 05/04/24 15:58 05/04/24 16:33 Temperature 36.6 C Temperature Source Temporal Artery Scan Pulse Rate 66 61 Respiratory Rate 18 Respiratory Effort / Characteristics Non-Labored Respiratory Depth Normal Respiratory Pattern Regular Blood Pressure 170/83 H Blood Pressure Mean 112 Pulse Oximetry 95 Oxygen Delivery Method Room Air Sepsis Recent Fever Within 48 Hours No Sepsis New/Unexplained Change in Mental Status N/A Sepsis Action Taken by Nursing No Action Required Laboratory Data 05/04/24 16:17 05/04/24 16:17 Lab Results 05/04/24 Range/Units 16:17 WBC 10.58 (4.8-10.8) K/ul RBC 4.58 (4.20-5.40) M/uL Hgb 13.2 (12.0-16.0) g/dl Hct 40.4 (37.0-47.0) % MCV 88.2 (80.0-100.0) fL MCH 28.8 (25.0-34.0) pg MCHC 32.7 (32.0-36.0) g/dL RDW Std Deviation 42.6 (36.4-46.3) fL RDW Coeff of Bg 13.2 (11.5-14.5) % Plt Count 332 (130-400) K/uL MPV 8.9 L (9.4-12.4) fL Immature Gran % (Auto) 0.4 % Neut % (Auto) 58.6 % Lymph % (Auto) 32.7 % [place] % (Auto) 6.3 % Eos % (Auto) 1.5 % Baso % (Auto) 0.5 % Neut # (Auto) 6.20 (1.40-6.50) K/uL Lymph # (Auto) 3.46 H (1.20-3.40) K/uL [place] # (Auto) 0.67 H (0.11-0.59) K/uL Eos # (Auto) 0.16 (0.00-0.50) K/uL Baso # (Auto) 0.05 (0.00-0.20) K/uL Immature Gran # (Auto) 0.04 (0.01-0.20) K/uL PT 9.5 (9.0-12.0) Seconds INR 0.9 (0.9-1.1) Sodium 141 (136-145) mmol/L Potassium 4.2 (3.5-5.1) mmol/L Chloride 109 H (98-107) mmol/L Carbon Dioxide 24 (21-32) mmol/L Anion Gap 8 (3-11) BUN 18 (6-23) mg/dl Creatinine 0.58 L (0.6-1.2) mg/dl Est Cr Clr Drug Dosing 73.7 ml/min Est GFR ( Amer) 111.3 ml/min Est GFR (Non-Af Amer) 96.1 ml/min BUN/Creatinine Ratio 31.0 H (10-20) Glucose 123 H (70-99(Fasting)) mg/dl Calcium 9.8 (8.6-10.3) mg/dl Total Bilirubin 0.5 (0.2-1.0) mg/dl AST 15 (13-39) U/L ALT 17 (7-52) U/L Alkaline Phosphatase 48 (34-104) U/L Troponin I High Sens < 2.3 (0-14) pg/ml Total Protein 7.0 (6.0-8.3) gm/dl Albumin 4.5 (3.4-5.0) gm/dl Globulin 2.5 (2.5-4.0) gm/dl Albumin/Globulin Ratio 1.8 (0.9-2) Lipase 42 (11-82) U/L Administered Medications Discontinued Medications Aspirin (Aspirin Chew 324 Mg) 324 mg PO NOW STA Stop: 05/04/24 17:19 Last Admin: 05/04/24 17:31 Dose: 324 mg Documented By: Imaging Data Radiologist's Impression: Chest X-Ray 05/04/24 16:11 XR chest 1V portable HISTORY: 64 years-old Female Chest pain, nonspecific COMPARISON: 10/07/2022 TECHNIQUE: AP view of the chest FINDINGS: Cardiomediastinal and hilar silhouettes are within normal limits. The lungs appear clear. No pneumothorax or pleural effusion. Bones appear grossly intact. IMPRESSION: No acute process. ACT 112: Negative or not required by law. The above report was generated using voice recognition software. It may contain grammatical, syntax or spelling errors. Electronically signed by: Aden Perales M.D. 05/04/2024 5:35 PM Discharge Plan Visit Data Chief Complaint: Chest Pain Stated Complaint: CHEST PAINS ED Provider: Mick Mohan Discharge Problem: Chest pain Forms Stand Alone Forms: [facility] Moni Prescriptions Prescriptions: No Action atorvastatin 40 mg tablet 40 mg PO QAM 90 Days Qty: 90 3RF metoprolol tartrate 25 mg tablet 25 mg PO BID Qty: 180 3RF (DME) blood-glucose meter Kit See Rx Instructions miscellaneous .MEDSUPPLY Qty: 1 0RF Rx Instructions: As directed Brilinta 60 mg tablet 60 mg PO BID Qty: 180 3RF pantoprazole 40 mg tablet,delayed release (DR/EC) 40 mg PO QAM Qty: 90 1RF losartan 25 mg tablet 12.5 mg PO BID Qty: 90 3RF empagliflozin 25 mg tablet 25 mg PO QAM Qty: 90 3RF ibandronate 150 mg tablet 150 mg PO Q30D Qty: 3 3RF (DME) OneTouch Verio test strips Strip See Rx Instructions miscellaneous .MEDSUPPLY Qty: 100 3RF Rx Instructions: Check blood sugar 1x a day (DME) lancets [OneTouch Delica Plus Lancet] 30 gauge misc See Rx Instructions miscellaneous .MEDSUPPLY Qty: 100 3RF Rx Instructions: Change new lancet after each use 1x a day aspirin 81 mg tablet,chewable 81 mg PO QAM Qty: 90 3RF [facility] 40-10-5-3.3 mg Tablet 1 tab PO QPM cholecalciferol (vitamin D3) [Vitamin D3] 50 mcg (2,000 unit) Capsule 50 mcg PO QAM Referrals Referrals: Argenis Fontaine MD [Primary Care Provider] - Discharge Problem: Chest pain Qualifiers: Chest pain type: unspecified Qualified Code(s): R07.9 - Chest pain, unspecified
[2024-05-04 16:45] LABS: Basophils # (auto) 0.05 K/uL (0.00-0.20); Basophils % (auto) 0.5 %; Eosinophils # (auto) 0.16 K/uL (0.00-0.50); Eosinophils % (auto) 1.5 %; Hematocrit (blood only) 40.4 % (37.0-47.0); Hemoglobin 13.2 g/dl (12.0-16.0); Immature Granulocytes # (auto) 0.04 K/uL (0.01-0.20); Immature Granulocytes % (auto) 0.4 %; Lymphocytes # (auto) 3.46 K/uL (1.20-3.40); Lymphocytes % (auto) 32.7 %; Mean Corpuscular Hemoglobin 28.8 pg (25.0-34.0); Mean Corpuscular Hgb Conc 32.7 g/dL (32.0-36.0); Mean Corpuscular Volume 88.2 fL (80.0-100.0); Mean Platelet Volume 8.9 fL (9.4-12.4); Monocytes # (auto) 0.67 K/uL (0.11-0.59); Monocytes % (auto) 6.3 %; Neutrophils % (auto) 58.6 %; Platelet Count 332 K/uL (130-400); RDW Coefficient of Variation 13.2 % (11.5-14.5); RDW Standard Deviation 42.6 fL (36.4-46.3); Red Blood Count 4.58 M/uL (4.20-5.40); White Blood Count 10.58 K/ul (4.8-10.8)
[2024-05-04 17:08] LABS: INR 0.9 (0.9-1.1); Prothrombin Time 9.5 Seconds (9.0-12.0)
[2024-05-04 17:11] LABS: Troponin I High Sensitivity < 2.3 pg/ml (0-14)
[2024-05-04] MEDS: ASPIRIN CHEW 324 MG PO STA (17:31)
--- NOTE | 2024-05-04 17:36 | XRay Report ---
XR chest 1V portable HISTORY: 64 years-old Female Chest pain, nonspecific COMPARISON: 10/07/2022 TECHNIQUE: AP view of the chest FINDINGS: Cardiomediastinal and hilar silhouettes are within normal limits. The lungs appear clear. No pneumoth orax or pleural effusion. Bones appear grossly intact. IMPRESSION: No acute process. ACT 112: Negative or not required by law. The above report was generated using voice recognition software. It may contain grammatical, syntax o r spelling errors. Electronically signed by: Aden Perales M.D. 05/04/2024 5:35 PM
[2024-05-04 17:37] LABS: Albumin Level 4.5 gm/dl (3.4-5.0); Anion Gap 8 (3-11); Bilirubin,Total 0.5 mg/dl (0.2-1.0); Calcium 9.8 mg/dl (8.6-10.3); Carbon Dioxide 24 mmol/L (21-32); Chloride 109 mmol/L (98-107); Potassium 4.2 mmol/L (3.5-5.1); Sodium 141 mmol/L (136-145)
[2024-05-04 17:43] LABS: Alanine Aminotransferase 17 U/L (7-52); Albumin Globulin Ratio 1.8 (0.9-2); Alkaline Phosphatase 48 U/L (34-104); Aspartate Aminotransferase 15 U/L (13-39); Blood Urea Nitrogen 18 mg/dl (6-23); Creatinine Clr Calc Pharmacy 73.7 ml/min; Est GFR (African American) 111.3 ml/min; Est GFR (Non-African American) 96.1 ml/min; Globulin 2.5 gm/dl (2.5-4.0); Glucose 123 mg/dl (70-99(Fasting)); Lipase 42 U/L (11-82)
--- NOTE | 2024-05-04 18:05 | History & Physical Report ---
Date of Service May 04, 2024 Assessment & Plan (1) Chest pain: Plan: Substernal chest pain that began Thursday 05/03 around 1 AM and woke patient from sleep; patient reports has been constant since [facility] Aspirin 324 mg p.o. given in the ED Troponin WNL on arrival, will repeat EKG without acute changes from prior Heart score risk: 4 (moderate) Patient endorses 36 hours of constant chest pain; without a concomitant rise in troponin, suspicion for cardiac etiology is lowered However, given patient's significant cardiac history and atherosclerotic risk factors, will monitor patient overnight Echocardiogram ordered for the morning of 05/05 Continue aspirin, ticagrelor, metoprolol, and statin Continues telemetry monitoring EKG as needed for chest pain A.m. CBC, BMP, mag, troponin (2) History of ST elevation myocardial infarction (STEMI): Plan: 10/04/2022; s/p JAY x 3 to the RCA [facility] (3) Diabetes mellitus, type 2: Plan: Last A1c at 6.6% on 01/18/2024 Hold Jardiance SSI; with target BSG range 110-140mg/dL, CF 50, carb ratio 15 T2DM diet BSG ACHS Adjust regimen as needed (4) Atherogenic dyslipidemia: Plan: Most recent fasting lipid panel in January 2024 was WNL; LDL 68 Continue atorvastatin (5) Hypertension: Plan: Continue losartan, metoprolol Plan Disposition: Obs - Admit to MedSur telemetry Full code Heart healthy, T2DM diet VTE PPx: SCDs History of Present Illness Chief Complaint: Substernal chest pain Primary Care Provider: Argenis Fontaine MD Ele is a 64-year-old female with PMH of STEMI s/p 3 JAY to RCA in 2021, T2DM, HTN, atherogenic dyslipidemia, CAD, kidney stones, and uterine myoma. She presented on 05/04 at the behest of her internet project manager for substernal chest pain. This pain has been ongoing for 36 hours. She reports it woke her from sleep on Thursday morning at 1 AM, and has been constant since. No radiation to the shoulders, arms, or back. She is unable to characterize it, but rates it 4/10- 5/10 at worst. She has not taken any additional medications for the pain. Patient took all of her regular morning medications today; no recent change in medications; patient manages her own medicine at home. She endorsed he was sick last week with a low-grade fever (around 99 F), chills, and GI discomfort, but this resolved after taking Tylenol for a couple days. Patient thinks he may have been after eating a bad hotdog; she denies any recent changes in diet. She denies history of GERD; however patient does take Protonix as needed. She is not having any chest palpitations, SOB, cough, or symptoms besides the substernal chest pain. However, she does endorse significant cardiac history and risk factors; T2DM, HTN, STEMI, and dyslipidemia. She denies smoking and tobacco use. Patient is hypertensive at 170/83 at time of admission; vitals otherwise stable. ED course: Aspirin 324 mg p.o. ROS: Patient endorses constant substernal chest pain, and recent GI illness (which r esolved last week). Patient denies current fever, chills, night sweats, dizziness, lightheadedness, headache, left arm or shoulder pain/pressure, upper back pain, SOB, pleuritic CP, cough, abdominal pain, N/V/D, changes in urinary or bowel habits, or numbness or tingling in arms or legs. Allergies Allergy/AdvReac Type Severity Reaction Status Date / Time No Known Drug Allergies Allergy Verified 05/04/24 14:53 pollen extracts Allergy Verified 05/04/24 14:53 Home Medications Medication Instructions Recorded Confirmed Type cholecalciferol (vitamin D3) 50 50 mcg PO QAM 01/14/22 05/04/24 History mcg (2,000 unit) capsule (Vitamin D3) aspirin 81 mg chewable tablet 81 mg PO QAM #90 tabs 10/22/22 05/04/24 Rx atorvastatin 40 mg tablet 40 mg PO QAM 90 days #90 tabs 04/16/23 05/04/24 Rx metoprolol tartrate 25 mg tablet 25 mg PO BID #180 tabs 04/16/23 05/04/24 Rx blood-glucose meter #1 ea 07/20/23 05/04/24 Rx ticagrelor 60 mg tablet (Brilinta) 60 mg PO BID #180 tabs 09/07/23 05/04/24 Rx losartan 25 mg tablet 12.5 mg (1/2 x 25 mg) PO BID #90 01/06/24 05/04/24 Rx tabs empagliflozin 25 mg tablet 25 mg PO QAM #90 tabs 01/19/24 05/04/24 Rx ibandronate 150 mg tablet 150 mg PO Q30D #3 tabs 03/28/24 05/04/24 Rx blood sugar diagnostic (OneTouch #100 ea 05/02/24 05/04/24 Rx Verio test strips) lancets 30 gauge (OneTouch Delica #100 ea 05/02/24 05/04/24 Rx Plus Lancet) pantoprazole 40 mg tablet,delayed 40 mg PO DAILY PRN Other 05/04/24 05/04/24 History release Past Med/Surg History Problem List (Updated 05/04/24 @ 18:10 by Steve Liz PA-C) History of ST elevation myocardial infarction (STEMI) Diabetes mellitus, type 2 NIDDM Chest pain (Acute) Uterine mass Postmenopausal bleeding Osteoporosis Pain of left heel Diabetes mellitus Asymptomatic postmenopausal state Mixed conductive and sensorineural hearing loss of left ear with restricted hearing of right ear Exertional shortness of breath Mitral regurgitation, acute Coronary artery disease without angina pectoris Numbness and tingling in left arm (Acute) Hearing decreased History of kidney stones Thrombocytosis Pain in both feet Health care maintenance Vitamin D deficiency disease Uterine leiomyoma (Acute) Allergy (Acute) Colon polyp (Acute) Encounter for routine gynecological examination Low back pain (Acute) Spondylosis of lumbar spine (Acute) History of colon polyps Kidney stones Hypertension Atherogenic dyslipidemia Medical History Osteoporosis Diabetes mellitus, type 2 NIDDM Benign essential hypertension Acute electrocardiogram changes Elevated troponin Atherogenic dyslipidemia Acute [place], inferior wall hx 10/04/22, taken to [place], cardiac cath w/3 stents Kidney stones Synovial cyst of popliteal space [Weber], right knee Hyperlipidemia Hypertension Seasonal allergies Surgical History S/P cystoscopy with ureteral stent placement History of heart artery stent History of cardiac cath History of ear surgery H/O colonoscopy with polypectomy History of section History of cataract surgery Family History Father Cardiac disorder Myocardial infarction Mother Hypertension Asthma Sister Hypertension Brother Skin cancer Grandmother (Paternal) Stomach cancer Other No family history of adverse response to anesthesia No family history of bleeding disorder Denies family history of Ovarian cancer Prostate cancer Breast cancer Colorectal cancer Social History (Updated 02/02/24 @ 09:48 by WILMA Metzger) Smoking Status: Never smoker Second Hand Exposure: No; Do You Dip or Chew Tobacco: No; Hx Alcohol Use: No Hx Substance Use: No Preferred Language: Georgian Communication Ability: Effective Visual Impairment: No Limitations Hearing Ability: Normal Paper Sheeter Required: No Beliefs That Will Affect Care: None marital status: Current Living Situation: Spouse current occupational status: retired current occupation: Self-employed Feels Safe at Home: Yes Childhood Exposure to Second-Hand Smoke: Yes Dental Care, Regularly: Yes Physical Activity Frequency: Daily Seatbelt Use: always Sunscreen Use: Yes Assistive Devices: Glasses Review of Systems Review of Systems: See HPI above Physical Exam Physical Exam: General: no acute distress; pleasant affect; non-toxic appearing; well- nourished; cooperative HEENT: normocephalic, atraumatic; no scleral icterus; PERRLA; vision and hearing intact Neck: supple; no lymphadenopathy; trachea midline Skin: warm, dry without signs of tenting; no cyanosis; no rashes, bruising, lesions, or erythema noted CV: chest wall NTP; pain is not reproducible with palpation of the sternum or shoulders; RRR; S1/S2 normal; no murmurs/rubs/gallops; pulses intact and symmetric at radial, DP, and PT Lungs: no acute respiratory distress; symmetrical chest wall expansion; clear breath sounds across all lung marquez w/o adventitious sounds; no wheezing ABD: Soft, NTP; BS present; no rebound/guarding; no distention MSK: no tics or fasciculations; no edema noted in the LEs b/l, nonerythematous Neuro: A&Ox3; normal mood and affect; fluent speech; no focal deficits; sensation grossly intact in the LEs b/l Results & Data Results & Data Vital Signs (Past 12 Hours) Vital Signs Temp Pulse Resp BP Pulse Ox O2 Del Method 05/04/24 16:33 61 05/04/24 15:58 36.6 C 66 18 170/83 H 95 Room Air Laboratory Results Abnormal lab results 05/04/24 Range/Units 16:17 MPV 8.9 L (9.4-12.4) fL Lymph # (Auto) 3.46 H (1.20-3.40) K/uL [place] # (Auto) 0.67 H (0.11-0.59) K/uL Chloride 109 H (98-107) mmol/L Creatinine 0.58 L (0.6-1.2) mg/dl BUN/Creatinine Ratio 31.0 H (10-20) Glucose 123 H (70-99(Fasting)) mg/dl Diagnostic Findings Chest X-Ray 05/04/24 16:11 XR chest 1V portable HISTORY: 64 years-old Female Chest pain, nonspecific COMPARISON: 10/07/2022 TECHNIQUE: AP view of the chest FINDINGS: Cardiomediastinal and hilar silhouettes are within normal limits. The lungs appear clear. No pneumothorax or pleural effusion. Bones appear grossly intact. IMPRESSION: No acute process. ACT 112: Negative or not required by law. The above report was generated using voice recognition software. It may contain grammatical, syntax or spelling errors. Electronically signed by: Aden Perales M.D. 05/04/2024 5:35 PM ECG Additional Comments: ECG revealed NSR at 60 bpm; QTc 394 No significant changes when compared to EKG on January 11, 2024 Code Status & VTE Plan Code Status Full code VTE Prophylaxis Plan VTE Prophylaxis will be ordered: Yes Supervising Physician Co-Signing Physician Notes Patient seen and examined, chart reviewed, case discussed with Steve Liz PA-C and I agree with the assessment and plan as above except as otherwise noted Labs and images reviewed 64-year-old female with past medical history of STEMI with PCI to the RCA, type II DM, hypertension, hyperlipidemia, uterine myoma presents for substernal chest pain lasting 36 hours. Recommended for admission due to elevated heart score. no radiation, but 45/10 in intensity. Prevented her from playing golf, is typically active and plays golf with no exertional pain recently. Exertion does not worsen the pain. No dyspnea. Did have some fever and GI symptoms 1 week prior. No prior history of GERD. No reproducible pain on palpation. No epigastric tenderness. Patient was admitted for cardiac observation, notes high level of concern given that her markers were normal just prior to having a heart attack previously. As she has had pain for more than 24 hours with 2 times normal troponin and a EKG without acute changes extremely unlikely to be acute event/ACS. Will obtain ultrasound in the morning. Epigastrium is nontender and does not have or endorse any GERD symptoms, and laying down actually improved her symptoms. Does not have any reproducible pain or tenderness to suggest MSK origin. Was documented as transiently hypotensive while sleeping, on recheck she is normotensive and pulse is normal. She has not had dyspnea at any time, and she does not have pleuritic/inspiratory pain to suggest PE. No leg swelling. No chest pain outside of provider evaluation on the floor, lungs are clear, heart is regular and without murmur. No leg swelling or calf tenderness. No chest wall tenderness. PG Care Time/CCT Total # of Minutes Spent Total Time Spent with Patient: Total time spent is greater than 50% in coordination of care (as documented) at patient's floor/unit and/or counseling patient: [place] [address] INT INP/OBS CARE 2/55MIN Patient Type Established Medical Decision Making Moderate Complexity Diagnoses Chest pain R07.9 Chest pain type: unspecified History of ST elevation myocardial infarction (STEMI) I25.2 Diabetes mellitus, type 2 E11.9 Atherogenic dyslipidemia E78.5 Hypertension I10 (1) Chest pain Chest pain type: unspecified Qualified Code(s): R07.9 - Chest pain, unspecified
[2024-05-04] MEDS: PANTOprazole 40 MG TAB PO ONE (18:30)
[2024-05-04] MEDS ORDERED: GLUCOSE 40% GEL 15 GM TUBE PO PRN (20:52)
[2024-05-04] MEDS ORDERED: DEXTROSE 50% 50 ML SYRINGE IV PRN (20:52)
[2024-05-04] MEDS ORDERED: ACETAMINOPHEN 325 MG TAB PO PRN (20:52)
[2024-05-04] MEDS ORDERED: GLUCAGON FOR INJ 1 MG VIAL SQ PRN (20:52)
[2024-05-04] MEDS ORDERED: GLUCOSE 10 TAB/TUBE PO PRN (20:52)
[2024-05-04] MEDS ORDERED: CARBOHYDRATES FOR HYPOGLYCEMIA PO PRN (20:52)
[2024-05-04] MEDS: INSULIN ASPART PER UNIT CHARGE SC SCH (21:33)
[2024-05-04] MEDS: LOSARTAN POTASSIUM 25 MG TAB PO SCH (21:58)
[2024-05-04] MEDS: METOPROLOL TARTRATE 25 MG TAB PO SCH (21:58)
[2024-05-05 07:20] LABS: Basophils # (auto) 0.04 K/uL (0.00-0.20); Basophils % (auto) 0.6 %; Eosinophils % (auto) 1.4 %; Hematocrit (blood only) 40.4 % (37.0-47.0); Hemoglobin 13.3 g/dl (12.0-16.0); Immature Granulocytes # (auto) 0.03 K/uL (0.01-0.20); Immature Granulocytes % (auto) 0.4 %; Lymphocytes # (auto) 2.72 K/uL (1.20-3.40); Lymphocytes % (auto) 37.8 %; Mean Corpuscular Hgb Conc 32.9 g/dL (32.0-36.0); Mean Platelet Volume 9.1 fL (9.4-12.4); Monocytes # (auto) 0.41 K/uL (0.11-0.59); Monocytes % (auto) 5.7 %; Neutrophils # (auto) 3.89 K/uL (1.40-6.50); Neutrophils % (auto) 54.1 %; Platelet Count 320 K/uL (130-400); RDW Standard Deviation 41.8 fL (36.4-46.3); Red Blood Count 4.59 M/uL (4.20-5.40); White Blood Count 7.19 K/ul (4.8-10.8)
[2024-05-05 07:45] LABS: Anion Gap 8 (3-11); BUN Creatinine Ratio 29.1 (10-20); Blood Urea Nitrogen 16 mg/dl (6-23); Carbon Dioxide 23 mmol/L (21-32); Chloride 109 mmol/L (98-107); Creatinine Clr Calc Pharmacy 75.9 ml/min; Est GFR (African American) 113.3 ml/min; Est GFR (Non-African American) 97.7 ml/min; Glucose 99 mg/dl (70-99(Fasting)); Magnesium 2.1 mg/dl (1.7-2.4); Potassium 4.3 mmol/L (3.5-5.1); Sodium 140 mmol/L (136-145)
[2024-05-05 07:51] LABS: Troponin I High Sensitivity < 2.3 pg/ml (0-14)
[2024-05-05] MEDS: ASPIRIN 81 MG CHEW PO SCH (09:26)
[2024-05-05] MEDS: PANTOprazole 40 MG TAB PO SCH (09:26)
[2024-05-05] MEDS: ATORVASTATIN 40 MG TAB PO SCH (09:26)
--- NOTE | 2024-05-05 12:14 | XCELERA ---
[id number] \\[id number]
--- NOTE | 2024-05-05 12:23 | Discharge Summary ---
Date of Service May 05, 2024 Admission HPI Per Admitting Provider Ele is a 64-year-old female with PMH of STEMI s/p 3 JAY to RCA in 2021, T2DM, HTN, atherogenic dyslipidemia, CAD, kidney stones, and uterine myoma. She presented on 05/04 at the behest of her master [place] for substernal chest pain. This pain has been ongoing for 36 hours. She reports it woke her from sleep on Thursday morning at 1 AM, and has been constant since. No radiation to the shoulders, arms, or back. She is unable to characterize it, but rates it 4/10- 5/10 at worst. She has not taken any additional medications for the pain. Patient took all of her regular morning medications today; no recent change in medications; patient manages her own medicine at home. She endorsed he was sick last week with a low-grade fever (around 99 F), chills, and GI discomfort, but this resolved after taking Tylenol for a couple days. Patient thinks he may have been after eating a bad hotdog; she denies any recent changes in diet. She denies history of GERD; however patient does take Protonix as needed. She is not having any chest palpitations, SOB, cough, or symptoms besides the substernal chest pain. However, she does endorse significant cardiac history and risk factors; T2DM, HTN, STEMI, and dyslipidemia. She denies smoking and tobacco use. Patient is hypertensive at 170/83 at time of admission; vitals otherwise stable. ED course: Aspirin 324 mg p.o. ROS: Patient endorses constant substernal chest pain, and recent GI illness (which resolved last week). Patient denies current fever, chills, night sweats, dizziness, lightheadedness, headache, left arm or shoulder pain/pressure, upper back pain, SOB, pleuritic CP, cough, abdominal pain, N/V/D, changes in urinary or bowel habits, or numbness or tingling in arms or legs. Admission Exam Per Admitting Provider General: no acute distress; pleasant affect; non-toxic appearing; well- nourished; cooperative HEENT: normocephalic, atraumatic; no scleral icterus; PERRLA; vision and hearing intact Neck: supple; no lymphadenopathy; trachea midline Skin: warm, dry without signs of tenting; no cyanosis; no rashes, bruising, lesions, or erythema noted CV: chest wall NTP; pain is not reproducible with palpation of the sternum or shoulders; RRR; S1/S2 normal; no murmurs/rubs/gallops; pulses intact and symmetric at radial, DP, and PT Lungs: no acute respiratory distress; symmetrical chest wall expansion; clear breath sounds across all lung marquez w/o adventitious sounds; no wheezing ABD: Soft, NTP; BS present; no rebound/guarding; no distention MSK: no tics or fasciculations; no edema noted in the LEs b/l, nonerythematous Neuro: A&Ox3; normal mood and affect; fluent speech; no focal deficits; sensation grossly intact in the LEs b/l Principal Diagnosis chest pain Discharge Exam Constitutional WD/WN, vitals as above Respiratory normal respiratory effort, lungs clear to auscultation Cardiovascular RRR, no murmur, no edema Skin no rashes, warm and dry Psychiatric A+Ox3, euthymic affect Discharge Data Allergies Allergy/AdvReac Type Severity Reaction Status Date / Time No Known Drug Allergies Allergy Verified 05/04/24 14:53 pollen extracts Allergy Verified 05/04/24 14:53 Consultations 05/04/24 17:23 ED Decision to Admit Stat Ordered Studies Chest X-Ray 05/04/24 16:11 XR chest 1V portable HISTORY: 64 years-old Female Chest pain, nonspecific COMPARISON: 10/07/2022 TECHNIQUE: AP view of the chest FINDINGS: Cardiomediastinal and hilar silhouettes are within normal limits. The lungs appear clear. No pneumothorax or pleural effusion. Bones appear grossly intact. IMPRESSION: No acute process. ACT 112: Negative or not required by law. The above report was generated using voice recognition software. It may contain grammatical, syntax or spelling errors. Electronically signed by: Aden Perales M.D. 05/04/2024 5:35 PM Abnormal lab results 05/04/24 05/04/24 05/05/24 Range/Units 16:17 20:53 06:01 MPV 8.9 L 9.1 L (9.4-12.4) fL Lymph # (Auto) 3.46 H (1.20-3.40) K/uL Merrick # (Auto) 0.67 H (0.11-0.59) K/uL Chloride 109 H 109 H (98-107) mmol/L Creatinine 0.58 L 0.55 L (0.6-1.2) mg/dl BUN/Creatinine Ratio 31.0 H 29.1 H (10-20) Glucose 123 H (70-99(Fasting)) mg/dl POC Glucose 131 H (70-99) mg/dl 05/05/24 Range/Units 08:18 MPV (9.4-12.4) fL Lymph # (Auto) (1.20-3.40) K/uL Merrick # (Auto) (0.11-0.59) K/uL Chloride (98-107) mmol/L Creatinine (0.6-1.2) mg/dl BUN/Creatinine Ratio (10-20) Glucose (70-99(Fasting)) mg/dl POC Glucose 105 H (70-99) mg/dl Hospital Course (1) Chest pain: (2) History of ST elevation myocardial infarction (STEMI): (3) Diabetes mellitus, type 2: (4) Atherogenic dyslipidemia: (5) Hypertension: Plan Chest Pain: Presented with constant substernal chest pain x36 hours Troponin negative x3 EKG without acute changes Echocardiogram with normal LV systolic function, EF 60-65%, no regional wall motion abnormalities, no significant valvular abnormalities Continue aspirin, ticagrelor, metoprolol, and statin Spontaneous resolution of chest pain at time of discharge - unclear etiology for presenting sx, concerning pathology largely ruled out. HTN: BP persistently elevated during hospital stay, with systolic BP generally between 140-180 Continue home antihypertensives - losartan, metoprolol - would recommend home monitoring following discharge. Consider titration of home regimen as needed. Total Time Total Time Spent Total Time Spent (In Minutes): see attending attestation Discharge Plan Discharge Items Patient Disposition: Home - Self-Care Reason For Visit: SUBSTERNAL CHEST PAIN, CARDIAC HX Discharge Diagnosis: chest pain Activity: As commented below Activity Comment: gradual activity progression as tolerated Non-emergency contact: Primary Care Provider and Medical Physiologist Call non-emergency contact if: you have any medication questions and your symptoms worsen Follow-up/Referrals: Argenis Fontaine MD [Primary Care Provider] - 05/23/24 11:00 am Diet: Carb Consistent or DM2 and Heart Healthy Addtl Attending Provider Instructions: You were admitted to the hospital due to chest pain. We did a thorough work up that included lab work and imaging. You had an EKG that was largely normal. We checked your troponin (a heart enzyme that is elevated when there is any kind of cardiac damage) at three separate times, and it was normal each time. We also did an echocardiogram (an ultrasound to look at the heart), and this showed normal anatomy and pumping function. Because all these studies came back negative, it is not clear what caused your chest discomfort. Fortunately, we were at least able to rule out the most serious pathology. We did notice that your blood pressure was somewhat elevated throughout your hospital stay. Following discharge, we recommend home blood pressure monitoring - if your blood pressure continues to be elevated, your primary care doctor or master [place] may recommend altering your blood pressure medications. Pending Studies at Discharge: No Stand-Alone Forms: My [facility] [employer], Smoking Cessation Medications and DC Order Prescriptions: Continued atorvastatin 40 mg tablet 40 mg PO QAM 90 Days Qty: 90 3RF metoprolol tartrate 25 mg tablet 25 mg PO BID Qty: 180 3RF (DME) blood-glucose meter Kit See Rx Instructions miscellaneous .MEDSUPPLY Qty: 1 0RF Rx Instructions: As directed Brilinta 60 mg tablet 60 mg PO BID Qty: 180 3RF losartan 25 mg tablet 12.5 mg PO BID Qty: 90 3RF empagliflozin 25 mg tablet 25 mg PO QAM Qty: 90 3RF ibandronate 150 mg tablet 150 mg PO Q30D Qty: 3 3RF (DME) OneTouch Verio test strips Strip See Rx Instructions miscellaneous .MEDSUPPLY Qty: 100 3RF Rx Instructions: Check blood sugar 1x a day (DME) lancets [OneTouch Delica Plus Lancet] 30 gauge misc See Rx Instructions miscellaneous .MEDSUPPLY Qty: 100 3RF Rx Instructions: Change new lancet after each use 1x a day aspirin 81 mg tablet,chewable 81 mg PO QAM Qty: 90 3RF cholecalciferol (vitamin D3) [Vitamin D3] 50 mcg (2,000 unit) Capsule 50 mcg PO QAM pantoprazole 40 mg tablet,delayed release (DR/EC) 40 mg PO DAILY PRN (Reason: Other) Discharge Orders: Discharge Order (Routine); Ordered 05/05/24 Ordered By: Doc Mccarthy Admission Data Admit Date/Time: 05/04/24 18:24 Attending Provider: Lencho Rodriguez Admit Provider: Christian Mora Primary Care Provider: Argenis Fontaine V. Other Providers: Christian Mora Other Interventions: Discharge Summary Assessment (RN) Last Done: 05/05/24 12:48 Supervising Physician Co-Signing Physician Notes I personally examined the patient and verified all lisa points of history and exam, discussed case, and agree with decision making with Dr Mccarthy Feels up to going home. Updated on results. Vitals noted, in general she is awake and alert pleasant no distress. HEENT normocephalic atraumatic mucous membranes moist. Breathing unlabored no accessory muscle use good effort. Skin without rashes pallor or icterus. Labs and diagnostics noted. Chest paingiven 36 hours nonstop, negative cardiac enzymes/EKG and echo are effectively ruling out any coronary/cardiac pathology. Lack of hypoxia lack of tachycardia is extremely reassuring from PE (as are her symptoms)likely musculoskeletal or gastrointestinaleither way safe/stable for home. Otherwise as above. Resident Activity Tracking Resident Involvement: Resident Care Provided Care Provided: Adult Hospital Medicine
--- NOTE | 2024-05-05 17:46 | Billing Data ---
Date of Service May 05, 2024 Coding Level of Care Code 64699 IN/OBS DISCH 30 MIN/LESS
--- NOTE | 2024-05-06 18:32 | Electrocardiogram Report ---
Test Reason : Blood Pressure : / mmHG Vent. Rate : 060 BPM Atrial Rate : 060 BPM P-R Int : 172 ms QRS Dur : 098 ms QT Int : 394 ms P-R-T Axes : 030 003 043 degrees QTc Int : 394 ms Normal sinus rhythm Normal ECG When compared with ECG of 11-JAN-2024 10:39, No significant change was found Confirmed by Anand Rodríguez ([id number]) on 05/06/2024 6:32:00 PM Referred By: Confirmed By:Anand Rodríguez
== END 2024-05-05 13:08 | disposition home or self-care (01) ==
LOC: EDINP 15:53 → ED 15:53 → SUATTDRO 18:24 → 2N 20:50